=== PATIENT | female | born 1970 | race Caucasian/White ===

== ENCOUNTER 2018-03-25 20:27 | Inpatient (IN) | payer OTHER ==
[2018-03-25] MEDS ORDERED: Lactated Ringer's 500 ML in Lactated Ringer's 1,000 ML IV STA (21:52)
--- NOTE | 2018-03-25 22:24 | ED PDOC ---
"Arrival/HPI - General Chief Complaint: Abdominal Pain Time Seen by Provider: 03/25/18 21:49 Historian: Patient EM Caveat: Acuity of Condition - History of Present Illness Narrative History of Present Illness (Text): 03/25/18 22:14 Pt is a 47 yr old female with Left breast cancer and METS to the bone who presents to the Emergency department with right upper quadrant pain that radiates to the back and into the groin x 3 weeks. She is here today because the pain became very exquisite with nocturnal pain in the last 4 days. Pt reports that she is on oral chemotherapy since last March 2017 and receives hormone therapy injections. Reports that abdominal pain is worse while lying down; painful prior to defecating and becoming nauseated until she passes stool , then has relief of pain. Denies vomiting, diarrhea, change in urine, bowel, skin, no fever or chills, or any other complaints Time/Duration: > week Symptom Onset: Gradual Symptom Course: Worsening Quality: Pressure, Stabbing Severity Level: 6 Activities at Onset: Rest Context: Home Past Medical History - Provider Review Nursing Documentation Reviewed: Yes - Travel History Have you recently traveled outside [place] w/in the past 3 mons?: No - Infectious Disease Hx of Infectious Diseases: None - Cardiac Hx Cardiac Disorders: No - Pulmonary Hx Respiratory Disorders: No - Neurological Hx Neurological Disorder: No - HEENT Hx HEENT Disorder: No - Endocrine/Metabolic Hx Endocrine Disorders: No - Hematological/Oncological Hx Blood Disorders: Yes Hx Cancer: Yes (LEFT BREAST CANCER with mets) Other/Comment: Left breast CA stage 4 - Integumentary Hx Dermatological Disorder: Yes Other/Comment: RASH FROM BIOPSY ON LEFT BREAST - Musculoskeletal/Rheumatological Hx Falls: No - Gastrointestinal Hx Gastrointestinal Disorders: No - Genitourinary/Gynecological Hx Genitourinary Disorders: No - Psychiatric Hx Psychophysiologic Disorder: No Hx Substance Use: No - Surgical History Hx Breast Biopsy: Yes Other/Comment: SURGERY ON EAR. Port-a-Cath Placement right chest - Anesthesia Hx Anesthesia: Yes Hx Anesthesia Reactions: No Hx Malignant Hyperthermia: No Family/Social History - Physician Review Nursing Documentation Reviewed: Yes Family/Social History: Unknown Family HX Smoking Status: Never Smoked Hx Alcohol Use: No Hx Substance Use: No Allergies/Home Meds Allergies/Adverse Reactions: Allergies No Known Allergies Allergy (Verified 03/25/18 21:26) Home Medications: Home Meds Medication Instructions Recorded Confirmed Calcium Carbonate/Vitamin D3 1 each PO DAILY 09/10/16 12/22/17 [Calcium 500-Vit D3 400 Tablet] Anastrozole [Arimidex] 1 mg PO DAILY 07/31/17 12/22/17 Folic Acid/Mv,Iron,Min [One Daily 1 each PO DAILY 09/19/17 12/22/17 For Women Tablet] Ibuprofen [Motrin Tab] 250 mg PO Q3 PRN 10/14/17 12/22/17 Denosumab [Xgeva] 120 mg SC Q30D 12/22/17 12/22/17 Leuprolide [Lupron Depot] 7.5 mg IM Q30D 12/22/17 12/22/17 Turmeric/Herbal Complex No.278 150 mg PO QWK 12/22/17 12/22/17 [in-Fla-Mend Capsule] Gabapentin [Neurontin] 100 mg PO TID PRN 03/26/18 03/26/18 Review of Systems - Review of Systems Constitutional: Normal Eyes: Normal ENT: Normal Respiratory: Normal Cardiovascular: Normal Gastrointestinal: Abdominal Pain, Nausea, Appetite Changes. absent: Stool Changes, Constipation Genitourinary Female: Normal. absent: Dysuria, Frequency Musculoskeletal: Normal, Back Pain Skin: Normal Neurological: Normal Endocrine: Normal Hemo/Lymphatic: Normal Psychiatric: Normal Physical Exam Vital Signs Reviewed: Yes Vital Signs Temp Pulse Resp BP Pulse Ox 03/26/18 03:20 98.2 F 82 17 114/61 100 03/26/18 01:08 86 17 125/76 100 03/25/18 21:38 98.2 F 88 17 115/87 100 Temperature: Afebrile Blood Pressure: Normal Pulse: Regular Respiratory Rate: Normal Appearance: Positive for: Well-Appearing, Non-Toxic, Comfortable Pain Distress: None Mental Status: Positive for: Alert and Oriented X 3 - Systems Exam Head: Present: Atraumatic, Normocephalic Pupils: Present: PERRL Extroacular Muscles: Present: EOMI Conjunctiva: Present: Normal Mouth: Present: Moist Mucous Membranes Neck: Present: Normal Range of Motion Respiratory/Chest: Present: Clear to Auscultation, Good Air Exchange. No: Respiratory Distress, Accessory Muscle Use Cardiovascular: Present: Regular Rate and Rhythm, Normal S1, S2. No: Murmurs Abdomen: Present: Tenderness (RUQ), Normal Bowel Sounds, Mass/Organomegaly (RUQ) . No: Distention, Peritoneal Signs, Rebound, Guarding, McBurney's Point Tender , Rovsing's Sign Present, Hernias Back: Present: Normal Inspection. No: CVA Tenderness, Midline Tenderness, Paraspinal Tenderness Upper Extremity: Present: Normal Inspection, Normal ROM, NORMAL PULSES, Neurovascularly Intact. No: Cyanosis, Edema Lower Extremity: Present: Normal Inspection, NORMAL PULSES, Normal ROM, Neurovascularly Intact. No: Edema, CALF TENDERNESS Neurological: Present: GCS=15, CN II-XII Intact, Speech Normal Skin: Present: Warm, Dry, Normal Color. No: Rashes Psychiatric: Present: Alert, Oriented x 3, Normal Insight, Normal Concentration Medical Decision Making ED Course and Treatment: 03/25/18 22:35 Impression Pt is a 47 yr old female with a breast cancer and METS to the bone who presents to the Emergency department with right upper quadrant pain that starts in the front and radiates to the back and into the groin x 3 or more weeks. She is here today because the pain became very exquisite with stabbing pain for the past [address] abdominal and pelvis with IV contrast Labs Fluids--> LR Blood cultures and VBG Morphine Progress Note Pt declined morphine as she felt her pain was not significant enough; said she took 4 Tylenol 325mg x 4 prior to arriving Lactate 2.4 w/o fever Abnormal labs indicative of liver pathology Contacted by Radiologist, Dr. Chip Dueñas who indicated CT METS to liver with 5 cm mass Findings DW pt; will admit pt under Dr.Irfan Castano Resident called to evaluate pt CT Abdomen and Pelvis With Intravenous Contrast CLINICAL HISTORY: 47 years old, female; Pain; Abdominal pain; Localized; Right upper quadrant (ruq ); Additional info: Ruq pain TECHNIQUE: Axial computed tomography images of the abdomen and pelvis with intravenous contrast. All CT scans at this facility use one or more dose reduction techniques, viz.: automated exposure control; ma/kV adjustment per patient size (including targeted exams where dose is matched to indication; i.e. head); or iterative reconstruction technique. Coronal and sagittal reformatted images were created and reviewed. CONTRAST: 100 mL of OMNI 350 administered intravenously. COMPARISON: No relevant prior studies available. FINDINGS: Lung bases: Multiple bilateral lung nodules. ABDOMEN: Liver: Hepatomegaly. There are numerous mass is throughout the liver, consistent with metastases. Largest lesion is in the left hepatic lobe and measures 5.1 CM. Gallbladder and bile ducts: Unremarkable. No calcified stones. No ductal dilation. Pancreas: Unremarkable. No mass. No ductal dilation. Spleen: Hypodense lesion spleen measuring 1.5 a.m. Additional smaller hypodense lesions are noted. Adrenals: Unremarkable. No mass. Kidneys and ureters: Unremarkable. No solid mass. No hydronephrosis. Stomach and bowel: Unremarkable. No obstruction. PELVIS: GIULIANO ZAMBRANO | Final Radiology Report CONFIDENTIALITY STATEMENT This report is intended only for use by the referring physician, and only in accordance with law. If you received this in error, call [phone]. Page 2 of 2 Appendix: No findings to suggest acute appendicitis. Bladder: Distended urinary bladder. Reproductive: Unremarkable as visualized. ABDOMEN and PELVIS: Intraperitoneal space: Trace free fluid in pelvis. No free air. Bones/joints: Diffuse mottled appearance of bone marrow with multiple sclerotic foci consistent with diffuse osseous metastases. No acute fracture. No dislocation. Soft tissues: Unremarkable. Vasculature: Unremarkable. No abdominal aortic aneurysm. Lymph nodes: Multiple katey hepatis and perisplenic lymph nodes. Few enlarged retroperitoneal lymph nodes. IMPRESSION: 1. Numerous hepatic lesions, likely metastases. 2. Splenic lesions. 3. Diffuse mottled appearance of bone marrow with multiple sclerotic foci consistent with diffuse osseous metastases. 4. Multiple bilateral lung nodules. 03/26/18 02:[address] Ramez Castano to admit pt for METS to the liver s/p RUQ pain - Lab Interpretations Lab Results: 03/25/18 22:15 03/25/18 22:15 Lab Results 03/25/18 22:50: Lactate Dehydrogenase 4163 H, Total Creatine Kinase 40, Troponin I < 0.01 03/25/18 22:15: pO2 48, VBG pH 7.35, VBG pCO2 51.0, VBG HCO3 28.2 H, VBG Total CO2 29.8 H, VBG O2 Sat (Calc) 84.8 H, VBG Base Excess 1.7, VBG Potassium 4.8, Sodium 137.0, Chloride 104.0, Glucose 77, Lactate 2.4 H, FiO2 21.0, Venous Blood Potassium 4.8 03/25/18 22:15: Sodium 139, Chloride 100, Potassium 4.4, Carbon Dioxide 28, Anion Gap 15, BUN 16, Creatinine 0.7, Est GFR ( Amer) > 60, Est GFR (Non- Af Amer) > 60, Random Glucose 77, Calcium 9.4, Total Bilirubin 0.3, AST 129 H D , ALT 74 H, Alkaline Phosphatase 297 H D, Total Protein 7.4, Albumin 3.9, Globulin 3.6, Albumin/Globulin Ratio 1.1, Lipase 83 03/25/18 22:15: PT 12.7 H, INR 1.11 H, APTT 31.3 03/25/18 22:15: WBC 8.3, RBC 3.02 L, Hgb 8.3 L, Hct 26.3 L, MCV 87.1, MCH 27.5, MCHC 31.6, RDW 15.7 H, Plt Count 332, MPV 8.0, Gran % 58.1, Lymph % (Auto) 31.0 , Ballard % (Auto) 8.6 H, Eos % (Auto) 1.9, Baso % (Auto) 0.4, Gran # 4.81, Lymph # (Auto) 2.6, Ballard # (Auto) 0.7 H, Eos # (Auto) 0.2, Baso # (Auto) 0.03, Neutrophils % (Manual) 55, Band Neutrophils % 2, Lymphocytes % (Manual) 33, Monocytes % (Manual) 1, Eosinophils % (Manual) 2, Metamyelocytes % 3, Myelocytes % 4, Nucleated RBC % 1, Platelet Evaluation Normal I have reviewed the lab results: Yes ( ) Interpretation: Abnormal lab values - RAD Interpretation Narrative RAD Interpretations (Text): 03/26/18 02:15 EXAM: CT Abdomen and Pelvis With Intravenous Contrast CLINICAL HISTORY: 47 years old, female; Pain; Abdominal pain; Localized; Right upper quadrant (ruq ); Additional info: Ruq pain TECHNIQUE: Axial computed tomography images of the abdomen and pelvis with intravenous contrast. All CT scans at this facility use one or more dose reduction techniques, viz.: automated exposure control; ma/kV adjustment per patient size (including targeted exams where dose is matched to indication; i.e. head); or iterative reconstruction technique. Coronal and sagittal reformatted images were created and reviewed. CONTRAST: 100 mL of OMNI 350 administered intravenously. COMPARISON: No relevant prior studies available. FINDINGS: Lung bases: Multiple bilateral lung nodules. ABDOMEN: Liver: Hepatomegaly. There are numerous mass is throughout the liver, consistent with metastases. Largest lesion is in the left hepatic lobe and measures 5.1 CM. Gallbladder and bile ducts: Unremarkable. No calcified stones. No ductal dilation. Pancreas: Unremarkable. No mass. No ductal dilation. Spleen: Hypodense lesion spleen measuring 1.5 a.m. Additional smaller hypodense lesions are noted. Adrenals: Unremarkable. No mass. Kidneys and ureters: Unremarkable. No solid mass. No hydronephrosis. Stomach and bowel: Unremarkable. No obstruction. PELVIS Appendix: No findings to suggest acute appendicitis. Bladder: Distended urinary bladder. Reproductive: Unremarkable as visualized. ABDOMEN and PELVIS: Intraperitoneal space: Trace free fluid in pelvis. No free air. Bones/joints: Diffuse mottled appearance of bone marrow with multiple sclerotic foci consistent with diffuse osseous metastases. No acute fracture. No dislocation. Soft tissues: Unremarkable. Vasculature: Unremarkable. No abdominal aortic aneurysm. Lymph nodes: Multiple katey hepatis and perisplenic lymph nodes. Few enlarged retroperitoneal lymph nodes. IMPRESSION: 1. Numerous hepatic lesions, likely metastases. 2. Splenic lesions. 3. Diffuse mottled appearance of bone marrow with multiple sclerotic foci consistent with diffuse osseous metastases. 4. Multiple bilateral lung nodules. Thank you for allowing us to participate in the care of Radiology Orders: 03/25/18 22:29 CHEST TWO VIEWS (PA/LAT) [RAD] Stat 03/25/18 22:30 ABD & PELVIS IV CONTRAST ONLY [CT] Stat - EKG Interpretation Interpreted by ED Physician: Yes (NSR with a rate of 80) - Medication Orders Current Medication Orders: Anastrozole (Arimidex 1 Mg Tab) 1 mg PO DAILY [facility] Last Admin: 03/26/18 10:27 Dose: 1 mg Calcium/Vitamin D (Oscal-D 250 Mg-125 Units Tab) 2 tab PO DAILY URSZULA Last Admin: 03/26/18 10:15 Dose: 2 tab Enoxaparin Sodium (Lovenox) 40 mg SC DAILY URSZULA PRN Reason: Protocol Last Admin: 03/26/18 10:14 Dose: 40 mg Subcutaneous Administrations Document 03/26/18 10:14 ID (Rec: 03/26/18 10:14 ID [facility] [id number]) Charges for Administration # of Subcutaneous Administrations 1 Gabapentin (Neurontin) 100 mg PO TID PRN; Protocol PRN Reason: Pain, severe (8-10) Lactated Ringer's (Lactated Ringer's) 1,000 mls @ 100 mls/hr IV .Q10H URSZULA Last Admin: 03/26/18 04:07 Dose: 100 mls/hr eMAR Start Stop Document 03/26/18 04:07 MAD (Rec: 03/26/18 04:07 MAD [facility] [id number]) Intravenous Solution Start Date 03/26/18 Start Time 04:07 Ibuprofen (Motrin Tab) 600 mg PO Q6H PRN PRN Reason: Pain, moderate (4-7) Last Admin: 03/26/18 10:34 Dose: 600 mg MAR Pain/Vitals Document 03/26/18 10:34 ID (Rec: 03/26/18 10:34 ID [facility] [id number]) Pain Reassessment Is This A Pain ReAssessment? No Sleep Is patient sleeping during reassessment? No Presence of Pain Presence of Pain Yes Pain Scale Used Pain Scale Used Numeric Location Upper or Lower Lower Pain Location Body Site Back Description Intermittent Pain Behavior Moaning Grasping Site Facial Grimacing Aggravating Factors Changing Position Exercise/Activity Alleviating Factors Medication Morphine Sulfate (Morphine) 2 mg IVP Q4H PRN PRN Reason: Pain, severe (8-10) Non-Formulary Medication (Folic Acid/Mv,Iron,Min [One Daily For Women Tablet]) 1 each PO DAILY [facility] Oxycodone/Acetaminophen (Percocet 5/325 Mg Tab) 1 tab PO Q6 PRN PRN Reason: Pain, moderate (4-7) Stop: 03/29/18 02:24 Pantoprazole Sodium (Protonix Ec Tab) 40 mg PO 0600 URSZULA Discontinued Medications Lactated Ringer's 500 ml/ (Lactated Ringer's) 1,500 mls @ 1,000 mls/hr IV BOLUS STA Stop: 03/25/18 23:21 Last Admin: 03/25/18 22:33 Dose: 1,000 mls/hr eMAR Start Stop Document 03/25/18 22:33 RD (Rec: 03/25/18 22:33 RD [id number]) Intravenous Solution Start Date 03/25/18 Start Time 22:33 End Date 03/26/18 End time 00:03 Total Infusion Time 90 Morphine Sulfate (Morphine) 2 mg IVP STAT STA Stop: 03/25/18 21:53 Last Admin: 03/25/18 22:36 Dose: Not Given Non-Admin Reason: Patient Refused Disposition/Present on Arrival - Present on Arrival Any Indicators Present on Arrival: Yes History of DVT/PE: No History of Uncontrolled Diabetes: No Urinary Catheter: No History of Decub. Ulcer: No History Surgical Site Infection Following: None - Disposition Have Diagnosis and Disposition been Completed?: Yes Diagnosis: Breast cancer metastasized to bone, Secondary liver cancer Disposition: HOSPITALIZED Disposition Time: 01:50 Patient Plan: Admission Patient Problems: Current Active Problems Problem Status Onset Breast cancer metastasized to bone Acute Secondary liver cancer Acute Condition: STABLE"
[2018-03-25] MEDS: Morphine 2 mg/2 mL syringe IVP STA ×2 (22:32→22:36)
[2018-03-25 22:42] LABS: BASO # 0.03 K/mm3 (0.0-2.0); BASO % 0.4 % (0.0-3.0); EOS # 0.2 (0.0-0.7); EOS % 1.9 % (1.5-5.0); GRAN # 4.81 (1.4-6.5); GRAN % 58.1 % (50.0-68.0); HEMOGLOBIN 8.3 g/dL (12.0-16.0); LYMPH # 2.6 (1.2-3.4); MEAN CELL VOLUME 87.1 fl (80.0-105.0); MEAN CORPUSCULAR HEMOGLOBIN 27.5 pg (25.0-35.0); MEAN CORPUSCULAR HGB CONC 31.6 g/dl (31.0-37.0); MONO # 0.7 (0.1-0.6); MONO % 8.6 % (1.0-6.0); PLATELET COUNT 332 10^3/uL (120.0-450.0); RBC 3.02 10^6/uL (3.5-6.1); RED CELL DISTRIBUTION WIDTH 15.7 % (11.5-14.5); WHITE BLOOD COUNT 8.3 10^3/ul (4.5-11.0)
[2018-03-25 22:43] LABS: ALB/GLOB RATIO 1.1 (1.1-1.8); ALBUMIN 3.9 g/dL (3.0-4.8); ALT/SGPT 74 U/L (7-56); AST/SGOT 129 U/L (14-36); BLOOD UREA NITROGEN 16 mg/dL (7-21); CALCIUM 9.4 mg/dL (8.4-10.5); GFR AFRICAN-AMERICAN > 60; GFR NON-AFRICAN AMERICAN > 60; INR 1.11 (0.93-1.08); LIPASE 83 U/L (23-300); PARTIAL THROMBOPLASTIN TIME 31.3 Seconds (25.1-36.5); PROTHROMBIN TIME 12.7 SECONDS (9.4-12.5)
[2018-03-25] MEDS ORDERED: Iohexol 350 MG/100 ML VIAL ONE (22:48)
[2018-03-25 23:07] LABS: BAND 2 % (0-2); EOSINOPHIL 2 % (0.0-3.0); LYMPHOCYTE 33 % (22.0-35.0); METAMYELOCYTE 3 %; MONOCYTE 1 % (1.0-6.0); MYELOCYTE 4 %; NEUTROPHIL 55 % (50.0-70.0); NUCLEATED RED BLOOD CELL 1 %; PLATELET ESTIMATE NORMAL (NORMAL)
[2018-03-25 23:08] LABS: VENOUS BLOOD GAS BASE EXCESS 1.7 mmol/L (0.0-2.0); VENOUS BLOOD GAS PO2 48 mm/Hg (30-55); VENOUS BLOOD PH 7.35 (7.32-7.43)
[2018-03-25 23:24] LABS: TROPONIN I < 0.01 ng/mL
--- NOTE | 2018-03-26 00:55 | CT ---
EXAM: CT Abdomen and Pelvis With Intravenous Contrast CLINICAL HISTORY: 47 years old, female; Pain; Abdominal pain; Localized; Right upper quadrant (ruq); Additional info: Ruq pain TECHNIQUE: Axial computed tomography images of the abdomen and pelvis with intravenous contrast. All CT scans at this facility use one or more dose reduction techniques, viz.: automated exposure control; ma/kV adjustment per patient size (including targeted exams where dose is matched to indication; i.e. head); or iterative reconstruction technique. Coronal and sagittal reformatted images were created and reviewed. CONTRAST: 100 mL of OMNI 350 administered intravenously. COMPARISON: No relevant prior studies available. FINDINGS: Lung bases: Multiple bilateral lung nodules. ABDOMEN: Liver: Hepatomegaly. There are numerous mass is throughout the liver, consistent with metastases. Largest lesion is in the left hepatic lobe and measures 5.1 CM. Gallbladder and bile ducts: Unremarkable. No calcified stones. No ductal dilation. Pancreas: Unremarkable. No mass. No ductal dilation. Spleen: Hypodense lesion spleen measuring 1.5 a.m. Additional smaller hypodense lesions are noted. Adrenals: Unremarkable. No mass. Kidneys and ureters: Unremarkable. No solid mass. No hydronephrosis. Stomach and bowel: Unremarkable. No obstruction. PELVIS: Appendix: No findings to suggest acute appendicitis. Bladder: Distended urinary bladder. Reproductive: Unremarkable as visualized. ABDOMEN and PELVIS: Intraperitoneal space: Trace free fluid in pelvis. No free air. Bones/joints: Diffuse mottled appearance of bone marrow with multiple sclerotic foci consistent with diffuse osseous metastases. No acute fracture. No dislocation. Soft tissues: Unremarkable. Vasculature: Unremarkable. No abdominal aortic aneurysm. Lymph nodes: Multiple katey hepatis and perisplenic lymph nodes. Few enlarged retroperitoneal lymph nodes. IMPRESSION: 1. Numerous hepatic lesions, likely metastases. 2. Splenic lesions. 3. Diffuse mottled appearance of bone marrow with multiple sclerotic foci consistent with diffuse osseous metastases. 4. Multiple bilateral lung nodules.
--- NOTE | 2018-03-26 02:14 | CP.PCM.HP ---
<Saleem Mena - Last Filed: 03/26/18 03:07> History of Present Illness - History of Present Illness History of Present Illness: This patient is a 47 year old female with a PMHx of Breast CA w/ bone metastasis (on chemotherapy) who presented with sharp, 10/10, constant abdominal pain that woke her up out of her sleep. Patient has been experiencing this pain for about 2 weeks and states it has been worsening. Patient took lemon water and green tea to help treat the pain which has been mildly successful. ROS POSITIVES: Nausea, Poor Appetitie NEGATIVES: Fever, chills, chest pain, SOB, Vomiting, changes in bowel habit, blood in the stool, melena, urinary symptoms PMHx: Breast CA with bone METS PSHx: Right Chest Wall Portacath Allergies: Dust SocialHx: Denies tobacco alcohol or illicit drug use Hos: 11/2016 for Flu Meds: Reviewed PMD: [facility] (Dr. Bob/Dr. Rodriguez (PGY-3) Oncologist: Dr. Mak Present on Admission - Present on Admission Any Indicators Present on Admission: No Review of Systems - Review of Systems All systems: reviewed and no additional remarkable complaints except (As Per HPI ) Review of Systems: As per HPI Past Patient History - Infectious Disease Hx of Infectious Diseases: None - Past Medical History & Family History Past Medical History?: Yes - Past Social History Smoking Status: Never Smoked - CARDIAC Hx Cardiac Disorders: No - PULMONARY Hx Respiratory Disorders: No - NEUROLOGICAL Hx Neurological Disorder: No - HEENT Hx HEENT Problems: No - ENDOCRINE/METABOLIC Hx Endocrine Disorders: No - HEMATOLOGICAL/ONCOLOGICAL Hx Blood Disorders: Yes Hx Cancer: Yes (LEFT BREAST CANCER with mets) Other/Comment: Left breast CA stage 4 - INTEGUMENTARY Hx Dermatological Problems: Yes Other/Comment: RASH FROM BIOPSY ON LEFT BREAST - MUSCULOSKELETAL/RHEUMATOLOGICAL Hx Falls: No - GASTROINTESTINAL Hx Gastrointestinal Disorders: No - GENITOURINARY/GYNECOLOGICAL Hx Genitourinary Disorders: No - PSYCHIATRIC Hx Psychophysiologic Disorder: No Hx Substance Use: No - SURGICAL HISTORY Hx Breast Biopsy: Yes Other/Comment: SURGERY ON EAR. Port-a-Cath Placement right chest - ANESTHESIA Hx Anesthesia: Yes Hx Anesthesia Reactions: No Hx Malignant Hyperthermia: No Meds Allergies/Adverse Reactions: Allergies Allergy/AdvReac Type Severity Reaction Status Date / Time No Known Allergies Allergy Verified 03/25/18 21:26 Physical Exam - Constitutional Appears: No Acute Distress - Head Exam Head Exam: ATRAUMATIC, NORMAL INSPECTION, NORMOCEPHALIC - Eye Exam Eye Exam: EOMI, Normal appearance - ENT Exam ENT Exam: Mucous Membranes Moist - Neck Exam Neck exam: Positive for: Normal Inspection - Respiratory Exam Respiratory Exam: Clear to Auscultation Bilateral, NORMAL BREATHING PATTERN. absent: Rales, Rhonchi, Wheezes - Cardiovascular Exam Cardiovascular Exam: RRR, +S1, +S2 - GI/Abdominal Exam GI & Abdominal Exam: Normal Bowel Sounds, Soft, Tenderness (RUQ). absent: Distended, Guarding, Organomegaly, Rebound, Rigid - Extremities Exam Extremities exam: Positive for: normal capillary refill, normal inspection. Negative for: pedal edema - Neurological Exam Neurological exam: Alert, Oriented x3 - Psychiatric Exam Psychiatric exam: Normal Affect, Normal Mood - Skin Skin Exam: Dry, Intact, Normal Color, Warm Results - Vital Signs Recent Vital Signs: Last Vital Signs Temp 98.2 F 03/25/18 21:38 Pulse 86 03/26/18 01:08 Resp 17 03/26/18 01:08 BP 125/76 03/26/18 01:08 Pulse Ox 100 03/26/18 01:08 - Labs Result Diagrams: 03/25/18 22:15 03/25/18 22:15 Labs: Laboratory Results - last 24 hr 03/25/18 03/25/18 03/25/18 22:15 22:15 22:15 WBC 8.3 RBC 3.02 L Hgb 8.3 L Hct 26.3 L MCV 87.1 MCH 27.5 MCHC 31.6 RDW 15.7 H Plt Count 332 MPV 8.0 Gran % 58.1 Lymph % (Auto) 31.0 [place] % (Auto) 8.6 H Eos % (Auto) 1.9 Baso % (Auto) 0.4 Gran # 4.81 Lymph # (Auto) 2.6 [place] # (Auto) 0.7 H Eos # (Auto) 0.2 Baso # (Auto) 0.03 Neutrophils % (Manual) 55 Band Neutrophils % 2 Lymphocytes % (Manual) 33 Monocytes % (Manual) 1 Eosinophils % (Manual) 2 Metamyelocytes % 3 Myelocytes % 4 Nucleated RBC % 1 Platelet Evaluation Normal PT 12.7 H INR 1.11 H APTT 31.3 pO2 VBG pH VBG pCO2 VBG HCO3 VBG Total CO2 VBG O2 Sat (Calc) VBG Base Excess VBG Potassium Sodium 139 Chloride 100 Glucose Lactate FiO2 Potassium 4.4 Carbon Dioxide 28 Anion Gap 15 BUN 16 Creatinine 0.7 Est GFR ( Amer) > 60 Est GFR (Non-Af Amer) > 60 Random Glucose 77 Calcium 9.4 Total Bilirubin 0.3 AST 129 H D ALT 74 H Alkaline Phosphatase 297 H D Lactate Dehydrogenase Total Creatine Kinase Troponin I Total Protein 7.4 Albumin 3.9 Globulin 3.6 Albumin/Globulin Ratio 1.1 Lipase 83 Venous Blood Potassium 03/25/18 03/25/18 22:15 22:50 WBC RBC Hgb Hct MCV MCH MCHC RDW Plt Count MPV Gran % Lymph % (Auto) [place] % (Auto) Eos % (Auto) Baso % (Auto) Gran # Lymph # (Auto) [place] # (Auto) Eos # (Auto) Baso # (Auto) Neutrophils % (Manual) Band Neutrophils % Lymphocytes % (Manual) Monocytes % (Manual) Eosinophils % (Manual) Metamyelocytes % Myelocytes % Nucleated RBC % Platelet Evaluation PT INR APTT pO2 48 VBG pH 7.35 VBG pCO2 51.0 VBG HCO3 28.2 H VBG Total CO2 29.8 H VBG O2 Sat (Calc) 84.8 H VBG Base Excess 1.7 VBG Potassium 4.8 Sodium 137.0 Chloride 104.0 Glucose 77 Lactate 2.4 H FiO2 21.0 Potassium Carbon Dioxide Anion Gap BUN Creatinine Est GFR ( Amer) Est GFR (Non-Af Amer) Random Glucose Calcium Total Bilirubin AST ALT Alkaline Phosphatase Lactate Dehydrogenase 4163 H Total Creatine Kinase 40 Troponin I < 0.01 Total Protein Albumin Globulin Albumin/Globulin Ratio Lipase Venous Blood Potassium 4.8 Assessment & Plan - Assessment and Plan (Free Text) Assessment: 47 year old female with a PMHx of Breast CA w/ bone metastasis (on chemotherapy ) admitted for evaluation and treatment of intractable abdominal pain Plan: Abdominal Pain CT Abd/Pelvis (Adm): 1. Numerous hepatic lesions, likely metastases. 2. Splenic lesions. 3. Diffuse mottled appearance of bone marrow with multiple sclerotic foci consistent with diffuse osseous metastases. 4. Multiple bilateral lung nodules. Likely 2/2 to Liver metastasis. Pain Control: Morphine 2 Q4H PRN, Home Ibuprofen, Home Gabapentin, Home Percocet (Held) Consider Pain Mgmt Consult Oncology Consult (Dr. Mak) Fluids: LR @ 100mls/hr Elevated LFT's Likely 2/2 to Metastasis Monitor Normocytic Anemia Likely Anemia of Chronic Disease vs chemotherapy induced Anemia Workup Heme/Onc Consult Home Iron/Multivitamins/Folic Acid/Multiminerals Poor Appetite Patient was started on Appetite stimulant by primary but she does not remember the name and has not started taking it yet. Medication reconciliation in AM. Hx of Breast CA Home Arimidex Heme/Onc Consult (Dr. Mak) Patient discussed with Dr. Omaira Mena, PGY-1 <Scot Castano - Last Filed: 03/26/18 06:13> Results - Vital Signs Recent Vital Signs: Last Vital Signs Temp 97.8 F 03/26/18 05:11 Pulse 86 03/26/18 05:11 Resp 20 03/26/18 05:11 BP 129/78 03/26/18 05:11 Pulse Ox 100 03/26/18 03:20 - Labs Result Diagrams: 03/25/18 22:15 03/25/18 22:15 Labs: Laboratory Results - last 24 hr 03/26/18 03/26/18 02:02 03:00 pO2 69 H VBG pH 7.35 VBG pCO2 47.0 VBG HCO3 25.9 VBG Total CO2 27.3 VBG O2 Sat (Calc) 94.2 H VBG Base Excess -0.2 L VBG Potassium 4.1 Sodium 138.0 Chloride 105.0 Glucose 90 Lactate 2.4 H FiO2 21.0 Venous Blood Potassium 4.1 Urine Color yellow Urine Appearance Clear Urine pH 6.0 Ur Specific [place] 1.010 Urine Protein Negative Urine Glucose (UA) Negative Urine Ketones Negative Urine Blood Negative Urine Nitrate Negative Urine Bilirubin Negative Urine Urobilinogen 0.2 Ur Leukocyte Esterase Negative
[2018-03-26 02:19] LABS: URINE BILIRUBIN NEGATIVE (NEGATIVE); URINE BLOOD NEGATIVE (NEGATIVE); URINE GLUCOSE (UA) NEGATIVE (NEGATIVE); URINE LEUKOCYTE ESTERASE NEGATIVE Leu/uL (NEGATIVE); URINE PROTEIN NEGATIVE mg/dL (<30 mg/dL); URINE UROBILINOGEN 0.2 E.U./dL (<1 E.U./dL)
[2018-03-26] MEDS ORDERED: Oxycodone/Acetaminophen 5/325 mg Tab PO PRN (02:23)
[2018-03-26 02:57] LABS: URINE APPEARANCE CLEAR (CLEAR)
[2018-03-26 03:10] LABS: VENOUS BLOOD GAS BASE EXCESS -0.2 mmol/L (0.0-2.0); VENOUS BLOOD GAS PO2 69 mm/Hg (30-55); VENOUS BLOOD PH 7.35 (7.32-7.43)
[2018-03-26] MEDS ORDERED: Morphine 2 mg/2 mL syringe IVP PRN (03:18)
[2018-03-26] MEDS: Lactated Ringer's 1,000 ML IV SCH ×2 (04:07→14:49)
[2018-03-26 05:22] VITALS: BMI 26.4
[2018-03-26] MEDS ORDERED: Pantoprazole 40 mg EC Tab PO SCH (06:00)
[2018-03-26 07:44] LABS: BASO # 0.03 K/mm3 (0.0-2.0); BASO % 0.4 % (0.0-3.0); EOS # 0.2 (0.0-0.7); EOS % 2.5 % (1.5-5.0); GRAN # 4.21 (1.4-6.5); GRAN % 54.8 % (50.0-68.0); HEMOGLOBIN 7.8 g/dL (12.0-16.0); LYMPH # 2.6 (1.2-3.4); MEAN CELL VOLUME 86.7 fl (80.0-105.0); MEAN CORPUSCULAR HEMOGLOBIN 27.3 pg (25.0-35.0); MEAN CORPUSCULAR HGB CONC 31.5 g/dl (31.0-37.0); MEAN PLATELET VOLUME 8.1 fl (7.0-11.0); MONO # 0.6 (0.1-0.6); MONO % 8.3 % (1.0-6.0); PLATELET COUNT 288 10^3/uL (120.0-450.0); RBC 2.86 10^6/uL (3.5-6.1); RED CELL DISTRIBUTION WIDTH 15.6 % (11.5-14.5); WHITE BLOOD COUNT 7.7 10^3/ul (4.5-11.0)
[2018-03-26 07:57] LABS: ALB/GLOB RATIO 1.1 (1.1-1.8); ALBUMIN 3.4 g/dL (3.0-4.8); ALT/SGPT 65 U/L (7-56); AST/SGOT 109 U/L (14-36); BLOOD UREA NITROGEN 13 mg/dL (7-21); GFR AFRICAN-AMERICAN > 60; GFR NON-AFRICAN AMERICAN > 60
[2018-03-26 07:59] LABS: IRON 80 ug/dL (45-180)
[2018-03-26 08:09] LABS: % IRON SATURATION 31 % (20-55); TOTAL IRON BINDING CAPACITY 256 ug/dL (265-497)
[2018-03-26 08:23] LABS: VENOUS BLOOD GAS BASE EXCESS 2.2 mmol/L (0.0-2.0); VENOUS BLOOD GAS PO2 67 mm/Hg (30-55); VENOUS BLOOD PH 7.39 (7.32-7.43)
--- NOTE | 2018-03-26 09:12 | RAD ---
HISTORY: RUQ pain COMPARISON: CT scan 03/26/2018. PET-CT scan 03/18/2017, bone scan 01/12/2018 TECHNIQUE: Chest PA and lateral FINDINGS: LUNGS: No active pulmonary disease. PLEURA: No significant pleural effusion identified. No pneumothorax apparent. CARDIOVASCULAR: Heart is normal in size. Right Port-A-Cath is noted with its tip in the superior vena cava. OSSEOUS STRUCTURES: Bony metastasis is better seen on the CT scan. No fractures. VISUALIZED UPPER ABDOMEN: Normal. OTHER FINDINGS: None. IMPRESSION: No focal infiltrate or CHF.
[2018-03-26] MEDS: Enoxaparin 40 mg Syringe SC SCH (10:14)
[2018-03-26] MEDS: Calcium-Vit D 250 mg-125 Units Tab UD PO SCH (10:15)
--- NOTE | 2018-03-26 22:45 | CARD ---
APPROVED REPORT EKG Measurement Heart [id number] <Conclusion> Normal sinus rhythm Low voltage QRS Borderline ECG
[2018-03-27] MEDS: Lactated Ringer's 1,000 ML IV SCH (03:07)
[2018-03-27] MEDS ORDERED: Morphine 4 mg/ml ISec IVP PRN (06:35)
[2018-03-27 08:08] LABS: BASO # 0.04 K/mm3 (0.0-2.0); BASO % 0.5 % (0.0-3.0); EOS # 0.2 (0.0-0.7); EOS % 2.8 % (1.5-5.0); GRAN # 3.94 (1.4-6.5); HEMOGLOBIN 8.2 g/dL (12.0-16.0); LYMPH # 2.5 (1.2-3.4); LYMPH % 33.1 % (22.0-35.0); MEAN CELL VOLUME 87.2 fl (80.0-105.0); MEAN CORPUSCULAR HGB CONC 30.9 g/dl (31.0-37.0); MONO # 0.8 (0.1-0.6); MONO % 10.6 % (1.0-6.0); RBC 3.04 10^6/uL (3.5-6.1); WHITE BLOOD COUNT 7.4 10^3/ul (4.5-11.0)
[2018-03-27 08:16] LABS: ALB/GLOB RATIO 1.1 (1.1-1.8); ALBUMIN 3.6 g/dL (3.0-4.8); ALT/SGPT 70 U/L (7-56); AST/SGOT 103 U/L (14-36); BLOOD UREA NITROGEN 15 mg/dL (7-21); CALCIUM 9.1 mg/dL (8.4-10.5); GFR AFRICAN-AMERICAN > 60; GFR NON-AFRICAN AMERICAN > 60
[2018-03-27] MEDS ORDERED: oxyCODONE 5 mg Immediate Release Tab PO PRN (09:59)
[2018-03-27] MEDS ORDERED: Multivitamin With Minerals Tab PO SCH (10:00)
[2018-03-27] MEDS: Calcium-Vit D 250 mg-125 Units Tab UD PO SCH (10:20)
[2018-03-27] MEDS: Enoxaparin 40 mg Syringe SC SCH (10:20)
--- NOTE | 2018-03-27 13:35 | CP.PCM.PN ---
<Amara Lazo - Last Filed: 03/27/18 14:49> Subjective - Date & Time of Evaluation Date of Evaluation: 03/27/18 Time of Evaluation: 13:33 - Subjective Subjective: Internal Medicine Progress Note: Patient seen and examined at bedside. Per nursing no acute events overnight. Patient was complaining of back pain and abdominal pain, morphine given with relief in symptoms. She is tolerating diet. Patient to be seen by Dr Mak later today. She denies headaches, dizziness, cp, palpitations, sob, abdominal pain, urinary symptoms, numbness/tingling. Objective - Vital Signs/Intake and Output Vital Signs (last 24 hours): Temp Pulse Resp BP Pulse Ox 97.8 F 96 H 20 125/81 99 03/27/18 08:52 03/27/18 08:52 03/27/18 08:52 03/27/18 08:52 03/27/18 08:52 Intake and Output: 03/27/18 03/27/18 06:59 18:59 Intake Total 840 Balance 840 - Medications Medications: Current Medications Anastrozole (Arimidex 1 Mg Tab) 1 mg PO DAILY [facility] Last Admin: 03/27/18 11:13 Dose: 1 mg Calcium/Vitamin D (Oscal-D 250 Mg-125 Units Tab) 2 tab PO DAILY [facility] Last Admin: 03/27/18 10:20 Dose: 2 tab Enoxaparin Sodium (Lovenox) 40 mg SC DAILY [facility] PRN Reason: Protocol Last Admin: 03/27/18 10:20 Dose: 40 mg Gabapentin (Neurontin) 100 mg PO TID PRN; Protocol PRN Reason: Pain, severe (8-10) Multivitamins/Minerals (Therapeutic-M Tab) 1 tab PO DAILY [facility] Last Admin: 03/27/18 10:20 Dose: 1 tab Oxycodone HCl (Oxycodone Immediate Release Tab) 5 mg PO Q6H PRN PRN Reason: Pain, moderate (4-7) Pantoprazole Sodium (Protonix Ec Tab) 40 mg PO 0600 [facility] Last Admin: 03/27/18 05:27 Dose: 40 mg - Labs Labs: 03/27/18 07:30 03/27/18 07:30 PT 12.7 SECONDS (9.4-12.5) H 03/25/18 22:15 INR 1.11 (0.93-1.08) H 03/25/18 22:15 APTT 31.3 Seconds (25.1-36.5) 03/25/18 22:15 - Additional Findings Additional findings: - Constitutional Appears: No Acute Distress - Head Exam Head Exam: ATRAUMATIC, NORMAL INSPECTION, NORMOCEPHALIC - Eye Exam Eye Exam: EOMI, Normal appearance - ENT Exam ENT Exam: Mucous Membranes Moist - Neck Exam Neck exam: Positive for: Normal Inspection - Respiratory Exam Respiratory Exam: Clear to Auscultation Bilateral, NORMAL BREATHING PATTERN. absent: Rales, Rhonchi, Wheezes - Cardiovascular Exam Cardiovascular Exam: RRR, +S1, +S2 - GI/Abdominal Exam GI & Abdominal Exam: Normal Bowel Sounds, Soft, No Tenderness absent: Distended, Guarding, Organomegaly, Rebound, Rigid - Extremities Exam Extremities exam: Positive for: normal capillary refill, normal inspection. Negative for: pedal edema - Neurological Exam Neurological exam: Alert, Oriented x3 - Psychiatric Exam Psychiatric exam: Normal Affect, Normal Mood - Skin Skin Exam: Dry, Intact, Normal Color, Warm Assessment and Plan - Assessment and Plan (Free Text) Assessment: Patient is a 47 year old female with a PMHx of Breast CA w/ bone metastasis (on chemotherapy) admitted for evaluation and treatment of intractable abdominal pain Plan: 1. Abdominal Pain -Abdominal pain improving -CT Abd/Pelvis showed: Numerous hepatic lesions, likely metastases. Splenic lesions. Diffuse mottled appearance of bone marrow with multiple sclerotic foci consistent with diffuse osseous metastases. Multiple bilateral lung nodules. -Abdominal pain Likely 2/2 to Liver metastasis. -Pain Control: Oxycodone 5mg PO Q6H, Home Ibuprofen, Home Gabapentin, Home Percocet (Held) -Oncology Consult (Dr. Mak) -Fluids discontinued as she is tolerating diet 2. Elevated LFT's -Likely 2/2 to Metastasis -Trending diet -Avoid hepatotoxic agents 3. Normocytic Anemia -Likely Anemia of Chronic Disease vs chemotherapy induced -Hgb Stable -Heme/Onc Consult -Home Iron/Multivitamins/Folic Acid/Multiminerals 4. Poor Appetite -Patient was started on Appetite stimulant by primary but she does not remember the name and has not started taking it yet. -Patient ate all of her breakfast this morning -Will discontinue fluids at this time 5. Hx of Breast CA -Home Arimidex -Heme/Onc Consult (Dr. Mak) -Will likely D/C after Heme/Onc evaluation Plan discussed with Dr Santana <Earnest Santana - Last Filed: 03/28/18 13:22> Objective - Vital Signs/Intake and Output Vital Signs (last 24 hours): Temp Pulse Resp BP Pulse Ox 98.6 F 80 18 115/73 100 03/27/18 15:09 03/27/18 15:09 03/27/18 15:09 03/27/18 15:09 03/27/18 15:09 - Labs Labs: 03/27/18 07:30 03/27/18 07:30 PT 12.7 SECONDS (9.4-12.5) H 03/25/18 22:15 INR 1.11 (0.93-1.08) H 03/25/18 22:15 APTT 31.3 Seconds (25.1-36.5) 03/25/18 22:15 Attending/Attestation - Attestation I have personally seen and examined this patient.: Yes I have fully participated in the care of the patient.: Yes I have reviewed all pertinent clinical information, including history, physical exam and plan: Yes Notes (Text): 03/28/18 13:18 Medical record note made by the resident after discussion with my direction and input after the patient was personally seen and examined by me. I have reviewed the chart and agree that the record accurately reflects by personal performance of the history, physical exam, data review, and medical decision-making, in the course for the patient. I have also personally directed the plan of care. 47 year old female with a history of stage IV breast cancer (ER/MS positive, HER2 negative), with bone metastasis on hormonal therapy, admitted with abdominal pain, found to have progression of her cancer to her lungs, liver, and spleen. lesions, concerning for metastatic disease.Patient abdominal pain has improved.She is tolerating diet.Patient will be evaluated by Oncology prior to discharge. Management plan was discussed in detail with patient. Education was provided.
[2018-03-27 15:10] VITALS: BP 115/73; PULSE 80; RESP 18; TEMP 98.6; O2SAT 100
--- NOTE | 2018-03-27 20:26 | CP.PCM.CON ---
History of Present Illness - History of Present Illness History of Present Illness: 47 year old female with a history of stage IV breast cancer (ER/DC positive, HER2 negative), with bone metastasis on hormonal therapy, admitted with abdominal pain, found to have progression of her cancer to her lungs, liver, and spleen. The patient notes to worsening abdominal pain for the past 2-3 days which prompted her to come to the ER. A CT scan showed liver lesions, base of the lung lesions, and splenic lesions concerning for metastatic disease. Past medical history: stage IV breast cancer (ER/DC positive, HER2 negative), with bone metastasis on hormonal therapy Past surgical history: None Family history: Denies hematologic and oncologic problems Social history: Denies tobacco, alcohol, and illicit drug use. Allergies: NKA Review of systems: All remaining review of systems including HEENT, cardiovascular, respiratory, gastrointestinal, genitourinary, musculoskeletal, dermatologic, neurologic, and psychiatric are negative unless mentioned in the HPI. Past Patient History - Infectious Disease Hx of Infectious Diseases: None - Past Medical History & Family History Past Medical History?: Yes - Past Social History Smoking Status: Never Smoked - CARDIAC Hx Cardiac Disorders: No - PULMONARY Hx Respiratory Disorders: No - NEUROLOGICAL Hx Neurological Disorder: No - HEENT Hx HEENT Problems: No - ENDOCRINE/METABOLIC Hx Endocrine Disorders: No - HEMATOLOGICAL/ONCOLOGICAL Hx Blood Disorders: Yes Hx Cancer: Yes (LEFT BREAST CANCER with mets) Other/Comment: Left breast CA stage 4 - INTEGUMENTARY Hx Dermatological Problems: Yes Other/Comment: RASH FROM BIOPSY ON LEFT BREAST - MUSCULOSKELETAL/RHEUMATOLOGICAL Hx Falls: No - GASTROINTESTINAL Hx Gastrointestinal Disorders: No - GENITOURINARY/GYNECOLOGICAL Hx Genitourinary Disorders: No - PSYCHIATRIC Hx Psychophysiologic Disorder: No Hx Substance Use: No - SURGICAL HISTORY Hx Breast Biopsy: Yes Other/Comment: SURGERY ON EAR. Port-a-Cath Placement right chest - ANESTHESIA Hx Anesthesia: Yes Hx Anesthesia Reactions: No Hx Malignant Hyperthermia: No Meds Home Medications: Home Medication List Medication Instructions Recorded Confirmed Type Docusate Sodium [Colace] 100 mg PO BID #20 capsule 03/27/18 Rx oxyCODONE [oxyCODONE Immediate 5 mg PO Q6 PRN #20 tab 03/27/18 Rx Release Tab] Allergies/Adverse Reactions: Allergies Allergy/AdvReac Type Severity Reaction Status Date / Time No Known Allergies Allergy Verified 03/25/18 21:26 - Medications Medications: Current Medications Anastrozole (Arimidex 1 Mg Tab) 1 mg PO DAILY [facility] Last Admin: 03/27/18 11:13 Dose: 1 mg Calcium/Vitamin D (Oscal-D 250 Mg-125 Units Tab) 2 tab PO DAILY [facility] Last Admin: 03/27/18 10:20 Dose: 2 tab Enoxaparin Sodium (Lovenox) 40 mg SC DAILY [facility] PRN Reason: Protocol Last Admin: 03/27/18 10:20 Dose: 40 mg Gabapentin (Neurontin) 100 mg PO TID PRN; Protocol PRN Reason: Pain, severe (8-10) Multivitamins/Minerals (Therapeutic-M Tab) 1 tab PO DAILY [facility] Last Admin: 03/27/18 10:20 Dose: 1 tab Oxycodone HCl (Oxycodone Immediate Release Tab) 5 mg PO Q6H PRN PRN Reason: Pain, moderate (4-7) Last Admin: 03/27/18 18:29 Dose: 5 mg Pantoprazole Sodium (Protonix Ec Tab) 40 mg PO 0600 [facility] Last Admin: 03/27/18 05:27 Dose: 40 mg Physical Exam - Head Exam Head Exam: ATRAUMATIC - Eye Exam Eye Exam: Normal appearance - ENT Exam ENT Exam: Mucous Membranes Dry - Respiratory Exam Respiratory Exam: NORMAL BREATHING PATTERN - Cardiovascular Exam Cardiovascular Exam: +S1, +S2 - GI/Abdominal Exam GI & Abdominal Exam: Normal Bowel Sounds - Extremities Exam Extremities exam: Positive for: normal inspection - Neurological Exam Neurological exam: Oriented x3 - Psychiatric Exam Psychiatric exam: Normal Affect, Normal Mood - Skin Skin Exam: Warm Results - Vital Signs Recent Vital Signs: Last Vital Signs Temp 98.6 F 03/27/18 15:09 Pulse 80 03/27/18 15:09 Resp 18 03/27/18 15:09 BP 115/73 03/27/18 15:09 Pulse Ox 100 03/27/18 15:09 - Labs Result Diagrams: 03/27/18 07:30 03/27/18 07:30 Labs: Laboratory Results - last 24 hr 03/27/18 03/27/18 03/27/18 07:30 07:30 07:30 WBC 7.4 RBC 3.04 L Hgb 8.2 L Hct 26.5 L MCV 87.2 MCH 27.0 MCHC 30.9 L RDW 16.0 H Plt Count 295 MPV 8.0 Gran % 53.0 Lymph % (Auto) 33.1 [place] % (Auto) 10.6 H Eos % (Auto) 2.8 Baso % (Auto) 0.5 Gran # 3.94 Lymph # (Auto) 2.5 [place] # (Auto) 0.8 H Eos # (Auto) 0.2 Baso # (Auto) 0.04 Sodium 140 Potassium 4.2 Chloride 102 Carbon Dioxide 29 Anion Gap 14 BUN 15 Creatinine 0.7 Est GFR ( Amer) > 60 Est GFR (Non-Af Amer) > 60 Random Glucose 76 Calcium 9.1 Phosphorus 4.7 H Magnesium 2.3 H Total Bilirubin 0.5 AST 103 H ALT 70 H Alkaline Phosphatase 257 H Total Protein 6.7 Albumin 3.6 Globulin 3.1 Albumin/Globulin Ratio 1.1 Assessment & Plan (1) Breast cancer Assessment and Plan: ER/DC positive, HER 2 negative imaging suggestive of lung, liver, splenic metastasis outpatient treatment Status: Acute (2) Anemia Assessment and Plan: anemia of chronic disease, bone metastasis Thank you for this interesting consult. Status: Acute
--- NOTE | 2018-03-28 07:01 | CP.PCM.DIS ---
Provider - Provider Date of Admission: 03/26/18 01:51 Attending physician: Jay Wooten MD Primary care physician: Meaghan Bob MD Consults: Heme/Onc: [place] Time Spent in preparation of Discharge (in minutes): 32 Hospital Course - Lab Results Lab Results: Most Recent Lab Values WBC 7.4 10^3/ul (4.5-11.0) 03/27/18 07:30 RBC 3.04 10^6/uL (3.5-6.1) L 03/27/18 07:30 Hgb 8.2 g/dL (12.0-16.0) L 03/27/18 07:30 Hct 26.5 % (36.0-48.0) L 03/27/18 07:30 MCV 87.2 fl (80.0-105.0) 03/27/18 07:30 MCH 27.0 pg (25.0-35.0) 03/27/18 07:30 MCHC 30.9 g/dl (31.0-37.0) L 03/27/18 07:30 RDW 16.0 % (11.5-14.5) H 03/27/18 07:30 Plt Count 295 10^3/uL (120.0-450.0) 03/27/18 07:30 MPV 8.0 fl (7.0-11.0) 03/27/18 07:30 Gran % 53.0 % (50.0-68.0) 03/27/18 07:30 Lymph % (Auto) 33.1 % (22.0-35.0) 03/27/18 07:30 [place] % (Auto) 10.6 % (1.0-6.0) H 03/27/18 07:30 Eos % (Auto) 2.8 % (1.5-5.0) 03/27/18 07:30 Baso % (Auto) 0.5 % (0.0-3.0) 03/27/18 07:30 Gran # 3.94 (1.4-6.5) 03/27/18 07:30 Lymph # (Auto) 2.5 (1.2-3.4) 03/27/18 07:30 [place] # (Auto) 0.8 (0.1-0.6) H 03/27/18 07:30 Eos # (Auto) 0.2 (0.0-0.7) 03/27/18 07:30 Baso # (Auto) 0.04 K/mm3 (0.0-2.0) 03/27/18 07:30 Neutrophils % (Manual) 55 % (50.0-70.0) 03/25/18 22:15 Band Neutrophils % 2 % (0-2) 03/25/18 22:15 Lymphocytes % (Manual) 33 % (22.0-35.0) 03/25/18 22:15 Monocytes % (Manual) 1 % (1.0-6.0) 03/25/18 22:15 Eosinophils % (Manual) 2 % (0.0-3.0) 03/25/18 22:15 Metamyelocytes % 3 % 03/25/18 22:15 Myelocytes % 4 % 03/25/18 22:15 Nucleated RBC % 1 % 03/25/18 22:15 Platelet Evaluation Normal (NORMAL) 03/25/18 22:15 Retic Count 2.01 % (0.5-1.5) H 03/26/18 07:00 Haptoglobin 340.2 mg/dL (30.0-200.0) H 03/26/18 07:00 PT 12.7 SECONDS (9.4-12.5) H 03/25/18 22:15 INR 1.11 (0.93-1.08) H 03/25/18 22:15 APTT 31.3 Seconds (25.1-36.5) 03/25/18 22:15 pO2 67 mm/Hg (30-55) H 03/26/18 08:00 VBG pH 7.39 (7.32-7.43) 03/26/18 08:00 VBG pCO2 46.0 (40-60) 03/26/18 08:00 VBG HCO3 27.8 mmol/l (21-28) 03/26/18 08:00 VBG Total CO2 29.2 mmol.L (22-28) H 03/26/18 08:00 VBG O2 Sat (Calc) 95.1 % (40-65) H 03/26/18 08:00 VBG Base Excess 2.2 mmol/L (0.0-2.0) H 03/26/18 08:00 VBG Potassium 4.2 mmol/L (3.6-5.2) 03/26/18 08:00 Sodium 138.0 mmol/L (132-148) 03/26/18 08:00 Chloride 105.0 mmol/L (98-107) 03/26/18 08:00 Glucose 94 mg/dl (65-105) 03/26/18 08:00 Lactate 2.0 mmol/L (0.7-2.1) 03/26/18 08:00 FiO2 21.0 % 03/26/18 08:00 Sodium 140 mmol/L (132-148) 03/27/18 07:30 Potassium 4.2 mmol/L (3.6-5.0) 03/27/18 07:30 Chloride 102 mmol/L (98-107) 03/27/18 07:30 Carbon Dioxide 29 mmol/L (21-33) 03/27/18 07:30 Anion Gap 14 (10-20) 03/27/18 07:30 BUN 15 mg/dL (7-21) 03/27/18 07:30 Creatinine 0.7 mg/dl (0.7-1.2) 03/27/18 07:30 Est GFR ( Amer) > 60 03/27/18 07:30 Est GFR (Non-Af Amer) > 60 03/27/18 07:30 Random Glucose 76 mg/dL (70-110) 03/27/18 07:30 Calcium 9.1 mg/dL (8.4-10.5) 03/27/18 07:30 Phosphorus 4.7 mg/dL (2.5-4.5) H 03/27/18 07:30 Magnesium 2.3 mg/dL (1.7-2.2) H 03/27/18 07:30 Iron 80 ug/dL (45-180) 03/26/18 07:00 TIBC 256 ug/dL (265-497) L 03/26/18 07:00 % Saturation 31 % (20-55) 03/26/18 07:00 Ferritin 1630.0 ng/mL 03/26/18 08:00 Total Bilirubin 0.5 mg/dL (0.2-1.3) 03/27/18 07:30 AST 103 U/L (14-36) H 03/27/18 07:30 ALT 70 U/L (7-56) H 03/27/18 07:30 Alkaline Phosphatase 257 U/L (38-126) H 03/27/18 07:30 Lactate Dehydrogenase 4163 U/L (333-699) H 03/25/18 22:50 Total Creatine Kinase 40 U/L (35-230) 03/25/18 22:50 Troponin I < 0.01 ng/mL 03/25/18 22:50 Total Protein 6.7 g/dL (5.8-8.3) 03/27/18 07:30 Albumin 3.6 g/dL (3.0-4.8) 03/27/18 07:30 Globulin 3.1 gm/dL 03/27/18 07:30 Albumin/Globulin Ratio 1.1 (1.1-1.8) 03/27/18 07:30 Lipase 83 U/L (23-300) 03/25/18 22:15 Vitamin B12 > 1000 pg/mL (239-931) H 03/26/18 08:00 Folate 15.0 ng/mL 03/26/18 08:00 Venous Blood Potassium 4.2 mmol/L (3.6-5.2) 03/26/18 08:00 Urine Color yellow (YELLOW) 03/26/18 02:02 Urine Appearance Clear (CLEAR) 03/26/18 02:02 Urine pH 6.0 (4.7-8.0) 03/26/18 02:02 Ur Specific [place] 1.010 (1.005-1.035) 03/26/18 02:02 Urine Protein Negative mg/dL (<30 mg/dL) 03/26/18 02:02 Urine Glucose (UA) Negative mg/dL (NEGATIVE) 03/26/18 02:02 Urine Ketones Negative mg/dL (NEGATIVE) 03/26/18 02:02 Urine Blood Negative (NEGATIVE) 03/26/18 02:02 Urine Nitrate Negative (NEGATIVE) 03/26/18 02:02 Urine Bilirubin Negative (NEGATIVE) 03/26/18 02:02 Urine Urobilinogen 0.2 E.U./dL (<1 E.U./dL) 03/26/18 02:02 Ur Leukocyte Esterase Negative [place]/uL (NEGATIVE) 03/26/18 02:02 Blood Type O NEGATIVE 03/26/18 08:00 Blood Type Confirm O NEGATIVE 03/26/18 09:15 Antibody Screen Negative 03/26/18 08:00 BBK History Checked No verified bt 03/26/18 08:00 - Hospital Course Hospital Course: History of Present Illness: Patient is a 47 year old female with a PMHx of Left Breast CA w/ bone metastasis (on hormone therapy) who presented with sharp, 10/10, constant abdominal pain that woke her up out of her sleep. Patient has been experiencing this pain for about 2 weeks and states it has been worsening. Patient took lemon water and green tea to help treat the pain which has been mildly successful. Hospital Course: Patient was admitted to Med/Surg. CT abd/pelvis showed numerous hepatic lesions , likely metastases. Splenic lesions, Diffuse mottled appearance of bone marrow with multiple sclerotic foci consistent with diffuse osseous metastases, multiple bilateral lung nodules. Dr Mak was consulted and following. While in the hospital abdominal pain/back pain improved. Elevated LFTs remained stable. On day of discharge, patient was doing well. Patient was tolerating diet and ambulating. Patient advised will need to follow up with Dr Mak outpatient for further management. Patient also to follow up with PMD. Discharge Medications : Oxycodone 5mg PO Q6H Colace 100mg PO BID Discharge Diagnosis: Abdominal pain 2/2 progression of breast cancer metastasis Discharge Exam - Additional Findings Additional findings: - Constitutional Appears: No Acute Distress - Head Exam Head Exam: ATRAUMATIC, NORMAL INSPECTION, NORMOCEPHALIC - Eye Exam Eye Exam: EOMI, Normal appearance - ENT Exam ENT Exam: Mucous Membranes Moist - Neck Exam Neck exam: Positive for: Normal Inspection - Respiratory Exam Respiratory Exam: Clear to Auscultation Bilateral, NORMAL BREATHING PATTERN. absent: Rales, Rhonchi, Wheezes - Cardiovascular Exam Cardiovascular Exam: RRR, +S1, +S2 - GI/Abdominal Exam GI & Abdominal Exam: Normal Bowel Sounds, Soft, No Tenderness absent: Distended, Guarding, Organomegaly, Rebound, Rigid - Extremities Exam Extremities exam: Positive for: normal capillary refill, normal inspection. Negative for: pedal edema - Neurological Exam Neurological exam: Alert, Oriented x3 - Psychiatric Exam Psychiatric exam: Normal Affect, Normal Mood - Skin Skin Exam: Dry, Intact, Normal Color, Warm Discharge Plan - Discharge Medications Prescriptions: Docusate Sodium [Colace] 100 mg PO BID #20 capsule oxyCODONE [oxyCODONE Immediate Release Tab] 5 mg PO Q6 PRN #20 tab PRN Reason: Pain, Severe (8-10) - Follow Up Plan Condition: STABLE Disposition: HOME/ ROUTINE Instructions: Anemia of Chronic Disease, Managing Loss of Appetite and Weight Loss With Cancer, Alkaline Phosphatase Test, Breast Cancer in Women (DC) Additional Instructions: 1. Patient is clear for discharge home 2. She had been prescribed oxycodone for pain as needed, please take with stool softener 3. Please follow up with Heme/Onc as scheduled 4. Please follow up with PMD within 1 week 5. If having worsening symptoms, please return to nearest ER Referrals: Meaghan Bob MD [Primary Care Provider] -
== END 2018-03-27 22:14 | disposition home or self-care (01) | DRG 203 ==
LOC: ED 20:27 → ERH 03-26 01:51 → 5RSO 03-26 03:43
PROVIDERS: ADMIT Hospitalist; ATTEND Internal Medicine
DX: C78.7 Secondary malignant neoplasm of liver and intrahepatic bile duct (principal); C79.51 Secondary malignant neoplasm of bone; C50.912 Malignant neoplasm of unspecified site of left female breast; D63.8 Anemia in other chronic diseases classified elsewhere; D64.81 Anemia due to antineoplastic chemotherapy; R91.8 Other nonspecific abnormal finding of lung field; Z79.811 Long term (current) use of aromatase inhibitors; Z17.0 Estrogen receptor positive status [ER+]

== ENCOUNTER 2018-04-17 15:27 | Inpatient (IN) | payer OTHER ==
[2018-04-17 15:28] VITALS: BMI 26.2
[2018-04-17] MEDS ORDERED: Sodium Chloride 0.9% 1,000 ML IV STA (15:55)
--- NOTE | 2018-04-17 15:59 | ED PDOC ---
Arrival/HPI - General Chief Complaint: Fever Time Seen by Provider: 04/17/18 15:28 Historian: Patient - History of Present Illness Narrative History of Present Illness (Text): 04/17/18 15:56 This is a 47 year old female with Left breast cancer and METS to the bone who presents to the Emergency department complaining of "blood infection". Patient stated she was reviewing blood test with her PMD this morning. She stated PMD told her to go to Emergency department due to Neutropenia, and bandemia. Patient admits feeling low grade fever, chill, fatigue x 5 days. Patient noted occasional cough, and shortness of breath. Patient came to [place] [facility] since it is close to home. Patient denies other somatic complains. Heme/onc: Dr. Mak Time/Duration: Other (see hpi) Symptom Onset: Gradual, Other (denies Pain) Past Medical History - Provider Review Nursing Documentation Reviewed: Yes - Infectious Disease Hx of Infectious Diseases: None - Cardiac Hx Cardiac Disorders: No - Pulmonary Hx Respiratory Disorders: No - Neurological Hx Neurological Disorder: No - HEENT Hx HEENT Disorder: No - Endocrine/Metabolic Hx Endocrine Disorders: No - Hematological/Oncological Hx Blood Disorders: Yes Hx Cancer: Yes (LEFT BREAST CANCER with mets) Other/Comment: Left breast CA stage 4 - Integumentary Hx Dermatological Disorder: Yes Other/Comment: RASH FROM BIOPSY ON LEFT BREAST - Musculoskeletal/Rheumatological Hx Falls: No - Gastrointestinal Hx Gastrointestinal Disorders: No - Genitourinary/Gynecological Hx Genitourinary Disorders: No - Psychiatric Hx Psychophysiologic Disorder: No Hx Substance Use: No - Surgical History Hx Breast Biopsy: Yes Other/Comment: SURGERY ON EAR. Port-a-Cath Placement right chest - Anesthesia Hx Anesthesia: Yes Hx Anesthesia Reactions: No Hx Malignant Hyperthermia: No Family/Social History - Physician Review Nursing Documentation Reviewed: Yes Family/Social History: Other (noncontributory) Smoking Status: Never Smoked Hx Alcohol Use: No Hx Substance Use: No Allergies/Home Meds Allergies/Adverse Reactions: Allergies No Known Allergies Allergy (Verified 04/17/18 15:50) Home Medications: Home Meds Medication Instructions Recorded Confirmed Calcium Carbonate/Vitamin D3 1 each PO DAILY 09/10/16 04/18/18 [Calcium 500-Vit D3 400 Tablet] Folic Acid/Mv,Iron,Min [One Daily 1 each PO DAILY 09/19/17 04/18/18 For Women Tablet] Ibuprofen [Motrin Tab] 250 mg PO Q3 PRN 10/14/17 04/18/18 Letrozole [Femara] 2.5 mg PO DAILY 04/18/18 04/18/18 Palbociclib [Ibrance] 125 mg PO DAILY 04/18/18 04/18/18 Review of Systems - Review of Systems Constitutional: Fatigue, Fevers. absent: Weight Change, Night Sweats Eyes: Normal. absent: Photophobia ENT: Normal. absent: Sore Throat Respiratory: SOB, Cough. absent: Sputum, Wheezing Cardiovascular: Normal. absent: Chest Pain, Palpitations Gastrointestinal: Normal. absent: Abdominal Pain, Nausea, Vomiting Genitourinary Female: Normal. absent: Dysuria, Frequency, Hematuria, Vaginal Bleeding, Vaginal Discharge Musculoskeletal: Myalgias. absent: Back Pain, Neck Pain Skin: Normal. absent: Rash Neurological: Normal. absent: Headache, Focal Weakness, Gait Changes, Speech Changes, Facial Droop, Disequilibrium, Seizure Endocrine: Normal Hemo/Lymphatic: Normal Psychiatric: Normal. absent: Depression, Suicidal Ideation Physical Exam Vital Signs Temp Pulse Resp BP Pulse Ox 04/17/18 18:42 99 H 16 121/79 100 04/17/18 17:21 103 H 18 95/52 L 100 04/17/18 16:26 99.3 F 04/17/18 15:55 99.6 F 101 H 18 80/45 L 100 Temperature: Afebrile Blood Pressure: Normal Pulse: Regular Respiratory Rate: Normal Appearance: Positive for: Well-Appearing, Non-Toxic, Comfortable Pain Distress: None Mental Status: Positive for: Alert and Oriented X 3 - Systems Exam Head: Present: Atraumatic, Normocephalic Pupils: Present: PERRL Extroacular Muscles: Present: EOMI Conjunctiva: Present: Normal Mouth: Present: Moist Mucous Membranes, Normal Lips, Normal Tounge. No: Drooling Pharnyx: Present: Normal. No: ERYTHEMA, EXUDATE, TONSILS ENLARGED Nose (External): Present: Atraumatic Nose (Internal): Present: Normal Inspection Neck: Present: Normal Range of Motion, Trachea Midline. No: Meningeal Signs, MIDLINE TENDERNESS, Paraspinal Tenderness Respiratory/Chest: Present: Clear to Auscultation, Good Air Exchange. No: Respiratory Distress, Accessory Muscle Use, Wheezes, Retracting, Rhonchi, Tachypneic Cardiovascular: Present: Regular Rate and Rhythm, Normal S1, S2. No: Murmurs Abdomen: No: Tenderness, Distention, Peritoneal Signs Back: Present: Normal Inspection. No: CVA Tenderness Upper Extremity: Present: Normal Inspection, Normal ROM, NORMAL PULSES, Neurovascularly Intact, Capillary Refill < 2s. No: Cyanosis, Edema Lower Extremity: Present: Normal Inspection, Normal ROM, Neurovascularly Intact , Capillary Refill < 2 s. No: Edema, CALF TENDERNESS Neurological: Present: GCS=15, CN II-XII Intact, Speech Normal, Motor Func Grossly Intact, Normal Sensory Function, Normal Cerebellar Funct, Gait Normal, Memory Normal Skin: Present: Warm, Dry, Normal Color. No: Rashes Psychiatric: Present: Alert, Oriented x 3, Normal Insight, Normal Concentration Medical Decision Making ED Course and Treatment: 04/17/18 18:[address] Wootne regarding patient history, symptoms, and Physical exam. I reviewed labs, CXR. He agreed with plan for admission. 04/17/18 18:01 Patient agreed to be admitted in the hospital. Reassessment Condition: Re-examined - Lab Interpretations Microbiology Results: Microbiology Results 04/17/18 17:40 Blood Blood Culture - Preliminary NO GROWTH AFTER 48 HOURS 04/17/18 17:04 Blood Blood Culture - Preliminary NO GROWTH AFTER 48 HOURS 04/17/18 16:35 Urine Urine Culture - Final No Growth (<1,000 CFU/ML) Lab Results: 04/17/18 17:04 04/17/18 17:04 Lab Results 04/17/18 17:36: Influenza Typ A,B (EIA) Negative for flu a/b 04/17/18 17:04: Sodium 139, Chloride 102, Potassium 4.4, Carbon Dioxide 24, Anion Gap 18, BUN 8, Creatinine 0.7, Est GFR ( Amer) > 60, Est GFR (Non- Af Amer) > 60, Random Glucose 88, Calcium 8.7, Phosphorus 3.4, Magnesium 2.2, Total Bilirubin 1.5 H, AST 136 H, ALT 86 H, Alkaline Phosphatase 297 H, Total Protein 6.7, Albumin 3.7, Globulin 3.0, Albumin/Globulin Ratio 1.2 04/17/18 17:04: pO2 48, VBG pH 7.38, VBG pCO2 42.0, VBG HCO3 24.8, VBG Total CO2 26.1, VBG O2 Sat (Calc) 85.0 H, VBG Base Excess -0.4 L, VBG Potassium 5.5 H , Sodium 134.0, Chloride 104.0, Glucose 91, Lactate 1.7, FiO2 21.0, Venous Blood Potassium 5.5 H 04/17/18 17:04: PT 14.2 H, INR 1.24 H, APTT 32.3 04/17/18 17:04: WBC 10.0 D, RBC 3.04 L, Hgb 8.5 L, Hct 27.2 L, MCV 89.5, MCH 28.0, MCHC 31.3, RDW 19.5 H, Plt Count 309, MPV 8.6, Gran % 65.6, Lymph % (Auto ) 23.4, [place] % (Auto) 9.2 H, Eos % (Auto) 1.2 L, Baso % (Auto) 0.6, Gran # 6.59 H, Lymph # (Auto) 2.4, [place] # (Auto) 0.9 H, Eos # (Auto) 0.1, Baso # (Auto) 0.06 , Neutrophils % (Manual) 65, Band Neutrophils % 2, Lymphocytes % (Manual) 24, Monocytes % (Manual) 5, Basophils % (Manual) 1, Metamyelocytes % 2, Myelocytes % 1, Nucleated RBC % 1, Polychromasia Slight, Anisocytosis (manual) Slight 04/17/18 16:35: Urine Color Colorless, Urine Appearance Clear, Urine pH 6.0, Ur Specific [place] 1.010, Urine Protein Negative, Urine Glucose (UA) Negative, Urine Ketones Negative, Urine Blood Negative, Urine Nitrate Negative, Urine Bilirubin Negative, Urine Urobilinogen 0.2, Ur Leukocyte Esterase Negative I have reviewed the lab results: Yes Interpretation: Abnormal lab values (mild anemia) - RAD Interpretation Narrative RAD Interpretations (Text): 04/17/18 18:03 Chest X-ray: nad Radiology Orders: 04/17/18 15:53 CHEST PORTABLE [RAD] Stat - EKG Interpretation Interpreted by ED Physician: Yes (NSR @ [address] changes) Type: 12 lead EKG Comparison: No previous EKG avail. - Medication Orders Current Medication Orders: Discontinued Medications Acetaminophen (Tylenol 325mg Tab) 650 mg PO Q6H PRN PRN Reason: Fever >100.4 F Acetaminophen (Tylenol 325mg Tab) 650 mg PO STAT STA Stop: 04/19/18 15:07 Last Admin: 04/19/18 17:54 Dose: Not Given Non-Admin Reason: Patient Refused Docusate Sodium (Colace) 100 mg PO TID [facility] Last Admin: 04/19/18 13:19 Dose: Not Given Non-Admin Reason: Patient Refused Ferrous Sulfate (Feosol) 324 mg PO TID [facility] Last Admin: 04/19/18 13:17 Dose: 324 mg Folic Acid (Folic Acid) 1 mg PO DAILY [facility] Last Admin: 04/19/18 09:23 Dose: 1 mg Heparin Sodium (Porcine) (Heparin) 5,000 units SC Q8 URSZULA PRN Reason: Protocol Last Admin: 04/19/18 13:17 Dose: 5,000 units Subcutaneous Administrations Document 04/19/18 13:17 EP (Rec: 04/19/18 13:18 EP [id number]) Charges for Administration # of Subcutaneous Administrations 1 Home Med (Home Med) 1 unit PO ONCE ONE Stop: 04/18/18 22:28 Last Admin: 04/18/18 22:48 Dose: 1 unit Sodium Chloride (Sodium Chloride 0.9%) 1,000 mls @ 999 mls/hr IV .Q1H1M STA Stop: 04/17/18 16:55 Last Admin: 04/17/18 16:45 Dose: 999 mls/hr eMAR Start Stop Document 04/17/18 16:45 ARIAN (Rec: 04/17/18 16:45 ARIAN [id number]) Intravenous Solution Start Date 04/17/18 Start Time 16:45 End Date 04/17/18 End time 17:45 Total Infusion Time 60 Sodium Chloride (Sodium Chloride 0.9%) 1,000 mls @ 100 mls/hr IV .Q10H URSZULA Sodium Chloride (Sodium Chloride 0.9%) 1,000 mls @ 125 mls/hr IV .Q8H [facility] Last Admin: 04/18/18 16:55 Dose: 125 mls/hr eMAR Start Stop Document 04/18/18 16:55 MJO (Rec: 04/18/18 16:55 MJO [id number]) Intravenous Solution Start Date 04/18/18 Start Time 16:55 Ceftriaxone Sodium (Rocephin 1 Gram Ivpb) 1 gm in 100 mls @ 100 mls/hr IVPB ONCE ONE PRN Reason: Protocol Stop: 04/17/18 21:42 Last Admin: 04/17/18 20:53 Dose: 100 mls/hr eMAR Start Stop Document 04/17/18 20:53 [employer]PLANT SURGEON (Rec: 04/17/18 20:53 TRANSPLANT SURGEON [id number]) Intravenous Solution Start Date 04/17/18 Start Time 20:53 Vancomycin HCl (Vancomycin 1gm) 1 gm in 250 mls @ 167 mls/hr IVPB DAILY URSZULA PRN Reason: Protocol Last Admin: 04/18/18 10:27 Dose: 167 mls/hr eMAR Start Stop Document 04/18/18 10:27 MJO (Rec: 04/18/18 10:28 [facility] [id number]) Intravenous Solution Start Date 04/18/18 Start Time 10:27 End Date 04/18/18 End time 12:07 Total Infusion Time 100 Piperacillin Sod/Tazobactam Sod (Zosyn 3.375 In Ns 100ml) 100 mls @ 200 mls/hr IVPB Q6 URSZULA PRN Reason: Protocol Stop: 04/18/18 18:29 Last Admin: 04/18/18 17:00 Dose: 200 mls/hr eMAR Start Stop Document 04/18/18 17:00 MJO (Rec: 04/18/18 17:00 [facility] [id number]) Intravenous Solution Start Date 04/18/18 Start Time 17:00 End Date 04/18/18 End time 18:00 Total Infusion Time 60 Piperacillin Sod/Tazobactam Sod (Zosyn 3.375 In Ns 100ml) 100 mls @ 200 mls/hr IVPB Q6 URSZULA PRN Reason: Protocol Stop: 04/28/18 00:01 Last Admin: 04/19/18 12:17 Dose: 200 mls/hr eMAR Start Stop Document 04/19/18 12:17 EP (Rec: 04/19/18 12:17 EP [id number]) Intravenous Solution Start Date 04/19/18 Start Time 12:17 End Date 04/19/18 End time 12:47 Total Infusion Time 30 Ibuprofen (Motrin Tab) 400 mg PO Q8H PRN PRN Reason: Temperature Last Admin: 04/18/18 21:38 Dose: 400 mg MAR Pain/Vitals Document 04/18/18 21:38 [facility] (Rec: 04/18/18 21:38 [id number]) Pain Reassessment Is This A Pain ReAssessment? No Sleep Is patient sleeping during reassessment? No Location Pain Location Body Site headache Multivitamins/Minerals (Therapeutic-M Tab) 1 tab PO 0800 URSZULA Last Admin: 04/19/18 09:22 Dose: 1 tab Oxycodone HCl (Oxycodone Immediate Release Tab) 5 mg PO STAT STA Stop: 04/17/18 19:01 Oxycodone HCl (Oxycodone Immediate Release Tab) 5 mg PO Q6H PRN PRN Reason: Pain, moderate (4-7) Disposition/Present on Arrival - Present on Arrival Any Indicators Present on Arrival: No History of DVT/PE: No History of Uncontrolled Diabetes: No Urinary Catheter: No History of Decub. Ulcer: No History Surgical Site Infection Following: None - Disposition Have Diagnosis and Disposition been Completed?: Yes Diagnosis: Immunosuppressive-induced fever, SIRS (systemic inflammatory response syndrome) Disposition: HOSPITALIZED Disposition Time: 18:05 Patient Plan: Admission Condition: STABLE
[2018-04-17 16:45] LABS: URINE BILIRUBIN NEGATIVE (NEGATIVE); URINE BLOOD NEGATIVE (NEGATIVE); URINE GLUCOSE (UA) NEGATIVE (NEGATIVE); URINE LEUKOCYTE ESTERASE NEGATIVE Leu/uL (NEGATIVE); URINE PROTEIN NEGATIVE mg/dL (<30 mg/dL); URINE UROBILINOGEN 0.2 E.U./dL (<1 E.U./dL)
[2018-04-17 16:46] LABS: URINE APPEARANCE CLEAR (CLEAR); URINE COLOR COLORLESS (YELLOW)
[2018-04-17 17:08] LABS: VENOUS BLOOD GAS BASE EXCESS -0.4 mmol/L (0.0-2.0); VENOUS BLOOD GAS PO2 48 mm/Hg (30-55); VENOUS BLOOD PH 7.38 (7.32-7.43)
[2018-04-17 17:10] LABS: BASO # 0.06 K/mm3 (0.0-2.0); BASO % 0.6 % (0.0-3.0); EOS # 0.1 (0.0-0.7); EOS % 1.2 % (1.5-5.0); GRAN # 6.59 (1.4-6.5); GRAN % 65.6 % (50.0-68.0); HEMOGLOBIN 8.5 g/dL (12.0-16.0); LYMPH # 2.4 (1.2-3.4); LYMPH % 23.4 % (22.0-35.0); MEAN CELL VOLUME 89.5 fl (80.0-105.0); MEAN CORPUSCULAR HGB CONC 31.3 g/dl (31.0-37.0); MEAN PLATELET VOLUME 8.6 fl (7.0-11.0); MONO # 0.9 (0.1-0.6); MONO % 9.2 % (1.0-6.0); PLATELET COUNT 309 10^3/uL (120.0-450.0); RBC 3.04 10^6/uL (3.5-6.1); RED CELL DISTRIBUTION WIDTH 19.5 % (11.5-14.5)
[2018-04-17 17:19] LABS: INR 1.24 (0.93-1.08); PROTHROMBIN TIME 14.2 SECONDS (9.4-12.5)
[2018-04-17 17:20] LABS: PARTIAL THROMBOPLASTIN TIME 32.3 Seconds (25.1-36.5)
--- NOTE | 2018-04-17 17:21 | RAD ---
HISTORY: Admission COMPARISON: 03/25/2018 FINDINGS: LUNGS: No active pulmonary disease. PLEURA: No significant pleural effusion identified, no pneumothorax apparent. CARDIOVASCULAR: No radiographic findings to suggest acute or significant cardiovascular disease. Venous access catheter in stable, satisfactory position. OSSEOUS STRUCTURES: No significant abnormalities. VISUALIZED UPPER ABDOMEN: Normal. OTHER FINDINGS: None. IMPRESSION: No active disease. No significant interval change compared to the prior examination(s).
[2018-04-17 17:34] LABS: BAND 2 % (0-2); BASOPHIL 1 % (0.0-1.0); LYMPHOCYTE 24 % (22.0-35.0); METAMYELOCYTE 2 %; MONOCYTE 5 % (1.0-6.0); MYELOCYTE 1 %; NEUTROPHIL 65 % (50.0-70.0); NUCLEATED RED BLOOD CELL 1 %
[2018-04-17 17:35] LABS: ANISOCYTOSIS SLIGHT; POLYCHROMASIA SLIGHT
[2018-04-17 17:38] LABS: ALB/GLOB RATIO 1.2 (1.1-1.8); ALBUMIN 3.7 g/dL (3.0-4.8); ALT/SGPT 86 U/L (7-56); AST/SGOT 136 U/L (14-36); BLOOD UREA NITROGEN 8 mg/dL (7-21); CALCIUM 8.7 mg/dL (8.4-10.5); GFR AFRICAN-AMERICAN > 60; GFR NON-AFRICAN AMERICAN > 60
--- NOTE | 2018-04-17 18:58 | CP.PCM.HP ---
<Romario Lyon - Last Filed: 04/17/18 19:30> History of Present Illness - History of Present Illness History of Present Illness: HPI: Patient is a 47F with a PMH of metastatic breast cancer with mets to the bone, liver and lung who comes to the ED after being sent from [facility]. Patient had been complaining of fevers, chills headache and generalized malaise so she had blood done work at [facility] on the 03 of april. At that time the patient had a Bandemia of 13. She has since continued to feel feverish and have shaking chills as well as shoulder pain and neck pain but does not show any meningeal signs. She denies any other symptoms such as chest pain, SOB, nausea, vomiting, diarrhea. No cough. I spoke with Dr. Mak. He says that they are getting ready to try new Rx for the cancer when this week. He is ok with the plan to draw cultures with no further inpatient management from him at this time. PMH: metastatic breast CA PSH: port FH: two paternal relatives with breast ca SH: Denies smoking, drinking, drug use All: None Present on Admission - Present on Admission Any Indicators Present on Admission: No Review of Systems - Review of Systems Review of Systems: per HPI Past Patient History - Infectious Disease Hx of Infectious Diseases: None - Past Medical History & Family History Past Medical History?: Yes - Past Social History Smoking Status: Never Smoked - CARDIAC Hx Cardiac Disorders: No - PULMONARY Hx Respiratory Disorders: No - NEUROLOGICAL Hx Neurological Disorder: No - HEENT Hx HEENT Problems: No - ENDOCRINE/METABOLIC Hx Endocrine Disorders: No - HEMATOLOGICAL/ONCOLOGICAL Hx Blood Disorders: Yes Hx Cancer: Yes (LEFT BREAST CANCER with mets) Other/Comment: Left breast CA stage 4 - INTEGUMENTARY Hx Dermatological Problems: Yes Other/Comment: RASH FROM BIOPSY ON LEFT BREAST - MUSCULOSKELETAL/RHEUMATOLOGICAL Hx Falls: No - GASTROINTESTINAL Hx Gastrointestinal Disorders: No - GENITOURINARY/GYNECOLOGICAL Hx Genitourinary Disorders: No - PSYCHIATRIC Hx Psychophysiologic Disorder: No Hx Substance Use: No - SURGICAL HISTORY Hx Breast Biopsy: Yes Other/Comment: SURGERY ON EAR. Port-a-Cath Placement right chest - ANESTHESIA Hx Anesthesia: Yes Hx Anesthesia Reactions: No Hx Malignant Hyperthermia: No Meds Home Medications: Home Medication List Medication Instructions Recorded Confirmed Type Amoxicillin/Clavulanate [Augmentin 1 tab PO BID 7 Days tab 05/23/18 Rx 875 MG-125 MG] Saccharomyces Boulardi [Florastor] 250 mg PO BID 37 Days cap 04/19/18 Rx Allergies/Adverse Reactions: Allergies Allergy/AdvReac Type Severity Reaction Status Date / Time No Known Allergies Allergy Verified 04/17/18 15:50 Physical Exam - Constitutional Appears: Well - Head Exam Head Exam: ATRAUMATIC, NORMAL INSPECTION, NORMOCEPHALIC - Eye Exam Eye Exam: EOMI, Normal appearance, PERRL Pupil Exam: NORMAL ACCOMODATION, PERRL - ENT Exam ENT Exam: Mucous Membranes Moist, Normal Exam - Neck Exam Neck exam: Positive for: Normal Inspection - Respiratory Exam Respiratory Exam: Clear to Auscultation Bilateral, NORMAL BREATHING PATTERN - Cardiovascular Exam Cardiovascular Exam: REGULAR RHYTHM - GI/Abdominal Exam GI & Abdominal Exam: Normal Bowel Sounds, Soft. absent: Distended, Tenderness - Extremities Exam Extremities exam: Positive for: normal inspection - Back Exam Back exam: NORMAL INSPECTION - Neurological Exam Neurological exam: Alert, CN II-XII Intact, Normal Gait, Oriented x3, Reflexes Normal - Psychiatric Exam Psychiatric exam: Normal Affect, Normal Mood - Skin Skin Exam: Dry, Intact, Normal Color, Warm Results - Vital Signs Recent Vital Signs: Last Vital Signs Temp 99.3 F 04/17/18 16:26 Pulse 99 H 04/17/18 18:42 Resp 16 04/17/18 18:42 BP 121/79 04/17/18 18:42 Pulse Ox 100 04/17/18 18:42 - Labs Result Diagrams: 04/17/18 17:04 04/17/18 17:04 Assessment & Plan (1) Malaise and fatigue Assessment and Plan: Most likely viral but given that she is immunocompromised and tachy will start abx while waiting for cultures Rocephin 1g daily f/u blood and urine cultures NS @ 125 tylenol PRN for the fever Status: Acute Priority: High (2) Breast cancer metastasized to bone Assessment and Plan: Onc is Dr. Mak. I spoke with Dr. Mak. He says that they are getting ready to try new Rx for the cancer when this week. He is ok with the plan to draw cultures with no further inpatient management from him at this time. Oxy 5 Q6 PRN for pain Status: Chronic Priority: High (3) Prophylactic measure Assessment and Plan: Heparin SC Q8H SCD No GI PPX indicated at this time Status: Acute <Scot Castano N - Last Filed: 04/18/18 04:44> Results - Vital Signs Recent Vital Signs: Last Vital Signs Temp 97.9 F 04/18/18 00:00 Pulse 100 H 04/17/18 22:30 Resp 18 04/17/18 22:30 BP 120/78 04/17/18 22:30 Pulse Ox 100 04/17/18 22:30 - Labs Result Diagrams: 04/17/18 17:04 04/17/18 17:04 <Luis Castano B - Last Filed: 04/20/18 13:01> Results - Vital Signs Recent Vital Signs: Last Vital Signs Temp 98.1 F 04/18/18 14:00 Pulse 105 H 04/18/18 14:00 Resp 20 04/18/18 14:00 BP 127/77 04/18/18 14:00 Pulse Ox 98 04/18/18 14:00 - Labs Result Diagrams: 04/19/18 10:25 04/19/18 10:25 Labs: Laboratory Results - last 24 hr 04/18/18 04/18/18 06:15 06:15 WBC 8.4 RBC 2.85 L Hgb 7.8 L Hct 25.7 L MCV 90.2 MCH 27.4 MCHC 30.4 L RDW 19.4 H Plt Count 248 MPV 8.1 Gran % 60.7 Lymph % (Auto) 28.4 [place] % (Auto) 9.3 H Eos % (Auto) 1.1 L Baso % (Auto) 0.5 Gran # 5.08 Lymph # (Auto) 2.4 [place] # (Auto) 0.8 H Eos # (Auto) 0.1 Baso # (Auto) 0.04 Sodium 142 Potassium 4.1 Chloride 107 Carbon Dioxide 25 Anion Gap 15 BUN 6 L Creatinine 0.7 Est GFR ( Amer) > 60 Est GFR (Non-Af Amer) > 60 Random Glucose 100 Calcium 8.3 L Phosphorus 3.8 Magnesium 2.2 Total Bilirubin 0.6 AST 116 H ALT 64 H Alkaline Phosphatase 248 H Total Protein 6.5 Albumin 3.3 Globulin 3.2 Albumin/Globulin Ratio 1.0 L Attending/Attestation - Attestation I have personally seen and examined this patient.: Yes I have fully participated in the care of the patient.: Yes I have reviewed all pertinent clinical information: Yes Notes (Text): I have seen and examined the patient at bedside. Agree with the above note with the following additions/ exceptions: Briefly this is 47 F h/o stage 4 breast cancer (ER/MS positive, HER2 negative), with metastasis to bone, liver, lung and spleen on hormonal therapy, admitted last night with malaise, fatigue, chills and fever. Tmax was 100.5. Blood, urine culture pending. Procal pending. Will continue broad spectrum IV antibiotics for now. ID consult pending. Upon discharge patient will follow up with Dr Mak.
[2018-04-17] MEDS ORDERED: oxyCODONE 5 mg Immediate Release Tab PO PRN (19:00)
[2018-04-17] MEDS ORDERED: oxyCODONE 5 mg Immediate Release Tab PO STA (19:00)
[2018-04-17] MEDS ORDERED: Sodium Chloride 0.9% 1,000 ML IV SCH (19:30)
[2018-04-17] MEDS: Sodium Chloride 0.9% 1,000 ML IV SCH (20:07)
[2018-04-17] MEDS ORDERED: cefTRIAXone 1 gm 1 GM/100 ML BAG IVPB ONE (20:43)
[2018-04-18 06:55] LABS: BASO # 0.04 K/mm3 (0.0-2.0); BASO % 0.5 % (0.0-3.0); EOS # 0.1 (0.0-0.7); EOS % 1.1 % (1.5-5.0); GRAN # 5.08 (1.4-6.5); GRAN % 60.7 % (50.0-68.0); HEMOGLOBIN 7.8 g/dL (12.0-16.0); LYMPH # 2.4 (1.2-3.4); LYMPH % 28.4 % (22.0-35.0); MEAN CELL VOLUME 90.2 fl (80.0-105.0); MEAN CORPUSCULAR HEMOGLOBIN 27.4 pg (25.0-35.0); MEAN CORPUSCULAR HGB CONC 30.4 g/dl (31.0-37.0); MEAN PLATELET VOLUME 8.1 fl (7.0-11.0); MONO # 0.8 (0.1-0.6); MONO % 9.3 % (1.0-6.0); RBC 2.85 10^6/uL (3.5-6.1); RED CELL DISTRIBUTION WIDTH 19.4 % (11.5-14.5); WHITE BLOOD COUNT 8.4 10^3/ul (4.5-11.0)
[2018-04-18 07:35] LABS: ALBUMIN 3.3 g/dL (3.0-4.8); ALT/SGPT 64 U/L (7-56); AST/SGOT 116 U/L (14-36); BLOOD UREA NITROGEN 6 mg/dL (7-21); CALCIUM 8.3 mg/dL (8.4-10.5); GFR AFRICAN-AMERICAN > 60; GFR NON-AFRICAN AMERICAN > 60
--- NOTE | 2018-04-18 08:07 | CARD ---
APPROVED REPORT EKG Measurement Heart [id number] CT [id number] <Conclusion> Normal sinus rhythm Low voltage QRS Borderline ECG
[2018-04-18] MEDS ORDERED: Vancomycin 1gm in NS 250ml 1 GM/250 ML BAG IVPB SCH (10:00)
[2018-04-18] MEDS ORDERED: cefTRIAXone 1 gm 1 GM/100 ML BAG IVPB SCH (10:00)
[2018-04-18] MEDS: Multivitamin With Minerals Tab PO SCH (10:29)
--- NOTE | 2018-04-18 10:40 | CP.PCM.PN ---
<Romario Lyon - Last Filed: 04/18/18 10:37> Subjective - Date & Time of Evaluation Date of Evaluation: 04/18/18 Time of Evaluation: 10:37 - Subjective Subjective: Patient seen and examined at bedside. Complaining of fever and some chills but states overall she feels better than yesterday. Denies any cough, abdominal pain , diarrhea, vomiting or urinary symptoms. States last time they used the port was at [facility] and it gets flushed every 4 months. It is not painful and does not have any evidence of infection overlying. Will draw blood cultures from it to make sure. Did have a fever overnight so chose broader spectrum antibiotics, ordered procal and will have ID see the patient. Objective - Vital Signs/Intake and Output Vital Signs (last 24 hours): Temp Pulse Resp BP Pulse Ox 98.4 F 84 18 105/71 100 04/18/18 06:00 04/18/18 06:00 04/18/18 06:00 04/18/18 06:00 04/18/18 06:00 Intake and Output: 04/18/18 04/18/18 06:59 18:59 Intake Total 180 Balance 180 - Medications Medications: Current Medications Acetaminophen (Tylenol 325mg Tab) 650 mg PO Q6H PRN PRN Reason: Fever >100.4 F Docusate Sodium (Colace) 100 mg PO TID [facility] Last Admin: 04/18/18 10:29 Dose: 100 mg Ferrous Sulfate (Feosol) 324 mg PO TID [facility] Last Admin: 04/18/18 10:29 Dose: 324 mg Folic Acid (Folic Acid) 1 mg PO DAILY [facility] Last Admin: 04/18/18 10:29 Dose: 1 mg Heparin Sodium (Porcine) (Heparin) 5,000 units SC Q8 [facility] PRN Reason: Protocol Last Admin: 04/18/18 05:57 Dose: 5,000 units Sodium Chloride (Sodium Chloride 0.9%) 1,000 mls @ 125 mls/hr IV .Q8H [facility] Last Admin: 04/17/18 20:07 Dose: 125 mls/hr Vancomycin HCl (Vancomycin 1gm) 1 gm in 250 mls @ 167 mls/hr IVPB DAILY [facility] PRN Reason: Protocol Last Admin: 04/18/18 10:27 Dose: 167 mls/hr Piperacillin Sod/Tazobactam Sod (Zosyn 3.375 In Ns 100ml) 100 mls @ 200 mls/hr IVPB Q6 [facility] PRN Reason: Protocol Stop: 04/18/18 18:29 Ibuprofen (Motrin Tab) 400 mg PO Q8H PRN PRN Reason: Temperature Last Admin: 04/18/18 10:28 Dose: 400 mg Multivitamins/Minerals (Therapeutic-M Tab) 1 tab PO 0800 [facility] Last Admin: 04/18/18 10:29 Dose: 1 tab Oxycodone HCl (Oxycodone Immediate Release Tab) 5 mg PO Q6H PRN PRN Reason: Pain, moderate (4-7) - Labs Labs: 04/18/18 06:15 04/18/18 06:15 PT 14.2 SECONDS (9.4-12.5) H 04/17/18 17:04 INR 1.24 (0.93-1.08) H 04/17/18 17:04 APTT 32.3 Seconds (25.1-36.5) 04/17/18 17:04 - Constitutional Appears: Well - Head Exam Head Exam: ATRAUMATIC, NORMAL INSPECTION, NORMOCEPHALIC - Eye Exam Eye Exam: EOMI, Normal appearance, PERRL Pupil Exam: NORMAL ACCOMODATION, PERRL - ENT Exam ENT Exam: Mucous Membranes Moist, Normal Exam - Neck Exam Neck Exam: Full ROM, Normal Inspection. absent: Lymphadenopathy - Respiratory Exam Respiratory Exam: Clear to Ausculation Bilateral, NORMAL BREATHING PATTERN - Cardiovascular Exam Cardiovascular Exam: REGULAR RHYTHM, +S1, +S2. absent: Murmur - GI/Abdominal Exam GI & Abdominal Exam: Soft, Normal Bowel Sounds. absent: Tenderness - Extremities Exam Extremities Exam: Full ROM, Normal Capillary Refill, Normal Inspection. absent : Joint Swelling, Pedal Edema - Back Exam Back Exam: NORMAL INSPECTION - Neurological Exam Neurological Exam: Alert, Awake, CN II-XII Intact, Normal Gait, Oriented x3 - Psychiatric Exam Psychiatric exam: Normal Affect, Normal Mood - Skin Skin Exam: Dry, Intact, Normal Color, Warm Assessment and Plan - Assessment and Plan (Free Text) Assessment: (1) Malaise and fatigue Assessment and Plan: spiked another fever overnight will start vanco and zosyn ID consult F/U procal F/U blood cultures from port f/u blood and urine cultures NS @ 125 tylenol PRN for the fever Status: Acute Priority: High (2) Breast cancer metastasized to bone Assessment and Plan: Onc is Dr. Mak. I spoke with Dr. Mak. He says that they are getting ready to try new Rx for the cancer when this week. He is ok with the plan to draw cultures with no further inpatient management from him at this time. Oxy 5 Q6 PRN for pain Status: Chronic Priority: High (3) Prophylactic measure Assessment and Plan: Heparin SC Q8H SCD No GI PPX indicated at this time Status: Acute <Luis Castano B - Last Filed: 04/18/18 17:20> Objective - Vital Signs/Intake and Output Vital Signs (last 24 hours): Temp Pulse Resp BP Pulse Ox 98.1 F 105 H 20 127/77 98 04/18/18 14:00 04/18/18 14:00 04/18/18 14:00 04/18/18 14:00 04/18/18 14:00 Intake and Output: 04/18/18 04/18/18 06:59 18:59 Intake Total 180 360 Output Total 2 Balance 180 358 - Medications Medications: Current Medications Acetaminophen (Tylenol 325mg Tab) 650 mg PO Q6H PRN PRN Reason: Fever >100.4 F Docusate Sodium (Colace) 100 mg PO TID [facility] Last Admin: 04/18/18 13:09 Dose: 100 mg Ferrous Sulfate (Feosol) 324 mg PO TID [facility] Last Admin: 04/18/18 13:09 Dose: 324 mg Folic Acid (Folic Acid) 1 mg PO DAILY [facility] Last Admin: 04/18/18 10:29 Dose: 1 mg Heparin Sodium (Porcine) (Heparin) 5,000 units SC Q8 [facility] PRN Reason: Protocol Last Admin: 04/18/18 13:09 Dose: 5,000 units Sodium Chloride (Sodium Chloride 0.9%) 1,000 mls @ 125 mls/hr IV .Q8H [facility] Last Admin: 04/17/18 20:07 Dose: 125 mls/hr Vancomycin HCl (Vancomycin 1gm) 1 gm in 250 mls @ 167 mls/hr IVPB DAILY [facility] PRN Reason: Protocol Last Admin: 04/18/18 10:27 Dose: 167 mls/hr Piperacillin Sod/Tazobactam Sod (Zosyn 3.375 In Ns 100ml) 100 mls @ 200 mls/hr IVPB Q6 [facility] PRN Reason: Protocol Stop: 04/18/18 18:29 Last Admin: 04/18/18 13:06 Dose: 200 mls/hr Ibuprofen (Motrin Tab) 400 mg PO Q8H PRN PRN Reason: Temperature Last Admin: 04/18/18 10:28 Dose: 400 mg Multivitamins/Minerals (Therapeutic-M Tab) 1 tab PO 0800 [facility] Last Admin: 04/18/18 10:29 Dose: 1 tab Oxycodone HCl (Oxycodone Immediate Release Tab) 5 mg PO Q6H PRN PRN Reason: Pain, moderate (4-7) - Labs Labs: 04/18/18 06:15 04/18/18 06:15 PT 14.2 SECONDS (9.4-12.5) H 04/17/18 17:04 INR 1.24 (0.93-1.08) H 04/17/18 17:04 APTT 32.3 Seconds (25.1-36.5) 04/17/18 17:04 Attending/Attestation - Attestation I have personally seen and examined this patient.: Yes I have fully participated in the care of the patient.: Yes I have reviewed all pertinent clinical information, including history, physical exam and plan: Yes Notes (Text): I have seen and examined the patient at bedside. Agree with the above note with the following additions/ exceptions: Briefly this is 47 year old female with history of stage 4 breast cancer (ER/MA positive, HER2 negative), with metastasis to bone, liver, lung and spleen on hormonal therapy, admitted with malaise, fatigue, chills and fever. Tmax was 100.5. Blood, urine culture pending. Procal pending. Will continue broad spectrum IV antibiotics for now. ID consult pending. Upon discharge patient will follow up with Dr Mak.
[2018-04-18] MEDS: Piperacillin/Tazobact 3.375 gm 100 ML IVPB SCH ×3 (13:06→23:44)
[2018-04-18] MEDS: Sodium Chloride 0.9% 1,000 ML IV SCH (16:55)
[2018-04-18] MEDS ORDERED: IBRANCE 125 MG PO ONE (22:27)
--- NOTE | 2018-04-19 05:35 | CON ---
DATE: 04/18/2018 LOCATION: The patient is in room 564, bed 2. CHIEF COMPLAINT: Fever times several days. HISTORY OF PRESENT ILLNESS: This is a 47-year-old female originally from [place] who has a breast cancer with metastases to bone, liver and lung, who was admitted with a fever. She states the fever has been going on and off for sometime and she has mild shortness of breath and cough. No abdominal pain. No diarrhea or constipation. PAST MEDICAL HISTORY: Significant for breast cancer with metastases to the lung, liver and bone. PAST SURGICAL HISTORY: Significant for Port-A-Cath. Patient has a Port-A-Cath which was placed approximately a year ago. ALLERGIES: PATIENT HAS NO KNOWN ALLERGIES. MEDICATIONS: Are noted. PHYSICAL EXAMINATION: GENERAL: Patient is in bed. VITAL SIGNS: Temperature of 98, T-max is 100.5, respiratory rate of 18, heart rate of 100, blood pressure is 120/70. HEENT: Unremarkable. NECK: Supple. LUNGS: Have decreased breath sounds. HEART: Normal S1, S2. ABDOMEN: Soft, nontender. LABORATORY EXAMINATION: Reveals a white count of 10,000 and a hemoglobin of 8, platelets of 309. Coagulation is noted. Chemistries are reviewed with LFT elevations and procalcitonin is 0.39. Urinalysis is unremarkable. Influenza is negative. Blood cultures, no growth. Urine cultures are no growth. Chest x-ray is reported to be negative. QTc is 415. ASSESSMENT AND PLAN: This is a 47-year-old female from [place] with breast cancer with metastases to the bone, liver and lung on a Port-A-Cath, who now has fevers and tachycardia. Systemic inflammatory response syndrome. We must rule out further gastrointestinal pathology. We will order a CAT scan of the abdomen and pelvis. I doubt Port-A-Cath infection since the blood cultures are negative. We will continue the Zosyn and check on the CT of the abdomen and pelvis, check on the final culture results. Overall prognosis is quite poor for this unfortunate woman. Luis E Mock MD
[2018-04-19] MEDS: Piperacillin/Tazobact 3.375 gm 100 ML IVPB SCH ×2 (06:31→12:17)
[2018-04-19] MEDS ORDERED: Barium Sulfate Susp 2.1% w/v, 2.0% w/w 450 mL Bottle PO ONE (06:35)
[2018-04-19] MEDS: Multivitamin With Minerals Tab PO SCH (09:22)
[2018-04-19 10:32] LABS: BASO # 0.05 K/mm3 (0.0-2.0); BASO % 0.6 % (0.0-3.0); EOS # 0.2 (0.0-0.7); EOS % 1.8 % (1.5-5.0); GRAN # 5.71 (1.4-6.5); GRAN % 63.5 % (50.0-68.0); HEMOGLOBIN 7.6 g/dL (12.0-16.0); LYMPH # 2.3 (1.2-3.4); MEAN CELL VOLUME 89.3 fl (80.0-105.0); MEAN CORPUSCULAR HEMOGLOBIN 27.9 pg (25.0-35.0); MEAN CORPUSCULAR HGB CONC 31.3 g/dl (31.0-37.0); MONO # 0.7 (0.1-0.6); MONO % 8.1 % (1.0-6.0); PLATELET COUNT 243 10^3/uL (120.0-450.0); RBC 2.72 10^6/uL (3.5-6.1); RED CELL DISTRIBUTION WIDTH 19.2 % (11.5-14.5)
[2018-04-19 10:46] LABS: ALB/GLOB RATIO 1.1 (1.1-1.8); ALBUMIN 3.4 g/dL (3.0-4.8); ALT/SGPT 58 U/L (7-56); AST/SGOT 84 U/L (14-36); BLOOD UREA NITROGEN 7 mg/dL (7-21); CALCIUM 7.7 mg/dL (8.4-10.5); GFR AFRICAN-AMERICAN > 60; GFR NON-AFRICAN AMERICAN > 60
--- NOTE | 2018-04-19 11:32 | CT ---
PROCEDURE: CT Abdomen and Pelvis without intravenous contrast HISTORY: inc wbc Fever COMPARISON: 03/26/2018 CT TECHNIQUE: Without contrast.. Contrast dose: Radiation dose: Total exam DLP = 509 mGy-cm. This CT exam was performed using one or more of the following dose reduction techniques: Automated exposure control, adjustment of the mA and/or kV according to patient size, and/or use of iterative reconstruction technique. FINDINGS: LOWER THORAX: Small bilateral pulmonary nodules are again seen. These are unchanged LIVER: Multiple large hepatic metastases are demonstrated. These were better seen on the previous contrast-enhanced study. These are roughly similar in size. There is hepatomegaly GALLBLADDER AND BILE DUCTS: Unremarkable. PANCREAS: Unremarkable. No gross lesion or ductal dilatation. SPLEEN: Unremarkable. ADRENALS: Unremarkable. No mass. KIDNEYS AND URETERS: Unremarkable. No hydronephrosis. No solid mass. VASCULATURE: Unremarkable. No aortic aneurysm. BOWEL: Unremarkable. No obstruction. No gross mural thickening. APPENDIX: Unremarkable. Normal appendix. PERITONEUM: There is a small amount of free fluid in the cul-de-sac LYMPH NODES: Unremarkable. No enlarged lymph nodes. BLADDER: Unremarkable. REPRODUCTIVE: Unremarkable. BONES: Sclerotic bony metastases are seen throughout the lumbar spine and sacrum OTHER FINDINGS: None. IMPRESSION: Extensive metastatic disease to the liver, unchanged. Small amount of fluid in the cul-de-sac. No evidence of abscess
[2018-04-19 11:44] LABS: BAND 5 % (0-2); EOSINOPHIL 3 % (0.0-3.0); LARGE PLATELETS PRESENT; LYMPHOCYTE 17 % (22.0-35.0); METAMYELOCYTE 1 %; MONOCYTE 6 % (1.0-6.0); MYELOCYTE 2 %; NEUTROPHIL 66 % (50.0-70.0); NUCLEATED RED BLOOD CELL 1 %; POLYCHROMASIA SLIGHT
--- NOTE | 2018-04-19 15:06 | CP.PCM.DIS ---
Provider - Provider Date of Admission: 04/17/18 18:05 Attending physician: Luis Castano MD Hospital Course - Lab Results Lab Results: Micro Results 04/18/18 12:00 Blood-Thru Central Line Blood Culture - Preliminary NO GROWTH AFTER 24 HOURS Most Recent Lab Values WBC 9.0 10^3/ul (4.5-11.0) 04/19/18 10:25 RBC 2.72 10^6/uL (3.5-6.1) L 04/19/18 10:25 Hgb 7.6 g/dL (12.0-16.0) L 04/19/18 10:25 Hct 24.3 % (36.0-48.0) L 04/19/18 10:25 MCV 89.3 fl (80.0-105.0) 04/19/18 10:25 MCH 27.9 pg (25.0-35.0) 04/19/18 10:25 MCHC 31.3 g/dl (31.0-37.0) 04/19/18 10:25 RDW 19.2 % (11.5-14.5) H 04/19/18 10:25 Plt Count 243 10^3/uL (120.0-450.0) 04/19/18 10:25 MPV 8.0 fl (7.0-11.0) 04/19/18 10:25 Gran % 63.5 % (50.0-68.0) 04/19/18 10:25 Lymph % (Auto) 26.0 % (22.0-35.0) 04/19/18 10:25 [place] % (Auto) 8.1 % (1.0-6.0) H 04/19/18 10:25 Eos % (Auto) 1.8 % (1.5-5.0) 04/19/18 10:25 Baso % (Auto) 0.6 % (0.0-3.0) 04/19/18 10:25 Gran # 5.71 (1.4-6.5) 04/19/18 10:25 Lymph # (Auto) 2.3 (1.2-3.4) 04/19/18 10:25 [place] # (Auto) 0.7 (0.1-0.6) H 04/19/18 10:25 Eos # (Auto) 0.2 (0.0-0.7) 04/19/18 10:25 Baso # (Auto) 0.05 K/mm3 (0.0-2.0) 04/19/18 10:25 Neutrophils % (Manual) 66 % (50.0-70.0) 04/19/18 10:25 Band Neutrophils % 5 % (0-2) H 04/19/18 10:25 Lymphocytes % (Manual) 17 % (22.0-35.0) L 04/19/18 10:25 Monocytes % (Manual) 6 % (1.0-6.0) 04/19/18 10:25 Eosinophils % (Manual) 3 % (0.0-3.0) 04/19/18 10:25 Basophils % (Manual) 1 % (0.0-1.0) 04/17/18 17:04 Metamyelocytes % 1 % 04/19/18 10:25 Myelocytes % 2 % 04/19/18 10:25 Nucleated RBC % 1 % 04/19/18 10:25 Large Platelets Present 04/19/18 10:25 Polychromasia Slight 04/19/18 10:25 Anisocytosis (manual) Slight 04/17/18 17:04 PT 14.2 SECONDS (9.4-12.5) H 04/17/18 17:04 INR 1.24 (0.93-1.08) H 04/17/18 17:04 APTT 32.3 Seconds (25.1-36.5) 04/17/18 17:04 pO2 48 mm/Hg (30-55) 04/17/18 17:04 VBG pH 7.38 (7.32-7.43) 04/17/18 17:04 VBG pCO2 42.0 (40-60) 04/17/18 17:04 VBG HCO3 24.8 mmol/l (21-28) 04/17/18 17:04 VBG Total CO2 26.1 mmol.L (22-28) 04/17/18 17:04 VBG O2 Sat (Calc) 85.0 % (40-65) H 04/17/18 17:04 VBG Base Excess -0.4 mmol/L (0.0-2.0) L 04/17/18 17:04 VBG Potassium 5.5 mmol/L (3.6-5.2) H 04/17/18 17:04 Sodium 134.0 mmol/L (132-148) 04/17/18 17:04 Chloride 104.0 mmol/L (98-107) 04/17/18 17:04 Glucose 91 mg/dl (65-105) 04/17/18 17:04 Lactate 1.7 mmol/L (0.7-2.1) 04/17/18 17:04 FiO2 21.0 % 04/17/18 17:04 Sodium 143 mmol/L (132-148) 04/19/18 10:25 Potassium 4.0 mmol/L (3.6-5.0) 04/19/18 10:25 Chloride 107 mmol/L (98-107) 04/19/18 10:25 Carbon Dioxide 23 mmol/L (21-33) 04/19/18 10:25 Anion Gap 17 (10-20) 04/19/18 10:25 BUN 7 mg/dL (7-21) 04/19/18 10:25 Creatinine 0.7 mg/dl (0.7-1.2) 04/19/18 10:25 Est GFR ( Amer) > 60 04/19/18 10:25 Est GFR (Non-Af Amer) > 60 04/19/18 10:25 Random Glucose 101 mg/dL (70-110) 04/19/18 10:25 Calcium 7.7 mg/dL (8.4-10.5) L 04/19/18 10:25 Phosphorus 3.8 mg/dL (2.5-4.5) 04/18/18 06:15 Magnesium 2.4 mg/dL (1.7-2.2) H 04/19/18 10:25 Total Bilirubin 0.7 mg/dL (0.2-1.3) 04/19/18 10:25 AST 84 U/L (14-36) H D 04/19/18 10:25 ALT 58 U/L (7-56) H 04/19/18 10:25 Alkaline Phosphatase 212 U/L (38-126) H 04/19/18 10:25 Total Protein 6.5 g/dL (5.8-8.3) 04/19/18 10:25 Albumin 3.4 g/dL (3.0-4.8) 04/19/18 10:25 Globulin 3.1 gm/dL 04/19/18 10:25 Albumin/Globulin Ratio 1.1 (1.1-1.8) 04/19/18 10:25 Procalcitonin 0.39 NG/ML (0.19-0.49) 04/18/18 10:50 Venous Blood Potassium 5.5 mmol/L (3.6-5.2) H 04/17/18 17:04 Urine Color Colorless (YELLOW) 04/17/18 16:35 Urine Appearance Clear (CLEAR) 04/17/18 16:35 Urine pH 6.0 (4.7-8.0) 04/17/18 16:35 Ur Specific [place] 1.010 (1.005-1.035) 04/17/18 16:35 Urine Protein Negative mg/dL (<30 mg/dL) 04/17/18 16:35 Urine Glucose (UA) Negative mg/dL (NEGATIVE) 04/17/18 16:35 Urine Ketones Negative mg/dL (NEGATIVE) 04/17/18 16:35 Urine Blood Negative (NEGATIVE) 04/17/18 16:35 Urine Nitrate Negative (NEGATIVE) 04/17/18 16:35 Urine Bilirubin Negative (NEGATIVE) 04/17/18 16:35 Urine Urobilinogen 0.2 E.U./dL (<1 E.U./dL) 04/17/18 16:35 Ur Leukocyte Esterase Negative [place]/uL (NEGATIVE) 04/17/18 16:35 Influenza Typ A,B (EIA) Negative for flu a/b (NEGATIVE) 04/17/18 17:36 Discharge Exam - Head Exam Head Exam: ATRAUMATIC, NORMAL INSPECTION, NORMOCEPHALIC Discharge Plan - Discharge Medications Prescriptions: Amoxicillin/Clavulanate [Augmentin 875 MG-125 MG] 1 tab PO BID 7 Days tab Saccharomyces Boulardi [Florastor] 250 mg PO BID 37 Days cap - Follow Up Plan Condition: STABLE Disposition: HOME/ ROUTINE Additional Instructions: Please follow up with your regular doctor in 7-10 days Please follow up with Dr. Mak when you leave the hospital Please take augmentin twice a day for 7 days Please take floraster for 37 days. Take 2 hours after breakfast and 2 hours before dinner. Please come back to the ED if symptoms return
[2018-04-19 15:10] VITALS: BP 138/91; TEMP 98.4
[2018-04-19 15:15] VITALS: PULSE 78; RESP 18; O2SAT 98
--- NOTE | 2018-04-19 16:01 | PN ---
DATE: 04/19/2018 SUBJECTIVE: Patient was seen earlier this morning. Patient is doing better, slightly improved. PHYSICAL EXAMINATION: VITAL SIGNS: Temperature is 97, blood pressure is , respiratory rate of 18. HEENT: Examination is unremarkable. NECK: Supple. LUNGS: Have decreased breath sounds. HEART: Normal S1 and S2. ABDOMEN: Soft. LABORATORY DATA: Reveals a white count of , platelets of 248. Chemistries reveal BUN of 7, creatinine of 0.7. Urinalysis is noted. Serology is negative. Microbiology: Blood cultures are negative. cultures are negative. The patient is scheduled for CAT scan of the abdomen and pelvis. ASSESSMENT AND PLAN: This is a 47-year-old female who is originally from [place] with breast cancer with metastases to the bone, liver, lung with a Port-A-Cath; fever and tachycardia with SIRS, systemic inflammatory response syndrome, currently on Zosyn and waiting for final culture results and CAT scan results. We will make further recommendations. Patient seems to have responded to the antibiotic as far as the fever is concerned. Luis E Mock MD
== END 2018-04-19 18:13 | disposition home or self-care (01) | DRG 580 ==
LOC: ED 15:27 → ERH 18:05 → 5RNO 19:00
PROVIDERS: ADMIT Internal Medicine; ATTEND Hospitalist
DX: R50.9 Fever, unspecified (principal); R65.10 Systemic inflammatory response syndrome (SIRS) of non-infectious origin without acute organ dysfunction; D89.9 Disorder involving the immune mechanism, unspecified; C78.00 Secondary malignant neoplasm of unspecified lung; C79.51 Secondary malignant neoplasm of bone; C78.7 Secondary malignant neoplasm of liver and intrahepatic bile duct; C50.912 Malignant neoplasm of unspecified site of left female breast; Z80.3 Family history of malignant neoplasm of breast; Z17.0 Estrogen receptor positive status [ER+]; R21 Rash and other nonspecific skin eruption

== ENCOUNTER 2018-06-22 13:23 | Emergency (ER) | payer OTHER ==
[2018-06-22 13:23] VITALS: BMI 25.4
--- NOTE | 2018-06-22 14:17 | ED PDOC ---
Arrival/HPI - General Time Seen by Provider: 06/22/18 14:12 Historian: Patient - History of Present Illness Narrative History of Present Illness (Text): 06/22/18 14:14 48 year old female, whose past medical history includes breast cancer with mets to the bone and lungs, who presents to the ED complaining of hematuria x 1 day and left flank pain x 3 days.Patient notes associated nausea. Patient notes she took oxycodone for the pain which provided relief. Patient denies any fever, chills, vomiting, diarrhea, back pain, neck pain, or any other complaints. Time/Duration: < week (3 days) Symptom Onset: Gradual Symptom Course: Unchanged Activities at Onset: Light Context: Home Past Medical History - Provider Review Nursing Documentation Reviewed: Yes - Infectious Disease Hx of Infectious Diseases: None - Cardiac Hx Cardiac Disorders: No - Pulmonary Hx Respiratory Disorders: No - Neurological Hx Neurological Disorder: No - HEENT Hx HEENT Disorder: No - Endocrine/Metabolic Hx Endocrine Disorders: No - Hematological/Oncological Hx Blood Disorders: Yes Hx Cancer: Yes (LEFT BREAST CANCER with mets) Other/Comment: Left breast CA stage 4 - Integumentary Hx Dermatological Disorder: Yes Other/Comment: RASH FROM BIOPSY ON LEFT BREAST - Musculoskeletal/Rheumatological Hx Falls: No - Gastrointestinal Hx Gastrointestinal Disorders: No - Genitourinary/Gynecological Other/Comment: induced menopause 2016 r/t chemo therapy - Psychiatric Hx Psychophysiologic Disorder: No Hx Substance Use: No - Surgical History Hx Breast Biopsy: Yes Other/Comment: SURGERY ON EAR. Port-a-Cath Placement right chest - Anesthesia Hx Anesthesia: Yes Hx Anesthesia Reactions: No Hx Malignant Hyperthermia: No Family/Social History - Physician Review Nursing Documentation Reviewed: Yes Family/Social History: Unknown Family HX Smoking Status: Never Smoked Hx Alcohol Use: No Hx Substance Use: No Allergies/Home Meds Allergies/Adverse Reactions: Allergies No Known Allergies Allergy (Verified 06/22/18 14:20) Home Medications: Home Meds Medication Instructions Recorded Confirmed Calcium Carbonate/Vitamin D3 1 each PO DAILY 09/10/16 06/22/18 [Calcium 500-Vit D3 400 Tablet] Folic Acid/Mv,Iron,Min [One Daily 1 each PO DAILY 09/19/17 06/22/18 For Women Tablet] Letrozole [Femara] 2.5 mg PO DAILY 04/18/18 06/22/18 Palbociclib [Ibrance] 125 mg PO DAILY 04/18/18 06/22/18 Review of Systems - Physician Review All systems were reviewed & negative as marked: Yes - Review of Systems Constitutional: Normal Eyes: Normal ENT: Normal Respiratory: Normal. absent: SOB, Cough Cardiovascular: Normal. absent: Chest Pain Gastrointestinal: Abdominal Pain (left flank pain), Nausea. absent: Diarrhea, Vomiting Genitourinary Female: Hematuria Musculoskeletal: Normal. absent: Back Pain, Neck Pain Skin: Normal. absent: Rash Neurological: Normal. absent: Headache, Dizziness Endocrine: Normal Hemo/Lymphatic: Normal Psychiatric: Normal Physical Exam Vital Signs Reviewed: Yes Vital Signs Temp Pulse Resp BP Pulse Ox 06/22/18 14:21 97.8 F 78 17 104/66 99 - Systems Exam Head: Present: Atraumatic, Normocephalic Pupils: Present: PERRL Extroacular Muscles: Present: EOMI Conjunctiva: Present: Normal Mouth: Present: Moist Mucous Membranes Neck: Present: Normal Range of Motion Respiratory/Chest: Present: Clear to Auscultation, Good Air Exchange. No: Respiratory Distress, Accessory Muscle Use Cardiovascular: Present: Regular Rate and Rhythm, Normal S1, S2. No: Murmurs Abdomen: No: Tenderness, Distention, Peritoneal Signs Back: Present: Normal Inspection Upper Extremity: Present: Normal Inspection. No: Cyanosis, Edema Lower Extremity: Present: Normal Inspection. No: Edema Neurological: Present: GCS=15, CN II-XII Intact, Speech Normal Skin: Present: Warm, Dry, Normal Color. No: Rashes Psychiatric: Present: Alert, Oriented x 3, Normal Insight, Normal Concentration Medical Decision Making ED Course and Treatment: 06/22/18 14:19 Impression: 48 year old female presents to the ED complaining of hematuria x 1 days and lft flank pain x 3 days. Plan: -- Zofran -- Labs -- IV Fluid -- CT Abdomen Progress Notes: PROCEDURE: CT Abdomen and Pelvis without intravenous contrast Dictator : Yuri Joel MD Report Date : 06/22/2018 15:45:51 IMPRESSION: Diffuse metastatic disease to the liver unchanged. No evidence of renal or ureteral stones 06/22/18 17:26 On reevaluation the patient feels better and is in no acute distress. I have discussed the results and plan with the patient, who expresses understanding. Patient given the opportunity to ask question, all questions were answered and there is agreement with the plan to discharge the patient home. Patient is stable for discharge. Patient was instructed to follow up with physician/clinic in 1-2 days or return if symptoms persist/worsen or new concerning symptoms arise. - Lab Interpretations Lab Results: 06/22/18 15:04 06/22/18 15:04 Lab Results 06/22/18 15:49: Urine Color Light yellow, Urine Appearance Clear, Urine pH 7.5, Ur Specific [place] 1.010, Urine Protein Negative, Urine Glucose (UA) Negative, Urine Ketones Negative, Urine Blood Negative, Urine Nitrate Negative, Urine Bilirubin Negative, Urine Urobilinogen 0.2, Ur Leukocyte Esterase Negative 06/22/18 15:04: Sodium 141, Potassium 4.6, Chloride 104, Carbon Dioxide 28, Anion Gap 14, BUN 16, Creatinine 0.8, Est GFR ( Amer) > 60, Est GFR (Non- Af Amer) > 60, Random Glucose 92, Calcium 9.0, Total Bilirubin 0.6, AST 74 H D, ALT 66 H, Alkaline Phosphatase 163 H D, Total Protein 7.2, Albumin 4.2, Globulin 2.9, Albumin/Globulin Ratio 1.4 06/22/18 15:04: WBC 3.0 L D, RBC 3.08 L, Hgb 9.3 L, Hct 28.5 L, MCV 92.5 D, MCH 30.2, MCHC 32.6, RDW 18.0 H, Plt Count 247, MPV 8.4, Gran % 49.8 L, Lymph % (Auto) 39.9 H, [place] % (Auto) 4.0, Eos % (Auto) 4.0, Baso % (Auto) 2.3, Gran # 1.50, Lymph # (Auto) 1.2, [place] # (Auto) 0.1, Eos # (Auto) 0.1, Baso # (Auto) 0.07 - RAD Interpretation Radiology Orders: 06/22/18 14:29 ABD & PELVIS W/O PO OR IV CONT [CT] Stat - Medication Orders Current Medication Orders: Discontinued Medications Sodium Chloride (Sodium Chloride 0.9%) 1,000 mls @ 999 mls/hr IV .Q1H1M STA Stop: 07/26/18 15:30 Last Admin: 06/22/18 15:41 Dose: 999 mls/hr eMAR Start Stop Document 06/22/18 15:41 LA (Rec: 06/22/18 15:41 LA [id number]) Intravenous Solution Start Date 06/22/18 Start Time 15:41 End Date 06/22/18 End time 16:42 Total Infusion Time 61 Ondansetron HCl (Zofran Inj) 4 mg IVP STAT STA Stop: 06/22/18 14:32 Last Admin: 06/22/18 15:45 Dose: 4 mg IVP Administration Document 06/22/18 15:45 LA (Rec: 06/22/18 15:45 LA [id number]) Charges for Administration # of IVP Administrations 1 - Scribe Statement The provider has reviewed the documentation as recorded by the Scribe Malini Arizmendi All medical record entries made by the Scribe were at my direction and personally dictated by me. I have reviewed the chart and agree that the record accurately reflects my personal performance of the history, physical exam, medical decision making, and the department course for this patient. I have also personally directed, reviewed, and agree with the discharge instructions and disposition. Disposition/Present on Arrival - Present on Arrival Any Indicators Present on Arrival: No History of DVT/PE: No History of Uncontrolled Diabetes: No Urinary Catheter: No History Surgical Site Infection Following: None - Disposition Have Diagnosis and Disposition been Completed?: Yes Diagnosis: Flank pain Disposition: HOME/ ROUTINE Disposition Time: 17:26 Patient Plan: Discharge Patient Problems: Current Active Problems Problem Status Onset Flank pain Acute Condition: GOOD Discharge Instructions (ExitCare): Flank Pain [place] [facility] [place] [facility] [place] [place] - Follow up with primary [facility] at [facility] [Outside] - Follow up with primary [facility] at [place] [Outside] - Follow up with primary Forms: [employer] ([place])
[2018-06-22 14:25] VITALS: TEMP 97.8; O2SAT 99
[2018-06-22] MEDS ORDERED: Sodium Chloride 0.9% 1,000 ML IV STA (14:30)
[2018-06-22 15:28] LABS: ALB/GLOB RATIO 1.4 (1.1-1.8); ALBUMIN 4.2 g/dL (3.0-4.8); ALT/SGPT 66 U/L (7-56); AST/SGOT 74 U/L (14-36); BLOOD UREA NITROGEN 16 mg/dL (7-21); GFR AFRICAN-AMERICAN > 60; GFR NON-AFRICAN AMERICAN > 60
[2018-06-22 15:31] LABS: BASO # 0.07 K/mm3 (0.0-2.0); BASO % 2.3 % (0.0-3.0); EOS # 0.1 (0.0-0.7); GRAN # 1.5 (1.4-6.5); GRAN % 49.8 % (50.0-68.0); HEMOGLOBIN 9.3 g/dL (12.0-16.0); LYMPH # 1.2 (1.2-3.4); LYMPH % 39.9 % (22.0-35.0); MEAN CELL VOLUME 92.5 fl (80.0-105.0); MEAN CORPUSCULAR HEMOGLOBIN 30.2 pg (25.0-35.0); MEAN CORPUSCULAR HGB CONC 32.6 g/dl (31.0-37.0); MEAN PLATELET VOLUME 8.4 fl (7.0-11.0); MONO # 0.1 (0.1-0.6); RBC 3.08 10^6/uL (3.5-6.1)
--- NOTE | 2018-06-22 15:47 | CT ---
Date of service: 06/22/2018 PROCEDURE: CT Abdomen and Pelvis without intravenous contrast HISTORY: renal stone COMPARISON: 04/19/2018 TECHNIQUE: Without contrast. Contrast dose: Radiation dose: Total exam DLP = 395 mGy-cm. This CT exam was performed using one or more of the following dose reduction techniques: Automated exposure control, adjustment of the mA and/or kV according to patient size, and/or use of iterative reconstruction technique. FINDINGS: LOWER THORAX: Unremarkable. LIVER: There is diffuse metastatic disease throughout the liver. This is unchanged. GALLBLADDER AND BILE DUCTS: Unremarkable. PANCREAS: Unremarkable. No gross lesion or ductal dilatation. SPLEEN: Unremarkable. ADRENALS: Unremarkable. No mass. KIDNEYS AND URETERS: Unremarkable. No hydronephrosis. No solid mass. VASCULATURE: Unremarkable. No aortic aneurysm. BOWEL: Unremarkable. No obstruction. No gross mural thickening. APPENDIX: Unremarkable. Normal appendix. PERITONEUM: Minimal free fluid LYMPH NODES: Unremarkable. No enlarged lymph nodes. BLADDER: Unremarkable. REPRODUCTIVE: Unremarkable. BONES: Sclerotic changes are seen throughout the spine suspicious for metastatic disease OTHER FINDINGS: None. IMPRESSION: Diffuse metastatic disease to the liver unchanged. No evidence of renal or ureteral stones
[2018-06-22 16:18] LABS: PH,URINE 7.5 (4.7-8.0); URINE BILIRUBIN NEGATIVE (NEGATIVE); URINE BLOOD NEGATIVE (NEGATIVE); URINE GLUCOSE (UA) NEGATIVE (NEGATIVE); URINE LEUKOCYTE ESTERASE NEGATIVE Leu/uL (NEGATIVE); URINE PROTEIN NEGATIVE mg/dL (<30 mg/dL); URINE UROBILINOGEN 0.2 E.U./dL (<1 E.U./dL)
[2018-06-22 16:20] LABS: URINE APPEARANCE CLEAR (CLEAR); URINE COLOR LIGHT YELLOW (YELLOW)
[2018-06-22 17:29] VITALS: RESP 20
[2018-06-22 17:37] VITALS: BP 110/66; PULSE 70
== END 2018-06-22 17:29 | disposition home or self-care (01) ==
LOC: ED 13:23
DX: R10.9 Unspecified abdominal pain (principal)
CPT/HCPCS: 74176; 80053; 81003; 85025; 87086; 96361; 96374; 99284; J2405; J7030

== ENCOUNTER 2018-08-09 21:48 | Inpatient (IN) | payer OTHER ==
[2018-08-09] MEDS ORDERED: Sodium Chloride 0.9% 1,000 ML IV STA (22:19)
--- NOTE | 2018-08-09 22:53 | ED PDOC ---
Arrival/HPI - General Chief Complaint: Abdominal Pain Time Seen by Provider: 08/09/18 21:53 Historian: Patient - History of Present Illness Narrative History of Present Illness (Text): 08/09/18 22:51 48-year-old female with a history of metastatic breast cancer presents today with right upper quadrant abdominal pain that is been worsening for the past week. Patient states she's noticed a tightness across the upper abdomen. Patient states she feels like her abdomen has become distended/bloated. Patient states over the past 3 days she's noticed bilateral lower leg swelling. She is complaining of difficulty with deep inspiration which she relates to the tightness/swelling/bloating wrapping around the abdomen. Patient denies fevers. She denies cough. Patient states she is also noticed her skin has turned more yellow. Patient states she was visiting [facility] and just returned today. Patient states symptoms started while she was in [place] and waited until today to be evaluated. Past Medical History - Provider Review Nursing Documentation Reviewed: Yes - Travel History Have you recently traveled outside [place] w/in the past 3 mons?: No - Infectious Disease Hx of Infectious Diseases: None - Cardiac Hx Cardiac Disorders: No - Pulmonary Hx Respiratory Disorders: No - Neurological Hx Neurological Disorder: No - HEENT Hx HEENT Disorder: No - Endocrine/Metabolic Hx Endocrine Disorders: No - Hematological/Oncological Hx Blood Disorders: Yes Hx Cancer: Yes (LEFT BREAST CANCER with mets) Other/Comment: Left breast CA stage 4. Metastatic CA to Bone, Lung and Liver. - Integumentary Hx Dermatological Disorder: Yes Other/Comment: RASH FROM BIOPSY ON LEFT BREAST - Musculoskeletal/Rheumatological Hx Falls: No - Gastrointestinal Hx Gastrointestinal Disorders: No - Genitourinary/Gynecological Other/Comment: induced menopause 2016 r/t chemo therapy - Psychiatric Hx Psychophysiologic Disorder: No Hx Substance Use: No - Surgical History Hx Breast Biopsy: Yes Other/Comment: SURGERY ON EAR. Port-a-Cath Placement right chest - Anesthesia Hx Anesthesia: Yes Hx Anesthesia Reactions: No Hx Malignant Hyperthermia: No Family/Social History - Physician Review Nursing Documentation Reviewed: Yes Family/Social History: Unknown Family HX Smoking Status: Never Smoked Hx Alcohol Use: No Hx Substance Use: No Allergies/Home Meds Allergies/Adverse Reactions: Allergies No Known Allergies Allergy (Verified 06/22/18 14:20) Home Medications: Home Meds Medication Instructions Recorded Confirmed Calcium Carbonate/Vitamin D3 1 each PO DAILY 09/10/16 08/10/18 [Calcium 500-Vit D3 400 Tablet] Folic Acid/Mv,Iron,Min [One Daily 1 each PO DAILY 09/19/17 08/10/18 For Women Tablet] Letrozole [Femara] 2.5 mg PO DAILY 04/18/18 08/10/18 Palbociclib [Ibrance] 125 mg PO DAILY 04/18/18 08/10/18 Review of Systems - Review of Systems Constitutional: absent: Fatigue, Fevers Respiratory: SOB. absent: Cough Cardiovascular: absent: Chest Pain, Palpitations Gastrointestinal: Abdominal Pain, Nausea, Appetite Changes. absent: Constipation, Diarrhea, Vomiting Genitourinary Female: absent: Dysuria, Frequency, Hematuria Musculoskeletal: Other (b/l lower leg swelling). absent: Arthralgias, Back Pain , Neck Pain Psychiatric: absent: Anxiety, Depression Physical Exam Vital Signs Reviewed: Yes Vital Signs Temp Pulse Resp BP Pulse Ox 08/10/18 02:11 88 18 100 08/10/18 01:12 98 F 87 16 110/64 99 08/10/18 00:59 89 16 108/55 L 100 08/09/18 22:06 99 F 108 H 18 101/66 100 Temperature: Afebrile Blood Pressure: Normal Pulse: Tachycardic Respiratory Rate: Normal Appearance: Positive for: Well-Appearing, Non-Toxic, Comfortable Pain Distress: None Mental Status: Positive for: Alert and Oriented X 3 - Systems Exam Head: Present: Atraumatic Conjunctiva: Present: Normal Mouth: Present: Moist Mucous Membranes Respiratory/Chest: Present: Clear to Auscultation, Good Air Exchange. No: Respiratory Distress, Accessory Muscle Use, Decreased Breath Sounds, Retracting , Tachypneic Cardiovascular: Present: Regular Rate and Rhythm Abdomen: Present: Tenderness (+ RUQ tenderness), Distention, Guarding. No: Rebound Back: Present: Normal Inspection. No: Midline Tenderness, Paraspinal Tenderness Upper Extremity: Present: Normal ROM Lower Extremity: Present: Edema (b/l lower leg edema), Normal ROM. No: CALF TENDERNESS Neurological: Present: GCS=15, Speech Normal Skin: Present: Warm, Dry, Pale Psychiatric: Present: Alert, Oriented x 3 Medical Decision Making ED Course and Treatment: 08/09/18 23:00 48yr old female with hx of metastatic breast CA now with abdominal pain, lower leg swelling, sob. ekg; normal sinus rhythm at 98 bpm normal axis no ST elevations normal intervals cbc; hgb; 7.8 cmp; elevated lfts cxr; no infiltrate, no effusion duplex lower legs bilaterally: no dvt abdominal US; FINDINGS: Liver: Liver is enlarged and heterogeneous a 24 cm. Multiple liver lesions are present. No intrahepatic bile duct dilation. Gallbladder: Gallbladder wall edema is present with thickness of 6 mm. Sonographic Shelby's sign is negative. No gallstones. Common bile duct: Common bile duct 2 mm. No stones. No dilation. Pancreas: Unremarkable as visualized. Kidneys: Right kidney 10.4, left kidney 11.4 cm. No stones. No hydronephrosis. Spleen: Spleen is 10.1 cm. Aorta: Unremarkable. No aneurysm. Inferior vena cava: Unremarkable. IMPRESSION: There is enlarged liver with diffuse hepatic lesions consistent with metastasis. Nonspecific gallbladder wall edema and thickening without stones or biliary obstruction. The gallbladder is contracted. CT abd/pelvis: 08/09/18 23:57 Consent for blood transfusion obtained Patient given 2 units PRBCs. 08/10/18 01:[address] Monzon; accepts admission to med/surg 08/10/18 02:20 CT Abdomen and PelvisL Lower thorax: No acute findings. ABDOMEN: Liver: Enlarged liver with multiple hypodense lesions. Gallbladder and bile ducts: Gallbladder appears contracted, limits evaluation. Pancreas: Normal. No ductal dilation. Spleen: Subtle hypodense areas within the spleen. Adrenals: Normal. No mass. Kidneys and ureters: Normal. No hydronephrosis. Stomach and bowel: Normal. No obstruction. No mucosal thickening. Appendix: No evidence of appendicitis. PELVIS: Bladder: Unremarkable as visualized. Reproductive: Uterus appears within normal limits. ABDOMEN and PELVIS: Intraperitoneal space: Mild-moderate abdominal and pelvic free fluid, increased since prior study. Bones/joints: Extensive heterogeneity of the osseous structures-axial skeleton. Soft tissues: Unremarkable. Vasculature: Effacement of the IVC. Mild narrowing of the main portal vein which is patent. Multiple upper abdominal and left retroperitoneal collateral vessels. Lymph nodes: Normal. No enlarged lymph nodes. IMPRESSION: 1. Enlarged liver with extensive metastatic disease. 2. Mild narrowing of the main portal vein which is patent. Multiple upper abdominal and left retroperitoneal collateral vessels. --Findings suggest underlying portal hypertension. 3. Mild-moderate abdominal and pelvic free fluid, increased since prior study. 4. Diffuse osseous metastatic disease. 5. Subtle hypodense areas within the spleen. Possible metastasis cannot be excluded. impression; anemia, abdominal pain, acites, elevated LFTS admit to med/surg - Lab Interpretations Lab Results: 08/09/18 22:30 08/09/18 22:30 Lab Results 08/10/18 00:04: Urine Color Yellow, Urine Appearance Clear, Urine pH 6.5, Ur Specific [place] <= 1.005, Urine Protein Negative, Urine Glucose (UA) Negative, Urine Ketones Negative, Urine Blood Negative, Urine Nitrate Negative, Urine Bilirubin Negative, Urine Urobilinogen 0.2, Ur Leukocyte Esterase Trace H, Urine RBC 0 - 2, Urine WBC 1 - 3, Ur Epithelial Cells 0 - 2, Urine Bacteria Rare 08/09/18 23:43: Blood Type O NEGATIVE, Antibody Screen Negative, Crossmatch See Detail, BBK History Checked Patient has bt 08/09/18 23:18: Ammonia 17 08/09/18 22:30: PT 17.3 H, INR 1.50, APTT 29.5 08/09/18 22:30: WBC 3.9 L D, RBC 2.29 L, Hgb 7.8 L, Hct 23.1 L, MCV 100.9 D, MCH 34.1, MCHC 33.8, RDW 19.9 H, Plt Count 205, MPV 8.8, Gran % 55.4, Lymph % ( Auto) 29.8, [place] % (Auto) 14.0 H, Eos % (Auto) 0.3 L, Baso % (Auto) 0.5, Gran # 2.14, Lymph # (Auto) 1.2, [place] # (Auto) 0.5, Eos # (Auto) 0.0, Baso # (Auto) 0.02 08/09/18 22:30: Sodium 134, Potassium 4.0, Chloride 99, Carbon Dioxide 23, Anion Gap 16, BUN 9, Creatinine 0.6 L, Est GFR ( Amer) > 60, Est GFR (Non -Af Amer) > 60, Random Glucose 120 H, Calcium 8.4, Total Bilirubin 2.1 H, AST 365 H D, ALT 118 H, Alkaline Phosphatase 466 H D, Total Protein 6.4, Albumin 3.3 , Globulin 3.1, Albumin/Globulin Ratio 1.1, Lipase 75 I have reviewed the lab results: Yes - RAD Interpretation Radiology Orders: 08/09/18 22:19 CHEST PORTABLE [RAD] Stat 08/09/18 22:39 DUPLEX LOWER EXTRM VEIN BILAT [US] Stat 08/09/18 22:50 ABDOMEN COMPLETE [US] Stat 08/10/18 00:38 ABD & PELVIS IV CONTRAST ONLY [CT] Stat Assistant Director Of Nursing: Radiologist - Medication Orders Current Medication Orders: Discontinued Medications Sodium Chloride (Sodium Chloride 0.9%) 1,000 mls @ 999 mls/hr IV .Q1H1M STA Stop: 08/09/18 23:19 Last Admin: 08/09/18 22:44 Dose: 999 mls/hr eMAR Start Stop Document 08/09/18 22:44 (Rec: 08/09/18 22:46 [id number] Intravenous Solution Start Date 08/09/18 Start Time 22:44 Morphine Sulfate (Morphine) 4 mg IVP STAT STA Stop: 08/10/18 00:46 Last Admin: 08/10/18 01:04 Dose: 4 mg MAR Pain Assessment Document 08/10/18 01:04 (Rec: 08/10/18 01:04 [id number] Pain Reassessment Is this a pain reassessment? Yes Sleep Is patient sleeping during reassessment? No Presence of Pain Presence of Pain Yes Location Left, Right or Bilateral Right Upper or Lower Upper Pain Location Body Site Abdomen Description Description Constant Intensity of Pain at present 8 Pain Behavior Withdrawal from Touch Facial Grimacing IVP Administration Document 08/10/18 01:04 (Rec: 08/10/18 01:04 [id number]) Charges for Administration # of IVP Administrations 1 Ondansetron HCl (Zofran Inj) 4 mg IVP STAT STA Stop: 08/09/18 22:20 Last Admin: 08/09/18 22:47 Dose: 4 mg IVP Administration Document 08/09/18 22:47 RG (Rec: 08/09/18 22:47 [id number]) Charges for Administration # of IVP Administrations 1 Pantoprazole Sodium (Protonix Inj) 40 mg IVP STAT STA Stop: 08/09/18 22:20 Last Admin: 08/09/18 22:47 Dose: 40 mg IVP Administration Document 08/09/18 22:47 MADIE (Rec: 08/09/18 22:47 MADIE [id number]) Charges for Administration # of IVP Administrations 1 Disposition/Present on Arrival - Present on Arrival Any Indicators Present on Arrival: No History of DVT/PE: No History of Uncontrolled Diabetes: No Urinary Catheter: No History of Decub. Ulcer: No History Surgical Site Infection Following: None - Disposition Have Diagnosis and Disposition been Completed?: Yes Diagnosis: Anemia, Abdominal pain, Elevated LFTs, Ascites Disposition Time: :08 Patient Plan: Admission Patient Problems: Current Active Problems Problem Status Onset Abdominal pain Acute Anemia Acute Ascites Acute Elevated LFTs Acute Condition: FAIR
[2018-08-09 23:13] LABS: BASO # 0.02 K/mm3 (0.0-2.0); BASO % 0.5 % (0.0-3.0); EOS % 0.3 % (1.5-5.0); GRAN # 2.14 (1.4-6.5); GRAN % 55.4 % (50.0-68.0); HEMOGLOBIN 7.8 g/dL (12.0-16.0); LYMPH # 1.2 (1.2-3.4); LYMPH % 29.8 % (22.0-35.0); MEAN CORPUSCULAR HEMOGLOBIN 34.1 pg (25.0-35.0); MEAN CORPUSCULAR HGB CONC 33.8 g/dl (31.0-37.0); MEAN PLATELET VOLUME 8.8 fl (7.0-11.0); MONO # 0.5 (0.1-0.6); RBC 2.29 10^6/uL (3.5-6.1); RED CELL DISTRIBUTION WIDTH 19.9 % (11.5-14.5); WHITE BLOOD COUNT 3.9 10^3/ul (4.5-11.0)
[2018-08-09 23:22] LABS: ALB/GLOB RATIO 1.1 (1.1-1.8); ALBUMIN 3.3 g/dL (3.0-4.8); ALT/SGPT 118 U/L (7-56); AST/SGOT 365 U/L (14-36); BLOOD UREA NITROGEN 9 mg/dL (7-21); CALCIUM 8.4 mg/dL (8.4-10.5); GFR NON-AFRICAN AMERICAN > 60; LIPASE 75 U/L (23-300)
[2018-08-09 23:36] LABS: MEAN CELL VOLUME 100.9 fl (80.0-105.0)
[2018-08-09 23:56] LABS: INR 1.5; PARTIAL THROMBOPLASTIN TIME 29.5 Seconds (25.1-36.5); PROTHROMBIN TIME 17.3 SECONDS (9.4-12.5)
[2018-08-10 00:21] LABS: PH,URINE 6.5 (4.7-8.0); URINE BILIRUBIN NEGATIVE (NEGATIVE); URINE BLOOD NEGATIVE (NEGATIVE); URINE GLUCOSE (UA) NEGATIVE (NEGATIVE); URINE LEUKOCYTE ESTERASE TRACE Leu/uL (NEGATIVE); URINE PROTEIN NEGATIVE mg/dL (<30 mg/dL); URINE UROBILINOGEN 0.2 E.U./dL (<1 E.U./dL)
[2018-08-10 00:22] LABS: URINE APPEARANCE CLEAR (CLEAR); URINE COLOR YELLOW (YELLOW)
[2018-08-10 00:26] LABS: URINE BACTERIA RARE (NEG); URINE EPITHELIAL CELLS 0 - 2 /hpf (0-5); URINE RBC 0 - 2 /hpf (0-2)
[2018-08-10] MEDS ORDERED: Morphine 4 mg/ml ISec IVP STA (00:45)
[2018-08-10] MEDS ORDERED: Iohexol 350 MG/100 ML VIAL ONE (00:48)
--- NOTE | 2018-08-10 03:02 | CP.PCM.HP ---
<Dennis Santos - Last Filed: 08/10/18 06:15> History of Present Illness - History of Present Illness History of Present Illness: Dennis Santos DO PGY-1, H&P for hospitalist CC: abdominal distension, leg swelling This is a 48 year old female with PMH of stage 4 breast cancer with mets to the bone, liver who presented to the ED with complaints of worsening RUQ abdominal pain with distension for the past week, and leg swelling over the past 3 days. Pt describes the abdominal pain as a tightness, and feeling of "full stomach" which started around the RUQ and is now along the right flank. Pt states that the pain is worse when she stands, sits, or lays on her sides, and is better when she lays on her back. Pt endorses one episode of nonbloody nonbilious vomiting after eating a "bad omelette," earlier today and has been tolerating food since then. She also reports shortness of breath for the past week, which only comes on when she walks up the stairs and is relieved by rest. She denies fever, blurry vision, photophobia, chest pain, cough, diarrhea, hematochezia, hematemesis, paresthesias, leg pain, bleeding or bruising, sick contacts. She denies any change in the color of her skin. Pt endorses chronic lethargy which has been worsening over the past week. Pt reports that she returned from a month long trip in [place] today. She states that nobody was ill there, and that she only drank boiled water and consumed home meals. In the ED, pt received zofran 4 mg IVP, and Morphine 4 mg IVP. Pt was seen and examined in the ED. Pt is resting comfortably, and is has no complaints except for abdominal distension at this time. PMD: [facility] (Dr. Bob/Dr. Luke) Oncologist: Dr. Mak PMH: stage 4 breast cancer (records show ER/MS positive, Her2 negative), diagnosed in 2016, with progression to mets to bone and liver. Pt has not had chemotherapy infusion therapy or radiation therapy in the past. No treatment with mastectomy. No genetic testing. Pt was taking Tamoxifen for 6 months after diagnosis in 2016, which was then changed to arimedex (anastrozole) (which she continued for 1 year). Her oncologist then changed the medication to Ibrance ( palbociclib) with Letrozole (anastrozole) which she is currently on. PSH: right chest portacath placement in 2016, breast biopsy 2016, sacral biopsy 2016. Meds: Ibrance cap 125 mg for 21 days followed by 7 days off, Letrozole 2.5 mg QD , Calcium TID, Xgeva, vitamin B complex, Vitamin c FHx: Pt reports that her parents are first cousins. (+) history of breast cancer on maternal side, who at age 32. Pt states that her father's sister had breast cancer diagnosed at age 17, and is currently alive at age 80. Social Hx: Denies history of smoking or etoh use. Pt lives in [place] with her . Has a 24 year old son and 21 year old female, neither of whom have had any genetic testing. Present on Admission - Present on Admission Any Indicators Present on Admission: No Review of Systems - Review of Systems All systems: reviewed and no additional remarkable complaints except (as per HPI ) Past Patient History - Infectious Disease Hx of Infectious Diseases: None - Past Medical History & Family History Past Medical History?: Yes - Past Social History Smoking Status: Never Smoked - CARDIAC Hx Cardiac Disorders: No - PULMONARY Hx Respiratory Disorders: No - NEUROLOGICAL Hx Neurological Disorder: No - HEENT Hx HEENT Problems: No - ENDOCRINE/METABOLIC Hx Endocrine Disorders: No - HEMATOLOGICAL/ONCOLOGICAL Hx Blood Disorders: Yes Hx Cancer: Yes (LEFT BREAST CANCER with mets) Other/Comment: Left breast CA stage 4. Metastatic CA to Bone, Lung and Liver. - INTEGUMENTARY Hx Dermatological Problems: Yes Other/Comment: RASH FROM BIOPSY ON LEFT BREAST - MUSCULOSKELETAL/RHEUMATOLOGICAL Hx Falls: No - GASTROINTESTINAL Hx Gastrointestinal Disorders: No - GENITOURINARY/GYNECOLOGICAL Other/Comment: induced menopause 2016 r/t chemo therapy - PSYCHIATRIC Hx Psychophysiologic Disorder: No Hx Substance Use: No - SURGICAL HISTORY Hx Breast Biopsy: Yes Other/Comment: SURGERY ON EAR. Port-a-Cath Placement right chest - ANESTHESIA Hx Anesthesia: Yes Hx Anesthesia Reactions: No Hx Malignant Hyperthermia: No Meds Allergies/Adverse Reactions: Allergies Allergy/AdvReac Type Severity Reaction Status Date / Time No Known Allergies Allergy Verified 06/22/18 14:20 Physical Exam - Constitutional Appears: Non-toxic, No Acute Distress - Head Exam Head Exam: ATRAUMATIC, NORMAL INSPECTION, NORMOCEPHALIC - Eye Exam Eye Exam: EOMI, PERRL, Scleral icterus Additional comments: (+) conjunctival pallor - ENT Exam ENT Exam: Mucous Membranes Moist, Normal Oropharynx - Neck Exam Neck exam: Positive for: Lymphadenopathy ((+) 1 palpable anterior cervical lymph node, nontender, approximately 1 by 1 cm in size), Normal Inspection. Negative for: Tenderness Additional comments: trachea is midline - Respiratory Exam Respiratory Exam: Clear to Auscultation Bilateral, NORMAL BREATHING PATTERN. absent: Rales, Rhonchi, Wheezes, Respiratory Distress - Cardiovascular Exam Cardiovascular Exam: REGULAR RHYTHM, +S1, +S2. absent: Diastolic murmur, Systolic Murmur Additional comments: (+) 3+ dorsal pedal and radial pulses bilateral extremities - GI/Abdominal Exam GI & Abdominal Exam: Distended, Normal Bowel Sounds, Organomegaly (liver edge is palpable at approximately 10 cm under the right costophrenic angle, splenic edge is palpable at approximately 6 cm under the left costophrenic angle), Soft , Tenderness ((+) RUQ tenderness). absent: Guarding, Pulsatile Mass, Rebound - Extremities Exam Extremities exam: Positive for: pedal pulses present. Negative for: calf tenderness, tenderness Additional comments: (+) nonpitting edema in bilateral lower extremities; no erythema, or signs of infection - Back Exam Back exam: NORMAL INSPECTION. absent: CVA tenderness (L), CVA tenderness (R), vertebral tenderness - Neurological Exam Neurological exam: Alert, Oriented x3 - Psychiatric Exam Psychiatric exam: Normal Affect, Normal Mood - Skin Skin Exam: Dry, Warm Additional comments: (+) jaundice Results - Vital Signs Recent Vital Signs: Last Vital Signs Temp 98 F 08/10/18 01:12 Pulse 88 08/10/18 02:11 Resp 18 08/10/18 02:11 BP 110/64 08/10/18 01:12 Pulse Ox 100 08/10/18 02:11 - Labs Result Diagrams: 08/09/18 22:30 08/09/18 22:30 Assessment & Plan - Assessment and Plan (Free Text) Assessment: This is a 48 year old female with PMH of stage 4 breast cancer with mets to the bone, liver who presented to the ED with complaints of worsening RUQ abdominal pain with distension and SOB for the past week, with leg swelling over the past 3 days. In the ED, abdominal CT and abdominal US were ordered. She received morphine 4 mg IVP, zofran 4 mg IVP and IVF. Bilateral lower extremity doppler studies were prelim negative at that time. Pt is admitted to inpatient med/ surg. Plan: Intractable abdominal pain secondary to stage 4 breast ca with known mets to the liver, and bone. - Abdominal US shows enlarged liver with diffuse hepatic lesions consistent with metastasis. Nonspecific gallbladder wall edema and thickening without stones or biliary obstruction. (see full report) - Abdominal CT with IV contrast shows: 1.Enlarged liver with extensive metastatic disease. 2. Mild narrowing of the main portal vein which is patent. Multiple upper abdominal and left retroperitoneal collateral vessels. --Findings suggest underlying portal hypertension. 3. Mild-moderate abdominal and pelvic free fluid, increased since prior study. 4. Diffuse osseous metastatic disease. 5. Subtle hypodense areas within the spleen. Possible metastasis cannot be excluded. - f/u echocardiogram - zofran 4 mg IVP Q4H PRN nausea - Morphine 2 mg IVP Q4H prn abdominal pain - Total bilirubin is 2.1, f/u direct bilirubin - GI consulted, recs appreciated Transaminitis; likely due to liver metastasis - pt is hemodynamically stable - AST/ALT/ALP of 365/118/466 - avoid hepatotaxic medications - f/u hepatitis panel Anemia; likely due to chronic disease, medication side effect - Hgb is 7.8 - f/u ferritin, tibc, iron, vitamin b 12, folate - f/u peripheral blood smear evaluation by pathology Stage 4 breast ca with known mets to the liver, and bone - continue home Ibrance and Letrozole - Dr. Mak, oncology consulted, recs appreciated - Palliative care consulted, recs appreciated Case was reviewed and discussed with attending physician, Dr. Monzon <Julian Monzon - Last Filed: 08/10/18 06:51> Results - Vital Signs Recent Vital Signs: Last Vital Signs Temp 98.5 F 08/10/18 03:42 Pulse 81 08/10/18 03:42 Resp 18 08/10/18 03:42 BP 96/52 L 08/10/18 03:42 Pulse Ox 100 08/10/18 02:45 - Labs Result Diagrams: 08/09/18 22:30 08/09/18 22:30 Attending/Attestation - Attestation I have personally seen and examined this patient.: Yes I have fully participated in the care of the patient.: Yes I have reviewed all pertinent clinical information: Yes
[2018-08-10 04:14] VITALS: BMI 27.1
[2018-08-10] MEDS: Morphine 2 mg/ml ISec IVP PRN (04:19)
[2018-08-10] MEDS: Sodium Chloride 0.9% 1,000 ML IV SCH (06:14)
[2018-08-10 06:46] LABS: BASO # 0.02 K/mm3 (0.0-2.0); BASO % 0.6 % (0.0-3.0); EOS % 0.6 % (1.5-5.0); GRAN # 1.67 (1.4-6.5); GRAN % 50.2 % (50.0-68.0); LYMPH # 1.2 (1.2-3.4); LYMPH % 34.8 % (22.0-35.0); MEAN CELL VOLUME 100.5 fl (80.0-105.0); MEAN CORPUSCULAR HEMOGLOBIN 33.7 pg (25.0-35.0); MEAN CORPUSCULAR HGB CONC 33.5 g/dl (31.0-37.0); MEAN PLATELET VOLUME 8.7 fl (7.0-11.0); MONO # 0.5 (0.1-0.6); MONO % 13.8 % (1.0-6.0); RBC 1.96 10^6/uL (3.5-6.1); RED CELL DISTRIBUTION WIDTH 20.1 % (11.5-14.5); WHITE BLOOD COUNT 3.3 10^3/ul (4.5-11.0)
[2018-08-10 07:02] LABS: HEMOGLOBIN 6.6 g/dL (12.0-16.0)
[2018-08-10 07:10] LABS: IRON 118 ug/dL (45-180)
[2018-08-10 07:16] LABS: ALBUMIN 2.8 g/dL (3.0-4.8); ALT/SGPT 102 U/L (7-56); AST/SGOT 297 U/L (14-36); BLOOD UREA NITROGEN 7 mg/dL (7-21); CALCIUM 7.8 mg/dL (8.4-10.5); GFR NON-AFRICAN AMERICAN > 60
[2018-08-10 07:19] LABS: % IRON SATURATION 56 % (20-55); TOTAL IRON BINDING CAPACITY 209 ug/dL (265-497)
--- NOTE | 2018-08-10 09:21 | RAD ---
Date of service: 08/09/2018 HISTORY: abd pain COMPARISON: Portable chest 04/25/2018. FINDINGS: LUNGS: No active pulmonary disease. Right MediPort unchanged in position. PLEURA: No significant pleural effusion identified, no pneumothorax apparent. CARDIOVASCULAR: Normal. OSSEOUS STRUCTURES: No significant abnormalities. VISUALIZED UPPER ABDOMEN: Right hemidiaphragm elevation unchanged. OTHER FINDINGS: None. IMPRESSION: No interval acute cardiopulmonary disease appreciated. Right hemidiaphragm elevation unchanged.
--- NOTE | 2018-08-10 09:29 | US ---
HISTORY: Leg pain and swelling. Evaluate for DVT PHYSICIAN(S): Drake Marte MD. TECHNIQUE: Duplex sonography and color-flow Doppler with graded compression were used to evaluate the deep venous systems of both lower extremities. FINDINGS: The visualized deep venous systems of both lower extremities are sonographically normal and compressible. Normal wave forms and augmentation are seen. There is no sonographic evidence for deep venous thrombosis in the visualized segments of both lower extremities. IMPRESSION: No sonographic evidence for deep venous thrombosis in the visualized segments of both lower extremities.
--- NOTE | 2018-08-10 09:46 | CARD ---
APPROVED REPORT Date of service: 08/09/2018 EKG Measurement Heart [id number] ID [id number] <Conclusion> Normal sinus rhythm Low voltage QRS Borderline ECG
--- NOTE | 2018-08-10 09:52 | CT ---
Date of service: 08/10/2018 PROCEDURE: CT Abdomen and Pelvis with contrast HISTORY: abd pain COMPARISON: 06/22/2018 TECHNIQUE: Contrast dose: 100 cc of Omni 350 Radiation dose: Total exam DLP = 433 mGy-cm. This CT exam was performed using one or more of the following dose reduction techniques: Automated exposure control, adjustment of the mA and/or kV according to patient size, and/or use of iterative reconstruction technique. FINDINGS: LOWER THORAX: Unremarkable. LIVER: There is diffuse metastatic disease and hepatomegaly. The liver measures 28 cm in height and 24 cm wide. The portal vein is patent. The hepatic veins and IVC are compressed by adjacent metastases. GALLBLADDER AND BILE DUCTS: Unremarkable. PANCREAS: Unremarkable. No gross lesion or ductal dilatation. SPLEEN: Unremarkable. ADRENALS: Unremarkable. No mass. KIDNEYS AND URETERS: Unremarkable. No hydronephrosis. No solid mass. VASCULATURE: Unremarkable. No aortic aneurysm. BOWEL: Unremarkable. No obstruction. No gross mural thickening. APPENDIX: Normal appendix. PERITONEUM: There is a moderate volume of ascites in the pelvis LYMPH NODES: Unremarkable. No enlarged lymph nodes. BLADDER: Unremarkable. REPRODUCTIVE: Unremarkable. BONES: Diffuse bony metastatic disease OTHER FINDINGS: The report concurs with the preliminary [facility] report IMPRESSION: There is diffuse metastatic disease and hepatomegaly. The liver measures 28 cm in height and 24 cm wide. The portal vein is patent. The hepatic veins and IVC are compressed by adjacent metastases. Diffuse bony metastatic disease. Moderate ascites in the pelvis
[2018-08-10] MEDS ORDERED: [UNRECOGNIZED DRUG - OTHER] PO SCH (10:00)
[2018-08-10] MEDS ORDERED: CALCIUM CARBONATE PO SCH (10:00)
[2018-08-10] MEDS ORDERED: VITAMIN D3 E PO SCH (10:00)
[2018-08-10] MEDS ORDERED: PALBOCICLIB 125 MG PO SCH (10:00)
[2018-08-10] MEDS: Cholecalciferol 400 Intl Units Tab PO SCH (10:15)
[2018-08-10] MEDS: Multivitamin Therapeutic Tab PO SCH ×2 (10:15→10:22)
--- NOTE | 2018-08-10 11:19 | US ---
Date of service: 08/10/2018 HISTORY: abdominal pain COMPARISON: Abdomen pelvis CT 06/22/2018. TECHNIQUE: Sonographic evaluation of the abdomen. FINDINGS: LIVER: Measures 23.8 cm. Normal echogenicity of the liver parenchyma. Hepatomegaly is reiterated. Heterogeneous echotexture is appreciated with nodular lucencies scattered throughout the liver compatible with the patient's prior CT presentation of innumerable hepatic masses. Trace perihepatic ascites noted. GALLBLADDER: The gallbladder is completely contracted limiting its evaluation. No definite cholelith appreciated. No pericolic fluid collection identified. COMMON BILE DUCT: Measures 2.0 mm. No stones. No dilatation. PANCREAS: The tail of the pancreas is obscured by overlying bowel gas with remainder unremarkable. RIGHT KIDNEY: Measures 10.4cm. Normal echogenicity. No calculus, mass, or hydronephrosis. LEFT KIDNEY: Measures 11.4cm. Normal echogenicity. No calculus, mass, or hydronephrosis. SPLEEN: Normal in size and contour. No mass. AORTA: No aneurysmal dilatation. IVC: Unremarkable. OTHER FINDINGS: None. IMPRESSION: 1. Metastasis again suggested throughout the liver without gross intrahepatic biliary dilatation evident. Hepatomegaly reiterated. 2. Completely contracted gallbladder limits interpretation as well. No cholelithiasis or pericholecystic fluid collection evident. CBD caliber normal. 3. Partial imaging of the pancreas as per above. 4. Trace perihepatic ascites. Concordant preliminary report from [facility], 08/10/2018.
[2018-08-10 12:41] LABS: HEPATITIS B SURFACE AG Negative (NEGATIVE)
[2018-08-10 12:46] LABS: HEPATITIS A IGM NEGATIVE (NEGATIVE); HEPATITIS B CORE AB NEGATIVE (NEGATIVE)
--- NOTE | 2018-08-10 12:54 | CP.PCM.CON ---
<Edenilson Fuentes - Last Filed: 08/10/18 16:57> History of Present Illness - History of Present Illness History of Present Illness: GI Consult Note for Dr. Cooley's Service - Earl PGY2 Reason for Consult: Hepatic Metastatic Disease/Elevated Total Bilirubin Mrs. Woods is a 48 year old female with a past medical history significant for Stage IV Invasive Ductal Carcinoma (HER2 negative) with hepatic and osseous metastasis who presents with epigastric abdominal pain that began one week ago while patient was visiting [facility]. Patient reports that last week after eating a large meal, she began to immediately experience a sharp, constant, 7/10 , non-radiating epigastric/RUQ abdominal pain. With this, she became nauseous and reports one episode of NBNB vomiting. Because she was in [facility], she decided to wait until her return to [place] before being evaluated. She endorses that the pain subsided for several days after presentation but reemerged on her flight home after eating an omelette. She denies ever having this in the past. Currently, she denies any recent illness, sick contacts, changes in diet, fevers, chills, headache, chest pain, SOB, cough, constipation , diarrhea, hematemesis, melena, hematochezia, changes in urine output, or skin changes. Of note, in the ED patient was found to be anemic on CBC and is currently being transfused two units of pRBC's. PMH: As stated above PSH: right chest portacath placement in 2016, breast biopsy 2016, sacral biopsy 2016 Family History: Maternal Grandmother and Maternal Great Grandmother-Breast Cancer Social History: Denies any tobacco, alcohol or illicit drug use; Lives at home in [place] Allergies: NKDA Home Medications: As per JAN PMD: [facility] Oncologist: Dr. Franklyn Mak Review of Systems - Review of Systems Review of Systems: As stated in HPI, otherwise negative Past Patient History - Infectious Disease Hx of Infectious Diseases: None - Past Medical History & Family History Past Medical History?: Yes - Past Social History Smoking Status: Never Smoked - CARDIAC Hx Cardiac Disorders: No - PULMONARY Hx Respiratory Disorders: No - NEUROLOGICAL Hx Neurological Disorder: No - HEENT Hx HEENT Problems: No - ENDOCRINE/METABOLIC Hx Endocrine Disorders: No - HEMATOLOGICAL/ONCOLOGICAL Hx Blood Disorders: Yes Hx Cancer: Yes (LEFT BREAST CANCER with mets) Other/Comment: Left breast CA stage 4. Metastatic CA to Bone, Lung and Liver. - INTEGUMENTARY Hx Dermatological Problems: Yes Other/Comment: RASH FROM BIOPSY ON LEFT BREAST - MUSCULOSKELETAL/RHEUMATOLOGICAL Hx Falls: No - GASTROINTESTINAL Hx Gastrointestinal Disorders: No - GENITOURINARY/GYNECOLOGICAL Other/Comment: induced menopause 2016 r/t chemo therapy - PSYCHIATRIC Hx Psychophysiologic Disorder: No Hx Substance Use: No - SURGICAL HISTORY Hx Breast Biopsy: Yes Other/Comment: SURGERY ON EAR. Port-a-Cath Placement right chest - ANESTHESIA Hx Anesthesia: Yes Hx Anesthesia Reactions: No Hx Malignant Hyperthermia: No Meds Allergies/Adverse Reactions: Allergies Allergy/AdvReac Type Severity Reaction Status Date / Time No Known Allergies Allergy Verified 06/22/18 14:20 - Medications Medications: Current Medications Calcium Carbonate (Oscal) 500 mg PO DAILY [facility] Last Admin: 08/10/18 10:15 Dose: 500 mg Heparin Sodium (Porcine) (Heparin) 5,000 units SC Q8 [facility] PRN Reason: Protocol Last Admin: 08/10/18 06:13 Dose: 5,000 units Sodium Chloride (Sodium Chloride 0.9%) 1,000 mls @ 100 mls/hr IV .Q10H [facility] Last Admin: 08/10/18 06:14 Dose: 100 mls/hr Letrozole (Femara) 2.5 mg PO DAILY [facility] Last Admin: 08/10/18 10:16 Dose: 2.5 mg Morphine Sulfate (Morphine) 2 mg IVP Q4H PRN PRN Reason: Pain, moderate (4-7) Last Admin: 08/10/18 04:19 Dose: 2 mg Multivitamins (Thera Tab) 1 tab PO DAILY [facility] Last Admin: 08/10/18 10:22 Dose: Not Given Non-Formulary Medication (Palbociclib [Ibrance]) 125 mg PO DAILY [facility] Ondansetron HCl (Zofran Inj) 4 mg IVP Q4H PRN PRN Reason: Nausea/Vomiting Pantoprazole Sodium (Protonix Ec Tab) 40 mg PO ACB [facility] Vitamin D (Vitamin D 400 Intl Units Tab) 400 intlu PO DAILY [facility] Last Admin: 08/10/18 10:15 Dose: 400 intlu Physical Exam - Constitutional Appears: Non-toxic, No Acute Distress - Head Exam Head Exam: ATRAUMATIC, NORMOCEPHALIC - Eye Exam Eye Exam: EOMI - ENT Exam ENT Exam: Mucous Membranes Moist - Neck Exam Neck exam: Positive for: Full Rom - Respiratory Exam Respiratory Exam: NORMAL BREATHING PATTERN. absent: Accessory Muscle Use, Respiratory Distress - Cardiovascular Exam Cardiovascular Exam: RRR, +S1, +S2 - GI/Abdominal Exam GI & Abdominal Exam: Distended, Normal Bowel Sounds, Organomegaly (Moderate Hepatosplenomegaly), Soft. absent: Diminished Bowel Sounds, Firm, Guarding, Hernia, Hyperactive Bowel Sounds, Hypoactive Bowel Sounds, Mass, Pulsatile Mass , Rebound, Rigid, Tenderness - Rectal Exam Rectal Exam: NORMAL INSPECTION. absent: Deferred, Black Stool, Bloody Stool, Hemorrhoids, Fecal Impaction Additional comments: FOBT negative at bedside; No gross blood or maroon/melanotic stools in rectal vault - Extremities Exam Extremities exam: Negative for: calf tenderness - Neurological Exam Neurological exam: Alert, Oriented x3 - Psychiatric Exam Psychiatric exam: Normal Affect, Normal Mood - Skin Skin Exam: Dry, Intact, Normal Color, Warm Results - Vital Signs Recent Vital Signs: Last Vital Signs Temp 98.4 F 08/10/18 11:55 Pulse 92 H 08/10/18 11:55 Resp 18 08/10/18 11:55 BP 107/63 08/10/18 11:55 Pulse Ox 100 08/10/18 06:00 - Labs Result Diagrams: 08/10/18 06:15 08/10/18 06:15 Labs: Laboratory Results - last 24 hr 08/10/18 08/10/18 08/10/18 06:15 06:15 06:15 WBC 3.3 L RBC 1.96 L Hgb 6.6 L* Hct 19.7 L* MCV 100.5 MCH 33.7 MCHC 33.5 RDW 20.1 H Plt Count 164 MPV 8.7 Gran % 50.2 Lymph % (Auto) 34.8 Howell % (Auto) 13.8 H Eos % (Auto) 0.6 L Baso % (Auto) 0.6 Gran # 1.67 Lymph # (Auto) 1.2 Howell # (Auto) 0.5 Eos # (Auto) 0.0 Baso # (Auto) 0.02 Differential Comment Cancelled Sodium 136 Potassium 4.0 Chloride 104 Carbon Dioxide 25 Anion Gap 11 BUN 7 Creatinine 0.5 L Est GFR ( Amer) > 60 Est GFR (Non-Af Amer) > 60 Random Glucose 79 Calcium 7.8 L Phosphorus 2.2 L Magnesium 2.3 H Iron 118 TIBC 209 L % Saturation 56 H Total Bilirubin 1.7 H Direct Bilirubin 1.0 H AST 297 H ALT 102 H Alkaline Phosphatase 388 H Total Protein 5.5 L Albumin 2.8 L Globulin 2.8 Albumin/Globulin Ratio 1.0 L Hepatitis A IgM Ab Hep Bs Antigen Hep B Core IgM Ab 08/10/18 06:15 WBC RBC Hgb Hct MCV MCH MCHC RDW Plt Count MPV Gran % Lymph % (Auto) Howell % (Auto) Eos % (Auto) Baso % (Auto) Gran # Lymph # (Auto) Howell # (Auto) Eos # (Auto) Baso # (Auto) Differential Comment Sodium Potassium Chloride Carbon Dioxide Anion Gap BUN Creatinine Est GFR ( Amer) Est GFR (Non-Af Amer) Random Glucose Calcium Phosphorus Magnesium Iron TIBC % Saturation Total Bilirubin Direct Bilirubin AST ALT Alkaline Phosphatase Total Protein Albumin Globulin Albumin/Globulin Ratio Hepatitis A IgM Ab Negative Hep Bs Antigen Negative Hep B Core IgM Ab Negative Assessment & Plan - Assessment and Plan (Free Text) Assessment: 48 year old female with a past medical history significant for Stage IV Invasive Ductal Carcinoma (HER2 negative) with hepatic and osseous metastasis who presents with epigastric abdominal pain that began one week ago while patient was visiting [facility]. Plan: -Abdominal US showed hepatic metastatic disease, completely contracted GB ( limits evaluation) without any cholelithiasis or cholecystitis evident, unremarkable CBD at 2mm, and trace ascites -CT Abdomen/Pelvis showed diffuse metastatic disease and hepatomegaly, portal vein patency, hepatic veins and IVC compression by adjacent metastases, diffuse bony metastatic disease and moderate ascites in the pelvis -Continue pain control and IVF -Continue Zofran PRN for N/V -Regular Diet -Continue PPI daily -Currently receiving transfusion of two units of pRBC's GI Disposition: Several etiologies being considered for acute anemia, including GI hemorrhage. Will need EGD to rule out upper GI bleed. Will discuss with patients primary, her oncologist Dr. Mak, prior to taking for endoscopy. Patient seen and case discussed with attending, Dr. Cooley. - Date & Time Date: 08/10/18 Time: 12:54 <Bay Cooley V - Last Filed: 09/13/18 23:59> Meds - Medications Medications: Current Medications Calcium Carbonate (Oscal) 500 mg PO DAILY [facility] Last Admin: 08/10/18 10:15 Dose: 500 mg Heparin Sodium (Porcine) (Heparin) 5,000 units SC Q8 [facility] PRN Reason: Protocol Last Admin: 08/10/18 21:03 Dose: 5,000 units Sodium Chloride (Sodium Chloride 0.9%) 1,000 mls @ 100 mls/hr IV .Q10H [facility] Last Admin: 08/10/18 06:14 Dose: 100 mls/hr Letrozole (Femara) 2.5 mg PO DAILY [facility] Last Admin: 08/10/18 10:16 Dose: 2.5 mg Morphine Sulfate (Morphine) 2 mg IVP Q4H PRN PRN Reason: Pain, moderate (4-7) Last Admin: 08/10/18 04:19 Dose: 2 mg Non-Formulary Medication (Palbociclib [Ibrance]) 125 mg PO DAILY [facility] Ondansetron HCl (Zofran Inj) 4 mg IVP Q4H PRN PRN Reason: Nausea/Vomiting Pantoprazole Sodium (Protonix Ec Tab) 40 mg PO ACB [facility] Vitamin D (Vitamin D 400 Intl Units Tab) 400 intlu PO DAILY [facility] Last Admin: 08/10/18 10:15 Dose: 400 intlu Results - Vital Signs Recent Vital Signs: Last Vital Signs Temp 98.1 F 08/10/18 22:06 Pulse 90 08/10/18 22:06 Resp 18 08/10/18 22:06 BP 106/58 L 08/10/18 22:06 Pulse Ox 97 08/10/18 22:06 - Labs Result Diagrams: 08/10/18 22:15 08/10/18 06:15 Labs: Laboratory Results - last 24 hr 08/10/18 08/10/18 08/10/18 06:15 06:15 06:15 WBC 3.3 L RBC 1.96 L Hgb 6.6 L* Hct 19.7 L* MCV 100.5 MCH 33.7 MCHC 33.5 RDW 20.1 H Plt Count 164 MPV 8.7 Gran % 50.2 Lymph % (Auto) 34.8 Howell % (Auto) 13.8 H Eos % (Auto) 0.6 L Baso % (Auto) 0.6 Gran # 1.67 Lymph # (Auto) 1.2 Howell # (Auto) 0.5 Eos # (Auto) 0.0 Baso # (Auto) 0.02 Differential Comment Cancelled Sodium 136 Potassium 4.0 Chloride 104 Carbon Dioxide 25 Anion Gap 11 BUN 7 Creatinine 0.5 L Est GFR ( Amer) > 60 Est GFR (Non-Af Amer) > 60 Random Glucose 79 Calcium 7.8 L Phosphorus 2.2 L Magnesium 2.3 H Iron 118 TIBC 209 L % Saturation 56 H Ferritin 4360.0 Total Bilirubin 1.7 H Direct Bilirubin 1.0 H AST 297 H ALT 102 H Alkaline Phosphatase 388 H Total Protein 5.5 L Albumin 2.8 L Globulin 2.8 Albumin/Globulin Ratio 1.0 L Hepatitis A IgM Ab Hep Bs Antigen Hep B Core IgM Ab Hepatitis C Antibody 08/10/18 08/10/18 06:15 22:15 WBC 3.7 L RBC 2.74 L Hgb 8.8 L D Hct 26.1 L MCV 95.3 D MCH 32.1 MCHC 33.7 RDW 20.2 H Plt Count 158 MPV 8.4 Gran % 52.3 Lymph % (Auto) 29.8 Howell % (Auto) 16.9 H Eos % (Auto) 0.5 L Baso % (Auto) 0.5 Gran # 1.94 Lymph # (Auto) 1.1 L Howell # (Auto) 0.6 Eos # (Auto) 0.0 Baso # (Auto) 0.02 Differential Comment Sodium Potassium Chloride Carbon Dioxide Anion Gap BUN Creatinine Est GFR ( Amer) Est GFR (Non-Af Amer) Random Glucose Calcium Phosphorus Magnesium Iron TIBC % Saturation Ferritin Total Bilirubin Direct Bilirubin AST ALT Alkaline Phosphatase Total Protein Albumin Globulin Albumin/Globulin Ratio Hepatitis A IgM Ab Negative Hep Bs Antigen Negative Hep B Core IgM Ab Negative Hepatitis C Antibody Negative Attending/Attestation - Attestation I have personally seen and examined this patient.: Yes I have fully participated in the care of the patient.: Yes I have reviewed all pertinent clinical information: Yes Notes (Text): This is an addendum to GI consult report dictated by the Executive Housekeeper.The patient was seen and evaluated earlier. Medical records, lab studies, imagings were reviewed. Last 24 hours events reviewed. Agreed with the above treatment plan as outlined in Executive Housekeeper 's notes with the addition of the following This patient with metastatic breast cancer was admitted epigastric pain and severe anemia patient has large nodular liver mildly tender on deep palpitation status post transfusion on PPI hematological followup for EGD AM discussed with dr gonzales 08/10/18 23:57
[2018-08-10 12:58] LABS: HEPATITIS C ANTIBODY NEGATIVE (NEGATIVE)
--- NOTE | 2018-08-10 14:46 | CARD ---
APPROVED REPORT Date of service: 08/10/2018 EXAM: Two-dimensional and M-mode echocardiogram with Doppler and color Doppler. INDICATION Pulmonary Hypertention 2D DIMENSIONS Left Atrium (2D)3.1 (1.6-4.0cm)IVSd0.9 (0.7-1.1cm) LVDd3.8 (3.9-5.9cm)PWd0.9 (0.7-1.1cm) LVDs2.5 (2.5-4.0cm)FS (%) 34.0 % LVEF (%)63.7 (>50%) M-Mode DIMENSIONS Aortic Root2.50 (2.2-3.7cm)Aortic Cusp Exc.1.60 (1.5-2.0cm) Aortic Valve AoV Peak Aenfpvow186.0cm/Chelo Peak GR.12mmHg Mitral Valve MV E Lhstigey01.7cm/sMV A Nykchkht48.6cm/sE/A ratio1.0 TDI E/Lateral E'0.0E/Medial E'0.0 Tricuspid Valve TR Peak Hedxeraw111pe/sRAP [id number] Peak Gr.20mmHg [id number] LEFT VENTRICLE The left ventricle is normal size. There is normal left ventricular wall thickness. The left ventricular function is normal.EF-65% There is normal LV segmental wall motion. The left ventricular diastolic function is normal. No left ventricle thrombus noted on this study. There is no ventricular septal defect visualized. There is no left ventricular aneurysm. There is no mass noted in the left ventricle. RIGHT VENTRICLE The right ventricle is normal size. There is normal right ventricular wall thickness. The right ventricular systolic function is normal. ATRIA The left atrium size is normal. The right atrium size is normal. The interatrial septum is intact with no evidence for an atrial septal defect. AORTIC VALVE The aortic valve is not well visualized. The aortic valve is thickened but opens well. No aortic regurgitation is present. There is no aortic valvular stenosis. There is no aortic valvular vegetation. MITRAL VALVE The mitral valve is thickened but opens well. Mitral regurgitation is trace. There is no mitral valve stenosis. There is no evidence of mitral valve prolapse. TRICUSPID VALVE The tricuspid valve leaflets are thickened , but open well. There is mild tricuspid regurgitation.RVSP_30 mmof hg. There is no tricuspid valve stenosis. There is no tricuspid valve prolapse or vegetation. PULMONIC VALVE The pulmonic valve is not well visualized. GREAT VESSELS The aortic root is normal in size. The ascending aorta is normal in size. The pulmonary artery is normal. The IVC is normal in size and collapses >50% with inspiration. PERICARDIAL EFFUSION There is no pleural effusion. There is no pericardial effusion. <Conclusion> Normal chamber Size, EF-65% Trace MR/ Mild TR RVSP-30 mmof Hg ( upper limit Normal) No evidence of pulmonary HTN.
[2018-08-10 22:24] LABS: BASO # 0.02 K/mm3 (0.0-2.0); BASO % 0.5 % (0.0-3.0); EOS % 0.5 % (1.5-5.0); GRAN # 1.94 (1.4-6.5); GRAN % 52.3 % (50.0-68.0); HEMOGLOBIN 8.8 g/dL (12.0-16.0); LYMPH # 1.1 (1.2-3.4); LYMPH % 29.8 % (22.0-35.0); MEAN CELL VOLUME 95.3 fl (80.0-105.0); MEAN CORPUSCULAR HEMOGLOBIN 32.1 pg (25.0-35.0); MEAN CORPUSCULAR HGB CONC 33.7 g/dl (31.0-37.0); MEAN PLATELET VOLUME 8.4 fl (7.0-11.0); MONO # 0.6 (0.1-0.6); MONO % 16.9 % (1.0-6.0); RBC 2.74 10^6/uL (3.5-6.1); RED CELL DISTRIBUTION WIDTH 20.2 % (11.5-14.5); WHITE BLOOD COUNT 3.7 10^3/ul (4.5-11.0)
[2018-08-11] MEDS: Sodium Chloride 0.9% 1,000 ML IV SCH ×2 (01:47→20:56)
[2018-08-11] MEDS ORDERED: Iohexol 350 MG/100 ML VIAL ONE (06:32)
[2018-08-11 06:40] LABS: BASO # 0.02 K/mm3 (0.0-2.0); BASO % 0.5 % (0.0-3.0); EOS % 0.8 % (1.5-5.0); GRAN # 2.06 (1.4-6.5); GRAN % 55.6 % (50.0-68.0); HEMOGLOBIN 9.6 g/dL (12.0-16.0); LYMPH # 1.1 (1.2-3.4); LYMPH % 28.3 % (22.0-35.0); MEAN CORPUSCULAR HEMOGLOBIN 32.4 pg (25.0-35.0); MEAN CORPUSCULAR HGB CONC 33.4 g/dl (31.0-37.0); MONO # 0.6 (0.1-0.6); MONO % 14.8 % (1.0-6.0); RBC 2.96 10^6/uL (3.5-6.1); WHITE BLOOD COUNT 3.7 10^3/ul (4.5-11.0)
[2018-08-11 07:11] LABS: ALBUMIN 2.9 g/dL (3.0-4.8); ALT/SGPT 111 U/L (7-56); AST/SGOT 414 U/L (14-36); BLOOD UREA NITROGEN 7 mg/dL (7-21); CALCIUM 7.5 mg/dL (8.4-10.5); GFR NON-AFRICAN AMERICAN > 60
[2018-08-11] MEDS ORDERED: Multivitamin Vitamin B Complex (Nephro-Vite) Tab PO SCH (08:00)
[2018-08-11] MEDS: Pantoprazole 40 mg EC Tab PO SCH (09:35)
[2018-08-11] MEDS: Cholecalciferol 400 Intl Units Tab PO SCH (09:38)
--- NOTE | 2018-08-11 09:51 | CT ---
Date of service: 08/11/2018 PROCEDURE: CT Chest with contrast (Pulmonary Angiogram) HISTORY: r/o pe COMPARISON: None available. TECHNIQUE: Axial computed tomography images were obtained of the chest in the pulmonary arterial phase of enhancement. Coronal and sagittal reformatted images were created and reviewed. Intravenous contrast dose: 100 cc of Omni 350 Radiation dose: Total exam DLP = 303 mGy-cm. This CT exam was performed using one or more of the following dose reduction techniques: Automated exposure control, adjustment of the mA and/or kV according to patient size, and/or use of iterative reconstruction technique. FINDINGS: PULMONARY ARTERIES: Unremarkable. No pulmonary embolism. AORTA: No acute findings. No thoracic aortic aneurysm. LUNGS: There is some linear scarring or atelectasis at the right lung base. There is a small effusion PLEURAL SPACES: Unremarkable. No effusion or pneumothorax. HEART: Unremarkable. No cardiomegaly. No significant pericardial effusion. LYMPH NODES: No lymphadenopathy. BONES, CHEST WALL: Diffuse bony metastatic disease described previously OTHER FINDINGS: Unremarkable. IMPRESSION: Unremarkable CT pulmonary angiogram. No pulmonary embolus.
--- NOTE | 2018-08-11 10:07 | CP.PCM.PN ---
Subjective - Date & Time of Evaluation Date of Evaluation: 08/11/18 Time of Evaluation: 10:05 - Subjective Subjective: GI Progress Note for Dr. Cooley's Service- Earl, PGY2 Patient seen and assessed at bedside. No acute events overnight noted. Patient otherwise currently denies any fevers, chills, chest pain, SOB, abdominal pain, N/V/D/C, changes in urine output or any skin changes. Objective - Vital Signs/Intake and Output Vital Signs (last 24 hours): Temp Pulse Resp BP Pulse Ox 99 F 91 H 18 110/64 98 08/11/18 06:00 08/11/18 06:00 08/11/18 06:00 08/11/18 06:00 08/11/18 06:00 Intake and Output: 08/11/18 08/11/18 06:59 18:59 Intake Total 2225 180 Balance 2225 180 - Medications Medications: Current Medications Calcium Carbonate (Oscal) 500 mg PO DAILY [facility] Last Admin: 08/11/18 09:36 Dose: 500 mg Heparin Sodium (Porcine) (Heparin) 5,000 units SC Q8 [facility] PRN Reason: Protocol Last Admin: 08/11/18 06:08 Dose: 5,000 units Sodium Chloride (Sodium Chloride 0.9%) 1,000 mls @ 100 mls/hr IV .Q10H [facility] Last Admin: 08/11/18 01:47 Dose: 100 mls/hr Letrozole (Femara) 2.5 mg PO DAILY [facility] Last Admin: 08/11/18 09:35 Dose: 2.5 mg Morphine Sulfate (Morphine) 2 mg IVP Q4H PRN PRN Reason: Pain, moderate (4-7) Last Admin: 08/10/18 04:19 Dose: 2 mg Non-Formulary Medication (Palbociclib [Ibrance]) 125 mg PO DAILY [facility] Ondansetron HCl (Zofran Inj) 4 mg IVP Q4H PRN PRN Reason: Nausea/Vomiting Pantoprazole Sodium (Protonix Ec Tab) 40 mg PO ACB [facility] Last Admin: 08/11/18 09:35 Dose: 40 mg Vitamin D (Vitamin D 400 Intl Units Tab) 400 intlu PO DAILY [facility] Last Admin: 08/11/18 09:38 Dose: 400 intlu - Labs Labs: 08/11/18 06:25 09/14/18 06:25 PT 17.3 SECONDS (9.4-12.5) H 08/09/18 22:30 INR 1.50 08/09/18 22:30 APTT 29.5 Seconds (25.1-36.5) 08/09/18 22:30 Assessment and Plan - Assessment and Plan (Free Text) Assessment: 48 year old female with a past medical history significant for Stage IV Invasive Ductal Carcinoma (HER2 negative) with hepatic and osseous metastasis who presents with epigastric abdominal pain that began one week ago while patient was visiting [facility]. Plan: -Abdominal US showed hepatic metastatic disease, completely contracted GB ( limits evaluation) without any cholelithiasis or cholecystitis evident, unremarkable CBD at 2mm, and trace ascites -CT Abdomen/Pelvis showed diffuse metastatic disease and hepatomegaly, portal vein patency, hepatic veins and IVC compression by adjacent metastases, diffuse bony metastatic disease and moderate ascites in the pelvis -Continue pain control and IVF -Continue Zofran PRN for N/V -Regular Diet -Continue PPI daily -S/P transfusion of two units pRBC's with appropriate response in H/H -H/H currently 9.6/28.7; Will continue to monitor with serial CBC's GI Disposition: Will need EGD to rule out upper GI bleed. Will discuss with patients primary, her oncologist Dr. Mak, prior to taking for endoscopy. Patient seen and case discussed with attending, Dr. Cooley.
--- NOTE | 2018-08-11 15:21 | US ---
Date of service: 08/11/2018 PROCEDURE: Ultrasound Doppler evaluation of the liver. HISTORY: Hepatic art./portal vein/ r/o budd chiari/obstruct COMPARISON: Comparison is made to the previous CT of the abdomen and pelvis with contrast dated 08/10/2018. TECHNIQUE: Ultrasound Doppler evaluation of the liver was performed. FINDINGS: The portal vein is patent demonstrate normal direction of blood flow. The splenic vein is patent. That hepatic veins are patent. IMPRESSION: The portal vein and the hepatic veins are patent.
[2018-08-11] MEDS ORDERED: Propofol 10 mg/ml Inj (20 ML) ONE (16:23)
[2018-08-11] MEDS ORDERED: Lactated Ringer's 1,000 ML IV SCH (16:45)
--- NOTE | 2018-08-11 20:21 | CP.PCM.PN ---
<Landen Zapata - Last Filed: 08/11/18 20:18> Subjective - Date & Time of Evaluation Date of Evaluation: 08/11/18 Time of Evaluation: 07:00 - Subjective Subjective: Landen Zapata PGY1 Medicine Progress Note for Dr. Carvajal Patient was seen and examined at bedside this morning. She said her abdominal pain improved. It feels more like abdominal discomfort. Patient also has mild shortness of breath likely due to hepatomegaly pushing up against diaphragm. Otherwise, denies cp, bowel/bladder changes, n/v/d. No overnight changes. A full 12 point ROS was conducted and unremarkable except as stated above. Objective - Vital Signs/Intake and Output Vital Signs (last 24 hours): Temp Pulse Resp BP Pulse Ox 97.8 F 86 18 107/65 100 08/11/18 17:38 08/11/18 17:38 08/11/18 17:38 08/11/18 17:38 08/11/18 17:38 Intake and Output: 08/11/18 08/12/18 18:59 06:59 Intake Total 180 600 Balance 180 600 - Medications Medications: Current Medications Calcium Carbonate (Oscal) 500 mg PO DAILY [facility] Last Admin: 08/11/18 09:36 Dose: 500 mg Heparin Sodium (Porcine) (Heparin) 5,000 units SC Q8 [facility] PRN Reason: Protocol Last Admin: 08/11/18 13:45 Dose: Not Given Sodium Chloride (Sodium Chloride 0.9%) 1,000 mls @ 100 mls/hr IV .Q10H [facility] Last Admin: 08/11/18 01:47 Dose: 100 mls/hr Letrozole (Femara) 2.5 mg PO DAILY [facility] Last Admin: 08/11/18 09:35 Dose: 2.5 mg Morphine Sulfate (Morphine) 2 mg IVP Q4H PRN PRN Reason: Pain, moderate (4-7) Last Admin: 08/10/18 04:19 Dose: 2 mg Non-Formulary Medication (Palbociclib [Ibrance]) 125 mg PO DAILY [facility] Ondansetron HCl (Zofran Inj) 4 mg IVP Q4H PRN PRN Reason: Nausea/Vomiting Pantoprazole Sodium (Protonix Ec Tab) 40 mg PO ACB [facility] Last Admin: 08/11/18 09:35 Dose: 40 mg Vitamin D (Vitamin D 400 Intl Units Tab) 400 intlu PO DAILY [facility] Last Admin: 08/11/18 09:38 Dose: 400 intlu - Labs Labs: 08/11/18 06:25 08/11/18 06:25 PT 17.3 SECONDS (9.4-12.5) H 08/09/18 22:30 INR 1.50 08/09/18 22:30 APTT 29.5 Seconds (25.1-36.5) 08/09/18 22:30 - Constitutional Appears: Well, No Acute Distress - Eye Exam Eye Exam: EOMI, Normal appearance, PERRL Pupil Exam: NORMAL ACCOMODATION, PERRL - ENT Exam ENT Exam: Mucous Membranes Moist, Normal Exam - Neck Exam Neck Exam: Full ROM, Normal Inspection. absent: Lymphadenopathy - Respiratory Exam Respiratory Exam: Clear to Ausculation Bilateral, NORMAL BREATHING PATTERN. absent: Rales, Rhonchi, Wheezes - Cardiovascular Exam Cardiovascular Exam: REGULAR RHYTHM, +S1, +S2. absent: Murmur - GI/Abdominal Exam GI & Abdominal Exam: Distended, Tenderness, Normal Bowel Sounds, Organomegaly - Extremities Exam Extremities Exam: Full ROM, Normal Capillary Refill, Normal Inspection. absent : Joint Swelling, Pedal Edema - Neurological Exam Neurological Exam: Alert, Awake, Oriented x3 Neuro motor strength exam: Left Upper Extremity: 5, Right Upper Extremity: 5, Left Lower Extremity: 5, Right Lower Extremity: 5 - Skin Skin Exam: Dry, Intact, Normal Color, Warm Assessment and Plan - Assessment and Plan (Free Text) Assessment: This is a 48 year old female with PMH of stage 4 breast cancer with mets to the bone, liver who presented to the ED with complaints of worsening RUQ abdominal pain with distension and SOB for the past week, with leg swelling over the past 3 days. Patient is admitted for Abdominal Pain and Distention 2/2 Liver Metastasis. Plan: Abdominal Pain 2/2 Stage IV Breast Cancer with Metastasis to Liver - f/u RUQ ultrasound abdomen - GI consulted, recs appreciated. Want to do endoscopy to r/o bleed. - Palliative care consulted, recs appreciated. - Heme/onc consulted, f/u recs. - Abdominal US shows enlarged liver with diffuse hepatic lesions consistent with metastasis. Nonspecific gallbladder wall edema and thickening without stones or biliary obstruction. (see full report) - Abdominal CT with IV contrast shows: 1. Enlarged liver with extensive metastatic disease. 2. Mild narrowing of the main portal vein which is patent. Multiple upper abdominal and left retroperitoneal collateral vessels. --Findings suggest underlying portal hypertension. 3. Mild-moderate abdominal and pelvic free fluid, increased since prior study. 4. Diffuse osseous metastatic disease. 5. Subtle hypodense areas within the spleen. Possible metastasis cannot be excluded. - c/w zofran for nausea - c/w Morphine 2 mg IVP Q4H prn for pain control Transaminitis 2/2 liver metastasis - AST/ALT/ALP of 414/111/448 (uptrending) - avoid hepatotaxic medications Anemia; likely due to chronic disease, medication side effect - Hgb is 9.6 after x2 pRBC transfusion yesterday - stable - peripheral blood smear: no atypical cells Rule out Pulmonary Embolism - CT Angio: Negative for PE - High risk due to malignancy, sob, and hypercoaguable state GI ppx: ptx DVT ppx: heparin Dispo: Monitor patient on the floor. Poor prognosis. Case was discussed and reviewed with Attending Physician, Dr. Carvajal. <Amy Carvajal R - Last Filed: 08/12/18 18:33> Objective - Vital Signs/Intake and Output Vital Signs (last 24 hours): Temp Pulse Resp BP Pulse Ox 98.3 F 91 H 20 112/69 99 08/12/18 14:00 08/12/18 14:00 08/12/18 14:00 08/12/18 15:08 08/12/18 14:00 Intake and Output: 08/12/18 08/12/18 06:59 18:59 Intake Total 1800 600 Balance 1800 600 - Medications Medications: Current Medications Calcium Carbonate (Oscal) 500 mg PO DAILY [facility] Last Admin: 08/12/18 10:43 Dose: 500 mg Furosemide (Lasix) 20 mg IVP DAILY [facility] Last Admin: 08/12/18 15:08 Dose: 20 mg Heparin Sodium (Porcine) (Heparin) 5,000 units SC Q8 [facility] PRN Reason: Protocol Last Admin: 08/12/18 15:03 Dose: 5,000 units Letrozole (Femara) 2.5 mg PO DAILY [facility] Last Admin: 08/12/18 11:10 Dose: 2.5 mg Morphine Sulfate (Morphine) 2 mg IVP Q4H PRN PRN Reason: Pain, moderate (4-7) Last Admin: 08/12/18 10:45 Dose: 2 mg Non-Formulary Medication (Palbociclib [Ibrance]) 125 mg PO DAILY [facility] Last Admin: 08/12/18 15:01 Dose: Not Given Ondansetron HCl (Zofran Inj) 4 mg IVP Q4H PRN PRN Reason: Nausea/Vomiting Pantoprazole Sodium (Protonix Ec Tab) 40 mg PO ACB [facility] Last Admin: 08/12/18 08:00 Dose: 40 mg Vitamin D (Vitamin D 400 Intl Units Tab) 400 intlu PO DAILY [facility] Last Admin: 08/12/18 10:44 Dose: 400 intlu - Labs Labs: 08/12/18 07:00 08/12/18 07:00 PT 17.3 SECONDS (9.4-12.5) H 08/09/18 22:30 INR 1.50 08/09/18 22:30 APTT 29.5 Seconds (25.1-36.5) 08/09/18 22:30 Attending/Attestation - Attestation I have personally seen and examined this patient.: Yes I have fully participated in the care of the patient.: Yes I have reviewed all pertinent clinical information, including history, physical exam and plan: Yes Notes (Text): Patient seen and examined by me at 12:15PM with resident 08/11/18. Case including HPI, physical exam, and assessment and plan discussed with resident. Agree with above with following additions/corrections. Patient is a 48-year-old female with past medical history significant for metastatic stage IV breast cancer with metastases to the liver and bone that presented to emergency room with worsening right upper quadrant pain with distention and leg swelling. Patient states that she is feeling about the same. She states that she is feeling short of breath. Her abdomen does not hurt but feels like there is pressure there. She states that she has had anemia in the past secondary to her immunotherapy and has had to have blood transfusions in the past. She denies any chest pain or palpitations. No nausea or vomiting. No fevers or chills. No dysuria. No diarrhea. Physical exam: General: Awake and alert sitting up in bed in no acute distress HEENT: Normocephalic, atraumatic. Pupils equal reactive. No scleral icterus. Oropharynx is pink. Positive dry mucous membranes. Poor dentition. Neck is supple. Cardiovascular: Normal rhythm. Normal S1, S2. No murmurs, rubs or gallops appreciated Pulmonary: Normal respiratory effort. No rhonchi, rales or wheezing appreciated. Gastrointestinal: Soft, distended. Tender with palpation. Positive bowel sounds all 4 quadrants, no guarding. Positive hepatomegaly Musculoskeletal: Moves all extremities, no calf tenderness. Positive bilateral lower extremity pitting edema Central nervous system: AAOx3. CN2-12 grossly intact. Dermatologic: Skin warm and dry. Positive pallor Assessment and plan: Patient is a 48-year-old female with past medical history significant for metastatic stage IV breast cancer with metastases to the liver and bone that presented to emergency room with worsening right upper quadrant pain with distention and leg swelling. 1. Abdominal distention. Shortness of breath. Likely secondary to ascites. CT abdomen and pelvis per radiologist shows diffuse metastatic disease and hepatomegaly; the liver measures 28 cm in height and 24 cm wide; the portal vein is patent; hepatic veins and IVC are compressed by adjacent metastases; diffuse bony metastatic disease; moderate ascites in the pelvis. Abdominal ultrasound per radiology shows testes cc again suggested throughout the liver without gross intrahepatic biliary dilatation evident, hepatomegaly reiterated, completely contracted gallbladder limits interpretation as well, no cholelithiasis or pericholecystic fluid collection evident, CBD caliber normal, trace hepatic ascites. GI following, recommendations appreciated. Patient for EGD. Abdominal doppler ultrasound ordered. 2. Acute on chronic anemia. May be secondary to medication side effect. Transfuse 2 units packed red blood cells. Follow up repeat CBC 4 hours post last blood transfusion. 3. Transaminitis. Secondary to liver metastases. Continue to monitor. 4. Stage IV metastatic breast cancer with metastases to bone and liver. Hematology/oncology Dr. Mak consulted, follow-up recommendations. Palliative care consulted. Continue home Ibrance and Femara. 5. Bilateral lower extremity edema. Bilateral lower extremity venous Dopplers negative for DVT. Check CTA chest as patient is short of breath and recently traveled to rule out pulmonary embolism. 6. GI/DVT prophylaxis. Protonix and SCDs with early ambulation. Case was discussed in detail with the patient regarding current diagnosis and treatment plan.
--- NOTE | 2018-08-11 21:09 | CP.PCM.CON ---
History of Present Illness - History of Present Illness History of Present Illness: 47 year old female with a history of stage IV breast cancer (ER/AZ positive, HER2 negative), with bone, liver, lung metastasis on systemic therapy (ovarian ablation, Ibrance and endocrine therapy) presenting with fatigue, abdominal pain , found to be anemic and have progressive visceral metastasis. The patient recently returned from [place] and notes to progressive abdominal bloating and RUQ pain. She feels this is exacerbated by large meals and meats. Imaging in concerning for progressive disease in the liver and bone. She is s/p PRBC transfusion and underwent endoscopy by GI with no active signs of upper GI bleeding. Past medical history: stage IV breast cancer (ER/AZ positive, HER2 negative) Past surgical history: None Family history: Denies hematologic and oncologic problems Social history: Denies tobacco, alcohol, and illicit drug use. Allergies: NKA Review of systems: All remaining review of systems including HEENT, cardiovascular, respiratory, gastrointestinal, genitourinary, musculoskeletal, dermatologic, neurologic, and psychiatric are negative unless mentioned in the HPI. Past Patient History - Infectious Disease Hx of Infectious Diseases: None - Past Medical History & Family History Past Medical History?: Yes - Past Social History Smoking Status: Never Smoked - CARDIAC Hx Cardiac Disorders: No - PULMONARY Hx Respiratory Disorders: No - NEUROLOGICAL Hx Neurological Disorder: No - HEENT Hx HEENT Problems: No - ENDOCRINE/METABOLIC Hx Endocrine Disorders: No - HEMATOLOGICAL/ONCOLOGICAL Hx Blood Disorders: Yes Hx Cancer: Yes (LEFT BREAST CANCER with mets) Other/Comment: Left breast CA stage 4. Metastatic CA to Bone, Lung and Liver. - INTEGUMENTARY Hx Dermatological Problems: Yes Other/Comment: RASH FROM BIOPSY ON LEFT BREAST - MUSCULOSKELETAL/RHEUMATOLOGICAL Hx Falls: No - GASTROINTESTINAL Hx Gastrointestinal Disorders: No - GENITOURINARY/GYNECOLOGICAL Other/Comment: induced menopause 2016 r/t chemo therapy - PSYCHIATRIC Hx Psychophysiologic Disorder: No Hx Substance Use: No - SURGICAL HISTORY Hx Surgeries: Yes - ANESTHESIA Hx Anesthesia Reactions: No Hx Malignant Hyperthermia: No Meds Allergies/Adverse Reactions: Allergies Allergy/AdvReac Type Severity Reaction Status Date / Time No Known Allergies Allergy Verified 06/22/18 14:20 - Medications Medications: Current Medications Calcium Carbonate (Oscal) 500 mg PO DAILY [facility] Last Admin: 08/11/18 09:36 Dose: 500 mg Heparin Sodium (Porcine) (Heparin) 5,000 units SC Q8 [facility] PRN Reason: Protocol Last Admin: 08/11/18 13:45 Dose: Not Given Sodium Chloride (Sodium Chloride 0.9%) 1,000 mls @ 100 mls/hr IV .Q10H [facility] Last Admin: 08/11/18 01:47 Dose: 100 mls/hr Letrozole (Femara) 2.5 mg PO DAILY [facility] Last Admin: 08/11/18 09:35 Dose: 2.5 mg Morphine Sulfate (Morphine) 2 mg IVP Q4H PRN PRN Reason: Pain, moderate (4-7) Last Admin: 08/10/18 04:19 Dose: 2 mg Non-Formulary Medication (Palbociclib [Ibrance]) 125 mg PO DAILY [facility] Ondansetron HCl (Zofran Inj) 4 mg IVP Q4H PRN PRN Reason: Nausea/Vomiting Pantoprazole Sodium (Protonix Ec Tab) 40 mg PO ACB [facility] Last Admin: 08/11/18 09:35 Dose: 40 mg Vitamin D (Vitamin D 400 Intl Units Tab) 400 intlu PO DAILY [facility] Last Admin: 08/11/18 09:38 Dose: 400 intlu Physical Exam - Head Exam Head Exam: ATRAUMATIC - Eye Exam Eye Exam: Normal appearance - ENT Exam ENT Exam: Mucous Membranes Dry - Respiratory Exam Respiratory Exam: NORMAL BREATHING PATTERN - Cardiovascular Exam Cardiovascular Exam: +S1, +S2 - GI/Abdominal Exam GI & Abdominal Exam: Normal Bowel Sounds - Extremities Exam Extremities exam: Positive for: normal inspection - Neurological Exam Neurological exam: Oriented x3 - Psychiatric Exam Psychiatric exam: Normal Affect, Normal Mood - Skin Skin Exam: Warm Results - Vital Signs Recent Vital Signs: Last Vital Signs Temp 97.8 F 08/11/18 17:38 Pulse 86 08/11/18 17:38 Resp 18 08/11/18 17:38 BP 107/65 08/11/18 17:38 Pulse Ox 100 08/11/18 17:38 - Labs Result Diagrams: 08/11/18 06:25 08/11/18 06:25 Labs: Laboratory Results - last 24 hr 08/10/18 08/11/18 08/11/18 22:15 06:25 06:25 WBC 3.7 L 3.7 L RBC 2.74 L 2.96 L Hgb 8.8 L D 9.6 L Hct 26.1 L 28.7 L MCV 95.3 D 97.0 MCH 32.1 32.4 MCHC 33.7 33.4 RDW 20.2 H 21.0 H Plt Count 158 162 MPV 8.4 9.0 Gran % 52.3 55.6 Lymph % (Auto) 29.8 28.3 Rolette % (Auto) 16.9 H 14.8 H Eos % (Auto) 0.5 L 0.8 L Baso % (Auto) 0.5 0.5 Gran # 1.94 2.06 Lymph # (Auto) 1.1 L 1.1 L Rolette # (Auto) 0.6 0.6 Eos # (Auto) 0.0 0.0 Baso # (Auto) 0.02 0.02 Sodium 136 Potassium 3.8 Chloride 106 Carbon Dioxide 22 Anion Gap 12 BUN 7 Creatinine 0.5 L Est GFR ( Amer) > 60 Est GFR (Non-Af Amer) > 60 Random Glucose 84 Calcium 7.5 L Total Bilirubin 3.4 H AST 414 H D ALT 111 H Alkaline Phosphatase 448 H Total Protein 5.8 Albumin 2.9 L Globulin 2.9 Albumin/Globulin Ratio 1.0 L Assessment & Plan (1) Anemia Assessment and Plan: retic, b12, folate, ferritin to further characterize secondary to bone marrow metastasis and chronic disease from progressive malignancy transfusion support PRN Status: Acute (2) Leukopenia Assessment and Plan: no neutropenia Status: Acute (3) Breast cancer Assessment and Plan: stage IV LFT derangements secondary to progressive metastasis to liver would benefit from outpatient chemotherapy to decrease tumor burden; to be treated once discharged Thank you for this interesting consult. Status: Acute
[2018-08-12 07:52] LABS: HEMOGLOBIN 9.5 g/dL (12.0-16.0); MEAN CELL VOLUME 97.3 fl (80.0-105.0); MEAN CORPUSCULAR HEMOGLOBIN 32.4 pg (25.0-35.0); MEAN CORPUSCULAR HGB CONC 33.3 g/dl (31.0-37.0); MEAN PLATELET VOLUME 8.7 fl (7.0-11.0); RBC 2.93 10^6/uL (3.5-6.1); RED CELL DISTRIBUTION WIDTH 20.9 % (11.5-14.5); WHITE BLOOD COUNT 4.2 10^3/ul (4.5-11.0)
[2018-08-12] MEDS: Pantoprazole 40 mg EC Tab PO SCH (08:00)
[2018-08-12 08:13] LABS: ALBUMIN 2.8 g/dL (3.0-4.8); ALT/SGPT 113 U/L (7-56); AST/SGOT 468 U/L (14-36); BLOOD UREA NITROGEN 6 mg/dL (7-21); CALCIUM 7.1 mg/dL (8.4-10.5); GFR NON-AFRICAN AMERICAN > 60
[2018-08-12 08:46] VITALS: RESP 20
[2018-08-12] MEDS: Cholecalciferol 400 Intl Units Tab PO SCH (10:44)
[2018-08-12] MEDS: Morphine 2 mg/ml ISec IVP PRN (10:45)
--- NOTE | 2018-08-12 11:47 | CP.PCM.PN ---
<Kingston Rosas - Last Filed: 08/12/18 12:13> Subjective - Date & Time of Evaluation Date of Evaluation: 08/12/18 Time of Evaluation: 11:45 - Subjective Subjective: GI Fellow PGY4. Patient tolerated diet. No nausea or vomiting. She complains of abdomen distension, early satiety. Denies abdominal pain. 5pt ROS completed and neg except for above. Objective - Vital Signs/Intake and Output Vital Signs (last 24 hours): Temp Pulse Resp BP Pulse Ox 98.0 F 92 H 20 105/64 97 08/12/18 06:00 08/12/18 06:00 08/12/18 06:00 08/12/18 06:00 08/12/18 06:00 Intake and Output: 08/12/18 08/12/18 06:59 18:59 Intake Total 1800 Balance 1800 - Medications Medications: Current Medications Calcium Carbonate (Oscal) 500 mg PO DAILY [facility] Last Admin: 08/12/18 10:43 Dose: 500 mg Heparin Sodium (Porcine) (Heparin) 5,000 units SC Q8 [facility] PRN Reason: Protocol Last Admin: 08/12/18 06:23 Dose: 5,000 units Calcium Gluconate 1,000 mg/ (Sodium Chloride) 110 mls @ 110 mls/hr IVPB ONCE ONE Stop: 08/12/18 12:14 Letrozole (Femara) 2.5 mg PO DAILY [facility] Last Admin: 08/12/18 11:10 Dose: 2.5 mg Morphine Sulfate (Morphine) 2 mg IVP Q4H PRN PRN Reason: Pain, moderate (4-7) Last Admin: 08/12/18 10:45 Dose: 2 mg Non-Formulary Medication (Palbociclib [Ibrance]) 125 mg PO DAILY [facility] Ondansetron HCl (Zofran Inj) 4 mg IVP Q4H PRN PRN Reason: Nausea/Vomiting Pantoprazole Sodium (Protonix Ec Tab) 40 mg PO ACB [facility] Last Admin: 08/12/18 08:00 Dose: 40 mg Vitamin D (Vitamin D 400 Intl Units Tab) 400 intlu PO DAILY [facility] Last Admin: 08/12/18 10:44 Dose: 400 intlu - Labs Labs: 08/12/18 07:00 08/12/18 07:00 PT 17.3 SECONDS (9.4-12.5) H 08/09/18 22:30 INR 1.50 08/09/18 22:30 APTT 29.5 Seconds (25.1-36.5) 08/09/18 22:30 - Constitutional Appears: Non-toxic, No Acute Distress - Head Exam Head Exam: NORMAL INSPECTION - Eye Exam Eye Exam: Normal appearance - ENT Exam ENT Exam: Mucous Membranes Moist - Neck Exam Neck Exam: Normal Inspection - Respiratory Exam Respiratory Exam: Clear to Ausculation Bilateral, NORMAL BREATHING PATTERN - Cardiovascular Exam Cardiovascular Exam: REGULAR RHYTHM, +S1, +S2 - GI/Abdominal Exam GI & Abdominal Exam: Distended, Normal Bowel Sounds, Organomegaly. 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 #Esophagitis #Ascites Plan: -Abdominal US showed hepatic metastatic disease, completely contracted GB ( limits evaluation) without any cholelithiasis or cholecystitis evident, unremarkable CBD at 2mm, and trace ascites -CT Abdomen/Pelvis showed diffuse metastatic disease and hepatomegaly, portal vein patency, hepatic veins and IVC compression by adjacent metastases, diffuse bony metastatic disease and moderate ascites in the pelvis -Continue pain control -Continue Zofran PRN for N/V -Recommend small meals, frequent, puree diet. -Continue PPI daily indefinitely -Recommend follow up for ascites. Discussed with primary team, may benefit from combination of diuretics lasix and spironolactone as etiology is likely from hepatic mets. She would need follow up for these medications. Discussed possibility of paracentis for therapeutic purposes. This likely will not be done until Tuesday, and patient requesting to go home now. -Encourage follow up with oncologist <Bay Cooley V - Last Filed: 08/12/18 21:37> Objective - Vital Signs/Intake and Output Vital Signs (last 24 hours): Temp Pulse Resp BP Pulse Ox 98.3 F 91 H 20 112/69 99 08/12/18 14:00 08/12/18 14:00 08/12/18 14:00 08/12/18 15:08 08/12/18 14:00 Intake and Output: 08/12/18 08/13/18 18:59 06:59 Intake Total 600 Balance 600 - Medications Medications: Current Medications Calcium Carbonate (Oscal) 500 mg PO DAILY [facility] Last Admin: 08/12/18 10:43 Dose: 500 mg Furosemide (Lasix) 20 mg IVP DAILY [facility] Last Admin: 08/12/18 15:08 Dose: 20 mg Heparin Sodium (Porcine) (Heparin) 5,000 units SC Q8 [facility] PRN Reason: Protocol Last Admin: 08/12/18 15:03 Dose: 5,000 units Letrozole (Femara) 2.5 mg PO DAILY [facility] Last Admin: 08/12/18 11:10 Dose: 2.5 mg Morphine Sulfate (Morphine) 2 mg IVP Q4H PRN PRN Reason: Pain, moderate (4-7) Last Admin: 08/12/18 10:45 Dose: 2 mg Non-Formulary Medication (Palbociclib [Ibrance]) 125 mg PO DAILY [facility] Last Admin: 08/12/18 15:01 Dose: Not Given Ondansetron HCl (Zofran Inj) 4 mg IVP Q4H PRN PRN Reason: Nausea/Vomiting Pantoprazole Sodium (Protonix Ec Tab) 40 mg PO ACB [facility] Last Admin: 08/12/18 08:00 Dose: 40 mg Vitamin D (Vitamin D 400 Intl Units Tab) 400 intlu PO DAILY [facility] Last Admin: 08/12/18 10:44 Dose: 400 intlu - Labs Labs: 08/12/18 07:00 08/12/18 07:00 PT 17.3 SECONDS (9.4-12.5) H 08/09/18 22:30 INR 1.50 08/09/18 22:30 APTT 29.5 Seconds (25.1-36.5) 08/09/18 22:30 Attending/Attestation - Attestation I have personally seen and examined this patient.: Yes I have fully participated in the care of the patient.: Yes I have reviewed all pertinent clinical information, including history, physical exam and plan: Yes Notes (Text): This is an addendum to GI progress report dictated by the GI Fellow.The patient was seen and examined earlier. Medical records, lab studies, imagings were reviewed. Last 24 hours events reviewed. Agreed with the above treatment plan as outlined in GI Fellow 's notes with the addition of the following Patient is complain of abdominal distension and nausea on examination abdomen distended large hepatomegly Ascitis can be due to maliginancy Patient does have grade B esophagitis needs to be on PPI Gastroperosis on puree diet 08/12/18 21:35
--- NOTE | 2018-08-12 14:57 | CP.PCM.PN ---
<Ehsan White - Last Filed: 08/12/18 14:58> Subjective - Date & Time of Evaluation Date of Evaluation: 08/12/18 Time of Evaluation: 14:56 - Subjective Subjective: Ehsan White, PGY2 Medicine Progress Note for Dr. Amy Carvajal Patient was seen and examined at bedside this morning. She said her abdominal pain is present. It feels more like abdominal discomfort. Patient also has mild shortness of breath likely due to hepatomegaly pushing up against diaphragm. Otherwise, denies cp, bowel/bladder changes, n/v/d. No overnight changes. Objective - Vital Signs/Intake and Output Vital Signs (last 24 hours): Temp Pulse Resp BP Pulse Ox 98.0 F 92 H 20 105/64 97 08/12/18 06:00 08/12/18 06:00 08/12/18 06:00 08/12/18 06:00 08/12/18 06:00 Intake and Output: 08/12/18 08/12/18 06:59 18:59 Intake Total 1800 Balance 1800 - Medications Medications: Current Medications Calcium Carbonate (Oscal) 500 mg PO DAILY [facility] Last Admin: 08/12/18 10:43 Dose: 500 mg Furosemide (Lasix) 20 mg IVP DAILY [facility] Heparin Sodium (Porcine) (Heparin) 5,000 units SC Q8 URSZULA PRN Reason: Protocol Last Admin: 08/12/18 06:23 Dose: 5,000 units Letrozole (Femara) 2.5 mg PO DAILY [facility] Last Admin: 08/12/18 11:10 Dose: 2.5 mg Morphine Sulfate (Morphine) 2 mg IVP Q4H PRN PRN Reason: Pain, moderate (4-7) Last Admin: 08/12/18 10:45 Dose: 2 mg Non-Formulary Medication (Palbociclib [Ibrance]) 125 mg PO DAILY [facility] Ondansetron HCl (Zofran Inj) 4 mg IVP Q4H PRN PRN Reason: Nausea/Vomiting Pantoprazole Sodium (Protonix Ec Tab) 40 mg PO ACB [facility] Last Admin: 08/12/18 08:00 Dose: 40 mg Vitamin D (Vitamin D 400 Intl Units Tab) 400 intlu PO DAILY [facility] Last Admin: 08/12/18 10:44 Dose: 400 intlu - Labs Labs: 08/12/18 07:00 08/12/18 07:00 PT 17.3 SECONDS (9.4-12.5) H 08/09/18 22:30 INR 1.50 08/09/18 22:30 APTT 29.5 Seconds (25.1-36.5) 08/09/18 22:30 - Constitutional Appears: Non-toxic - Head Exam Head Exam: ATRAUMATIC, NORMOCEPHALIC - Eye Exam Eye Exam: EOMI, Normal appearance - ENT Exam ENT Exam: Mucous Membranes Moist - Neck Exam Neck Exam: Normal Inspection - Respiratory Exam Respiratory Exam: Clear to Ausculation Bilateral, NORMAL BREATHING PATTERN. absent: Accessory Muscle Use - Cardiovascular Exam Cardiovascular Exam: RRR, +S1, +S2 - GI/Abdominal Exam GI & Abdominal Exam: Distended, Normal Bowel Sounds, Organomegaly. absent: Rebound - Extremities Exam Extremities Exam: Normal Inspection. absent: Calf Tenderness - Neurological Exam Neurological Exam: Alert, Awake, Oriented x3 - Psychiatric Exam Psychiatric exam: Normal Affect, Normal Mood - Skin Skin Exam: Dry, Intact, Normal Color, Warm Assessment and Plan - Assessment and Plan (Free Text) Assessment: This is a 48 year old female with PMH of stage 4 breast cancer with mets to the bone, liver who presented to the ED with complaints of worsening RUQ abdominal pain with distension and SOB for the past week, with leg swelling over the past 3 days. Patient is admitted for Abdominal Pain and Distention 2/2 Liver Metastasis. Plan: Breast cancer - Continue with Ibrance and Letrozole - Heme/Onc consulted recommend outpatient chemotherapy Abdominal Pain 2/2 Stage IV Breast Cancer with Metastasis to Liver - f/u RUQ ultrasound abdomen - GI consulted, recs appreciated. Want to do endoscopy to r/o bleed. - Palliative care consulted, recs appreciated. - Heme/onc consulted, f/u recs. - Abdominal US shows enlarged liver with diffuse hepatic lesions consistent with metastasis. Nonspecific gallbladder wall edema and thickening without stones or biliary obstruction. (see full report) - Abdominal CT with IV contrast shows: 1. Enlarged liver with extensive metastatic disease. 2. Mild narrowing of the main portal vein which is patent. Multiple upper abdominal and left retroperitoneal collateral vessels. --Findings suggest underlying portal hypertension. 3. Mild-moderate abdominal and pelvic free fluid, increased since prior study. 4. Diffuse osseous metastatic disease. 5. Subtle hypodense areas within the spleen. Possible metastasis cannot be excluded. - c/w zofran for nausea - c/w Morphine 2 mg IVP Q4H prn for pain control Transaminitis 2/2 liver metastasis - avoid hepatotaxic medications Anemia; likely due to chronic disease, medication side effect - Hgb is 9.5 after x2 pRBC transfusion yesterday - stable - peripheral blood smear: no atypical cells - GI consulted and performed endoscopy that showed esophagitis and recommend PPI indefinitely Rule out Pulmonary Embolism - CT Angio: Negative for PE - High risk due to malignancy, sob, and hypercoaguable state GI ppx: ptx DVT ppx: heparin Dispo: Monitor patient on the floor. Poor prognosis. Case was discussed and reviewed with Attending Physician, Dr. Amy Carvajal. <Amy Carvajal R - Last Filed: 08/12/18 18:39> Objective - Vital Signs/Intake and Output Vital Signs (last 24 hours): Temp Pulse Resp BP Pulse Ox 98.3 F 91 H 20 112/69 99 08/12/18 14:00 08/12/18 14:00 08/12/18 14:00 08/12/18 15:08 08/12/18 14:00 Intake and Output: 08/12/18 08/12/18 06:59 18:59 Intake Total 1800 600 Balance 1800 600 - Medications Medications: Current Medications Calcium Carbonate (Oscal) 500 mg PO DAILY [facility] Last Admin: 08/12/18 10:43 Dose: 500 mg Furosemide (Lasix) 20 mg IVP DAILY [facility] Last Admin: 08/12/18 15:08 Dose: 20 mg Heparin Sodium (Porcine) (Heparin) 5,000 units SC Q8 URSZULA PRN Reason: Protocol Last Admin: 08/12/18 15:03 Dose: 5,000 units Letrozole (Femara) 2.5 mg PO DAILY [facility] Last Admin: 08/12/18 11:10 Dose: 2.5 mg Morphine Sulfate (Morphine) 2 mg IVP Q4H PRN PRN Reason: Pain, moderate (4-7) Last Admin: 08/12/18 10:45 Dose: 2 mg Non-Formulary Medication (Palbociclib [Ibrance]) 125 mg PO DAILY [facility] Last Admin: 08/12/18 15:01 Dose: Not Given Ondansetron HCl (Zofran Inj) 4 mg IVP Q4H PRN PRN Reason: Nausea/Vomiting Pantoprazole Sodium (Protonix Ec Tab) 40 mg PO ACB [facility] Last Admin: 08/12/18 08:00 Dose: 40 mg Vitamin D (Vitamin D 400 Intl Units Tab) 400 intlu PO DAILY [facility] Last Admin: 08/12/18 10:44 Dose: 400 intlu - Labs Labs: 08/12/18 07:00 08/12/18 07:00 PT 17.3 SECONDS (9.4-12.5) H 08/09/18 22:30 INR 1.50 08/09/18 22:30 APTT 29.5 Seconds (25.1-36.5) 08/09/18 22:30 Attending/Attestation - Attestation I have personally seen and examined this patient.: Yes I have fully participated in the care of the patient.: Yes I have reviewed all pertinent clinical information, including history, physical exam and plan: Yes Notes (Text): Patient seen and examined by me at 11:30AM with resident. Case including HPI, physical exam, and assessment and plan discussed with resident. Agree with above with following additions/corrections. Patient is a 48-year-old female with past medical history significant for metastatic stage IV breast cancer with metastases to the liver and bone that presented to emergency room with worsening right upper quadrant pain with distention and leg swelling. Patient states that she is feeling ok. Still has shortness of breath. Patient states she feels pressure in her abdomen. She denies any chest pain or palpitations. No nausea or vomiting. No fevers or chills. No dysuria. No diarrhea. Physical exam: General: Awake and alert sitting up in bed in no acute distress HEENT: Normocephalic atraumatic. Pupils equal reactive. No scleral icterus. Oropharynx is pink. Positive dry mucous membranes. Poor dentition. Neck is supple. Cardiovascular: Normal rhythm. Normal S1, S2. No murmurs, rubs or gallops appreciated Pulmonary: Normal respiratory effort. No rhonchi, rales or wheezing appreciated. Gastrointestinal: Soft, distended. Tender with palpation. Positive bowel sounds all 4 quadrants, no guarding. Positive hepatomegaly Musculoskeletal: Moves all extremities, no calf tenderness. Positive bilateral lower extremity pitting edema Central nervous system: AAOx3. CN2-12 grossly intact. Dermatologic: Skin warm and dry. Positive pallor Assessment and plan: Patient is a 48-year-old female with past medical history significant for metastatic stage IV breast cancer with metastases to the liver and bone that presented to emergency room with worsening right upper quadrant pain with distention and leg swelling. 1. Abdominal distention. Shortness of breath. Likely secondary to ascites. We' ll start on low dose of Lasix. Since blood pressure on the lower side. Will increase if blood pressure tolerates. We'll consult IR for possible paracentesis on 08/14/2018. CT abdomen and pelvis per radiologist shows diffuse metastatic disease and hepatomegaly; the liver measures 28 cm in height and 24 cm wide; the portal vein is patent; hepatic veins and IVC are compressed by adjacent metastases; diffuse bony metastatic disease; moderate ascites in the pelvis. Abdominal ultrasound per radiology shows testes cc again suggested throughout the liver without gross intrahepatic biliary dilatation evident, hepatomegaly reiterated, completely contracted gallbladder limits interpretation as well, no cholelithiasis or pericholecystic fluid collection evident, CBD caliber normal, trace hepatic ascites. GI following, recommendations appreciated. EGD per front desk host showed reflux esophagitis, small amount of food, retained food in the duodenum (please see official read for full details). Abdominal doppler ultrasound per radiologist showed the portal vein and hepatic veins are patent. 2. Acute on chronic anemia. May be secondary to medication side effect. Status post 2 units packed red blood cells. H&H improved. Continue to monitor. 3. Transaminitis. Secondary to liver metastases. Continue to monitor. 4. Stage IV metastatic breast cancer with metastases to bone and liver. Hematology/oncology Dr. Mak following, recommendations appreciated. Palliative care consulted. Continue home Ibrance and Femara. 5. Bilateral lower extremity edema. Bilateral lower extremity venous Dopplers negative for DVT. CTA chest per radiologist shows unremarkable CT pulmonary angiogram, no pulmonary embolus. 6. GI/DVT prophylaxis. Protonix and SCDs with early ambulation. Case was discussed in detail with the patient regarding current diagnosis and treatment plan.
[2018-08-12] MEDS: PALBOCICLIB 125 MG PO SCH (15:01)
[2018-08-13 06:39] LABS: HEMOGLOBIN 8.9 g/dL (12.0-16.0); MEAN CELL VOLUME 98.2 fl (80.0-105.0); MEAN CORPUSCULAR HGB CONC 32.6 g/dl (31.0-37.0); MEAN PLATELET VOLUME 8.8 fl (7.0-11.0); RBC 2.78 10^6/uL (3.5-6.1); WHITE BLOOD COUNT 4.3 10^3/ul (4.5-11.0)
[2018-08-13] MEDS: Pantoprazole 40 mg EC Tab PO SCH (06:53)
[2018-08-13 07:22] LABS: ALB/GLOB RATIO 0.9 (1.1-1.8); ALBUMIN 2.5 g/dL (3.0-4.8); ALT/SGPT 110 U/L (7-56); AST/SGOT 443 U/L (14-36); BLOOD UREA NITROGEN 6 mg/dL (7-21); CALCIUM 6.5 mg/dL (8.4-10.5); GFR NON-AFRICAN AMERICAN > 60
[2018-08-13] MEDS ORDERED: WATER IV STA (07:36)
[2018-08-13] MEDS ORDERED: DEXTROSE 5% IV STA (07:36)
[2018-08-13] MEDS ORDERED: CALCIUM CHLORIDE IV STA (07:36)
[2018-08-13 08:14] VITALS: BP 111/71; PULSE 100; TEMP 97.8; O2SAT 99
--- NOTE | 2018-08-13 09:57 | CP.PCM.PN ---
Subjective - Date & Time of Evaluation Date of Evaluation: 08/13/18 Time of Evaluation: 10:40 - Subjective Subjective: Ehsan White, PGY2 Medicine Progress Note for Dr. Amy Carvajal Patient was seen and examined at bedside this morning. She reports that her abdominal pain and shortness occurs with standing or walking. She requests Motrin for her abdominal pain. We discussed with the patient the possibility of her undergoing a paracentesis tomorrow for symptomatic relief. She also reports needing an increase in her protein given she is on Ibrance. We consulted standards analyst and started Prostat three time a day. Otherwise, nurse reports no adverse events overnight. Objective - Vital Signs/Intake and Output Vital Signs (last 24 hours): Temp Pulse Resp BP Pulse Ox 97.8 F 100 H 20 111/71 99 08/13/18 06:00 08/13/18 06:00 08/13/18 06:00 08/13/18 06:00 08/13/18 06:00 Intake and Output: 08/13/18 08/13/18 06:59 18:59 Intake Total 1200 Balance 1200 - Medications Medications: Current Medications Calcium Carbonate (Oscal) 500 mg PO DAILY [facility] Last Admin: 08/12/18 10:43 Dose: 500 mg Furosemide (Lasix) 20 mg IVP DAILY [facility] Last Admin: 08/12/18 15:08 Dose: 20 mg Heparin Sodium (Porcine) (Heparin) 5,000 units SC Q8 URSZULA PRN Reason: Protocol Last Admin: 08/13/18 06:53 Dose: 5,000 units Letrozole (Femara) 2.5 mg PO DAILY [facility] Last Admin: 08/12/18 11:10 Dose: 2.5 mg Morphine Sulfate (Morphine) 2 mg IVP Q4H PRN PRN Reason: Pain, moderate (4-7) Last Admin: 08/12/18 10:45 Dose: 2 mg Non-Formulary Medication (Palbociclib [Ibrance]) 125 mg PO DAILY [facility] Last Admin: 08/12/18 15:01 Dose: Not Given Ondansetron HCl (Zofran Inj) 4 mg IVP Q4H PRN PRN Reason: Nausea/Vomiting Pantoprazole Sodium (Protonix Ec Tab) 40 mg PO ACB [facility] Last Admin: 08/13/18 06:53 Dose: 40 mg Vitamin D (Vitamin D 400 Intl Units Tab) 400 intlu PO DAILY [facility] Last Admin: 08/12/18 10:44 Dose: 400 intlu - Labs Labs: 08/13/18 06:00 08/13/18 06:00 PT 17.3 SECONDS (9.4-12.5) H 08/09/18 22:30 INR 1.50 08/09/18 22:30 APTT 29.5 Seconds (25.1-36.5) 08/09/18 22:30 - Constitutional Appears: Other (uncomfortable) - Head Exam Head Exam: ATRAUMATIC, NORMOCEPHALIC - Eye Exam Eye Exam: EOMI, Normal appearance - ENT Exam ENT Exam: Mucous Membranes Moist - Neck Exam Neck Exam: Normal Inspection - Respiratory Exam Respiratory Exam: Clear to Ausculation Bilateral, NORMAL BREATHING PATTERN. absent: Accessory Muscle Use - Cardiovascular Exam Cardiovascular Exam: RRR, +S1, +S2 - GI/Abdominal Exam GI & Abdominal Exam: Distended, Tenderness (right upper quandrant), Organomegaly (hepatomegaly). absent: Guarding, Rebound - Extremities Exam Extremities Exam: Pedal Edema. absent: Calf Tenderness - Neurological Exam Neurological Exam: Alert, Awake, Oriented x3 - Psychiatric Exam Psychiatric exam: Normal Affect, Normal Mood - Skin Skin Exam: Dry, Intact, Normal Color, Warm Assessment and Plan - Assessment and Plan (Free Text) Assessment: This is a 48 year old female with PMH of stage 4 breast cancer with mets to the bone, liver who presented to the ED with complaints of worsening RUQ abdominal pain with distension and SOB for the past week, with leg swelling over the past 3 days. Patient is admitted for Abdominal Pain and Distention 2/2 Liver Metastasis. Plan: Breast cancer - Continue with Ibrance and Letrozole - Heme/Onc consulted recommend outpatient chemotherapy Abdominal Pain 2/2 Stage IV Breast Cancer with Metastasis to Liver - IR consulted to see if patient is a candidate for symptomatic paracentesis - Oncology recommends chemotherapy possibly to reduce tumor burden, as an outpatient - GI performed upper endoscopy that showed esophagitis and recommended 40 mg PO Protonix daily as well as Lasix 20 mg IVP for excess fluid/ascites - Abdominal US shows enlarged liver with diffuse hepatic lesions consistent with metastasis. Nonspecific gallbladder wall edema and thickening without stones or biliary obstruction. (see full report) - Abdominal CT with IV contrast shows: 1. Enlarged liver with extensive metastatic disease. 2. Mild narrowing of the main portal vein which is patent. Multiple upper abdominal and left retroperitoneal collateral vessels. --Findings suggest underlying portal hypertension. 3. Mild-moderate abdominal and pelvic free fluid, increased since prior study. 4. Diffuse osseous metastatic disease. 5. Subtle hypodense areas within the spleen. Possible metastasis cannot be excluded. - c/w zofran for nausea - c/w Morphine 2 mg IVP Q4H prn for pain control Transaminitis 2/2 liver metastasis - avoid hepatotaxic medications Anemia; likely due to chronic disease, medication side effect - Hgb is 8.9 today - peripheral blood smear: no atypical cells - GI consulted and performed endoscopy that showed esophagitis and recommend PPI indefinitely Hypocalcemia with corrected Ca of 7.9 - one gram of calcium gluconate given - continue with home Oscal Malnourished - Prostat - standards analyst consulted Rule out Pulmonary Embolism - CT Angio: Negative for PE - High risk due to malignancy, sob, and hypercoaguable state GI ppx: ptx DVT ppx: heparin Dispo: Monitor patient on the floor. Poor prognosis. Case was discussed and reviewed with Attending Physician, Dr. Amy Carvajal.
[2018-08-13] MEDS ORDERED: PALBOCICLIB 125 MG PO SCH (10:00)
[2018-08-13] MEDS: Cholecalciferol 400 Intl Units Tab PO SCH (10:51)
[2018-08-13] MEDS: PALBOCICLIB 125 MG PO SCH (10:53)
--- NOTE | 2018-08-13 11:42 | CP.PCM.DIS ---
Provider - Provider Date of Admission: 08/10/18 01:06 Attending physician: Jay Wooten MD Primary care physician: shanae Consults: Dr. Obdulio Marte Time Spent in preparation of Discharge (in minutes): 35 Hospital Course - Lab Results Lab Results: Most Recent Lab Values WBC 4.3 10^3/ul (4.5-11.0) L 08/13/18 06:00 RBC 2.78 10^6/uL (3.5-6.1) L 08/13/18 06:00 Hgb 8.9 g/dL (12.0-16.0) L 08/13/18 06:00 Hct 27.3 % (36.0-48.0) L 08/13/18 06:00 MCV 98.2 fl (80.0-105.0) 08/13/18 06:00 MCH 32.0 pg (25.0-35.0) 08/13/18 06:00 MCHC 32.6 g/dl (31.0-37.0) 08/13/18 06:00 RDW 21.0 % (11.5-14.5) H 08/13/18 06:00 Plt Count 142 10^3/uL (120.0-450.0) 08/13/18 06:00 MPV 8.8 fl (7.0-11.0) 08/13/18 06:00 Gran % 55.6 % (50.0-68.0) 08/11/18 06:25 Lymph % (Auto) 28.3 % (22.0-35.0) 08/11/18 06:25 [place] % (Auto) 14.8 % (1.0-6.0) H 08/11/18 06:25 Eos % (Auto) 0.8 % (1.5-5.0) L 08/11/18 06:25 Baso % (Auto) 0.5 % (0.0-3.0) 08/11/18 06:25 Gran # 2.06 (1.4-6.5) 08/11/18 06:25 Lymph # (Auto) 1.1 (1.2-3.4) L 08/11/18 06:25 [place] # (Auto) 0.6 (0.1-0.6) 08/11/18 06:25 Eos # (Auto) 0.0 (0.0-0.7) 08/11/18 06:25 Baso # (Auto) 0.02 K/mm3 (0.0-2.0) 08/11/18 06:25 Differential Comment Cancelled 08/10/18 06:15 PT 17.3 SECONDS (9.4-12.5) H 08/09/18 22:30 INR 1.50 08/09/18 22:30 APTT 29.5 Seconds (25.1-36.5) 08/09/18 22:30 Sodium 136 mmol/L (132-148) 08/13/18 06:00 Potassium 3.7 mmol/L (3.6-5.0) 08/13/18 06:00 Chloride 107 mmol/L (98-107) 08/13/18 06:00 Carbon Dioxide 22 mmol/L (21-33) 08/13/18 06:00 Anion Gap 11 (10-20) 08/13/18 06:00 BUN 6 mg/dL (7-21) L 08/13/18 06:00 Creatinine 0.4 mg/dl (0.7-1.2) L 08/13/18 06:00 Est GFR ( Amer) > 60 08/13/18 06:00 Est GFR (Non-Af Amer) > 60 08/13/18 06:00 Random Glucose 95 mg/dL (70-110) 08/13/18 06:00 Calcium 6.5 mg/dL (8.4-10.5) L* 08/13/18 06:00 Phosphorus 2.2 mg/dL (2.5-4.5) L 08/10/18 06:15 Magnesium 2.1 mg/dL (1.7-2.2) 08/13/18 06:30 Iron 118 ug/dL (45-180) 08/10/18 06:15 TIBC 209 ug/dL (265-497) L 08/10/18 06:15 % Saturation 56 % (20-55) H 08/10/18 06:15 Ferritin 4360.0 ng/mL 08/10/18 06:15 Total Bilirubin 3.5 mg/dL (0.2-1.3) H 08/13/18 06:00 Direct Bilirubin 1.0 mg/dL (0.0-0.4) H 08/10/18 06:15 AST 443 U/L (14-36) H 08/13/18 06:00 ALT 110 U/L (7-56) H 08/13/18 06:00 Alkaline Phosphatase 423 U/L (38-126) H 08/13/18 06:00 Ammonia 17 umol/L (9-33) 08/09/18 23:18 Total Protein 5.3 g/dL (5.8-8.3) L 08/13/18 06:00 Albumin 2.5 g/dL (3.0-4.8) L 08/13/18 06:00 Globulin 2.7 gm/dL 08/13/18 06:00 Albumin/Globulin Ratio 0.9 (1.1-1.8) L 08/13/18 06:00 Lipase 75 U/L (23-300) 08/09/18 22:30 Urine Color Yellow (YELLOW) 08/10/18 00:04 Urine Appearance Clear (CLEAR) 08/10/18 00:04 Urine pH 6.5 (4.7-8.0) 08/10/18 00:04 Ur Specific [place] <= 1.005 (1.005-1.035) 08/10/18 00:04 Urine Protein Negative mg/dL (<30 mg/dL) 08/10/18 00:04 Urine Glucose (UA) Negative mg/dL (NEGATIVE) 08/10/18 00:04 Urine Ketones Negative mg/dL (NEGATIVE) 08/10/18 00:04 Urine Blood Negative (NEGATIVE) 08/10/18 00:04 Urine Nitrate Negative (NEGATIVE) 08/10/18 00:04 Urine Bilirubin Negative (NEGATIVE) 08/10/18 00:04 Urine Urobilinogen 0.2 E.U./dL (<1 E.U./dL) 08/10/18 00:04 Ur Leukocyte Esterase Trace [place]/uL (NEGATIVE) H 08/10/18 00:04 Urine RBC 0 - 2 /hpf (0-2) 08/10/18 00:04 Urine WBC 1 - 3 /hpf (0-6) 08/10/18 00:04 Ur Epithelial Cells 0 - 2 /hpf (0-5) 08/10/18 00:04 Urine Bacteria Rare (NEG) 08/10/18 00:04 Hepatitis A IgM Ab Negative (NEGATIVE) 08/10/18 06:15 Hep Bs Antigen Negative (NEGATIVE) 08/10/18 06:15 Hep B Core IgM Ab Negative (NEGATIVE) 08/10/18 06:15 Hepatitis C Antibody Negative (NEGATIVE) 08/10/18 06:15 Blood Type O NEGATIVE 08/09/18 23:43 Antibody Screen Negative 08/09/18 23:43 Crossmatch See Detail 08/09/18 23:43 BBK History Checked Patient has bt 08/09/18 23:43 - Hospital Course Hospital Course: 48 year old female with stage IV ER/FL postive/ [id number] negative invasive ductal carcinoma breast cancer with known metastatic disease who presented with one week of RUQ abdominal pain, dyspnea on exertion, decreased appetite and was found to have a hemoglobin of 6.6 (likely secondary to Ibrance) along with CT findings showing diffuse metastatic disease, hepatomegaly with the liver measuring 28 cm in height and 24 cm wide, the portal vein patent, the hepatic veins and IVC are compressed by adjacent metastases, diffuse bony metastatic disease and moderate ascites in the pelvis. She underwent transfusion of 2 units of PRBCS with appropriate response and GI was consulted who performed an upper endoscopy that showed grade B esophagitis, no stigmatic of bleeding or varices, and recommended the patient be on Protonix 40 mg PO indefinitely and PO Lasix for her ascites. Furthermore, GI thought the pateint was not a candidate for paracentesis. Dr. Mak, the patient's primary oncologist, recommended outpatient chemotherapy for reduction of her tumor burden. The patient's symptoms improved during her hospital stay. She was informed to follow up with her oncologist as an outpatient and was discharged with the below written instructions and recommendations. - Date & Time of H&P Date of H&P: 08/13/18 Time of H&P: 11:35 Discharge Exam - Head Exam Head Exam: ATRAUMATIC, NORMOCEPHALIC - Eye Exam Eye Exam: EOMI, Normal appearance - ENT Exam ENT Exam: Mucous Membranes Moist - Respiratory Exam Respiratory Exam: Clear to PA & Lateral, NORMAL BREATHING PATTERN - Cardiovascular Exam Cardiovascular Exam: RRR, +S1, +S2 - GI/Abdominal Exam GI & Abdominal Exam: Distended, Normal Bowel Sounds. absent: Guarding, Soft - Extremities Exam Extremities exam: pedal edema - Neurological Exam Neurological exam: Alert, CN II-XII Intact, Oriented x3 - Psychiatric Exam Psychiatric exam: Normal Affect, Normal Mood - Skin Skin Exam: Dry, Intact, Normal Color, Warm Discharge Plan - Discharge Medications Prescriptions: Furosemide [Lasix] 20 mg PO DAILY #3 tab Pantoprazole [Protonix EC Tab] 40 mg PO ACB #30 ect - Follow Up Plan Condition: FAIR Disposition: HOME/ ROUTINE Instructions: Acute Abdominal Pain (DC), Acute Abdominal Pain (GEN) Additional Instructions: 1) Please continue taking your home medications as directed. 2) You are to take Pantoprazole 40 mg by mouth 30 minutes before your first meal each day with at least 8 ounces of water. 3) Please follow up with your Oncologist, Dr. Mak within 3-5 days of discharge. 4) Please follow up with your Primary Medical Doctor at [facility] to check your electrolytes within 3-5 days of discharge. Please return to the Emergency room if symptoms return. Referrals: Franklyn Mak MD [Staff Provider] -
--- NOTE | 2018-08-13 12:36 | CP.PCM.PN ---
<Kingston Rosas - Last Filed: 08/13/18 12:32> Subjective - Date & Time of Evaluation Date of Evaluation: 08/13/18 Time of Evaluation: 12:32 - Subjective Subjective: GI Fellow PGY4, Clinically same. Likely d/c today with close follow up with oncologist. Discussed case with primary team, no paracentesis recommended for pelvic ascites. Objective - Vital Signs/Intake and Output Vital Signs (last 24 hours): Temp Pulse Resp BP Pulse Ox 97.8 F 100 H 20 111/71 99 08/13/18 06:00 08/13/18 06:00 08/13/18 06:00 08/13/18 10:52 08/13/18 06:00 Intake and Output: 08/13/18 08/13/18 06:59 18:59 Intake Total 1200 Balance 1200 - Medications Medications: Current Medications Calcium Carbonate (Oscal) 500 mg PO DAILY [facility] Last Admin: 08/13/18 10:51 Dose: 500 mg Furosemide (Lasix) 20 mg IVP DAILY [facility] Last Admin: 08/13/18 10:52 Dose: 20 mg Heparin Sodium (Porcine) (Heparin) 5,000 units SC Q8 URSZULA PRN Reason: Protocol Last Admin: 08/13/18 06:53 Dose: 5,000 units Letrozole (Femara) 2.5 mg PO DAILY [facility] Last Admin: 08/13/18 10:54 Dose: 2.5 mg Morphine Sulfate (Morphine) 2 mg IVP Q4H PRN PRN Reason: Pain, moderate (4-7) Last Admin: 08/12/18 10:45 Dose: 2 mg Non-Formulary Medication (Palbociclib [Ibrance]) 125 mg PO DAILY [facility] Last Admin: 08/13/18 10:53 Dose: Not Given Ondansetron HCl (Zofran Inj) 4 mg IVP Q4H PRN PRN Reason: Nausea/Vomiting Pantoprazole Sodium (Protonix Ec Tab) 40 mg PO ACB [facility] Last Admin: 08/13/18 06:53 Dose: 40 mg Vitamin D (Vitamin D 400 Intl Units Tab) 400 intlu PO DAILY [facility] Last Admin: 08/13/18 10:51 Dose: 400 intlu - Labs Labs: 08/13/18 06:00 08/13/18 06:00 PT 17.3 SECONDS (9.4-12.5) H 08/09/18 22:30 INR 1.50 08/09/18 22:30 APTT 29.5 Seconds (25.1-36.5) 08/09/18 22:30 - Constitutional Appears: No Acute Distress, Chronically Ill - Head Exam Head Exam: NORMAL INSPECTION - Eye Exam Eye Exam: Normal appearance - ENT Exam ENT Exam: Mucous Membranes Moist - Respiratory Exam Respiratory Exam: Clear to Ausculation Bilateral, NORMAL BREATHING PATTERN - Cardiovascular Exam Cardiovascular Exam: REGULAR RHYTHM - GI/Abdominal Exam GI & Abdominal Exam: Distended, Soft, Normal Bowel Sounds. 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 #Esophagitis #Ascites Plan: -Abdominal US showed hepatic metastatic disease, completely contracted GB ( limits evaluation) without any cholelithiasis or cholecystitis evident, unremarkable CBD at 2mm, and trace ascites -CT Abdomen/Pelvis showed diffuse metastatic disease and hepatomegaly, portal vein patency, hepatic veins and IVC compression by adjacent metastases, diffuse bony metastatic disease and moderate ascites in the pelvis -Abd U/S with doppler shows patent PV, hepatic vein, splenic vein. -Continue pain control -Continue Zofran PRN for N/V -Recommend small meals, frequent, puree diet. -Continue PPI daily indefinitely -Recommend follow up for pelvic ascites. Discussed with primary team, may benefit from combination of diuretics lasix and spironolactone as etiology is likely from hepatic mets. She would need follow up for these medications. -Recommend against paracentesis as there is no good access. Most ascites is in pelvis. Abdomen is mostly displaced by hepatic/tumor tissue. -Encourage follow up with oncologist shortly after discharge. <Bay Cooley V - Last Filed: 08/14/18 00:37> Objective - Vital Signs/Intake and Output Vital Signs (last 24 hours): Temp Pulse Resp BP Pulse Ox 97.8 F 100 H 20 111/71 99 09/16/18 06:00 08/13/18 06:00 08/13/18 06:00 08/13/18 10:52 08/13/18 06:00 Intake and Output: 08/13/18 08/14/18 18:59 06:59 Intake Total 720 Balance 720 - Labs Labs: 08/13/18 06:00 08/13/18 06:00 PT 17.3 SECONDS (9.4-12.5) H 08/09/18 22:30 INR 1.50 08/09/18 22:30 APTT 29.5 Seconds (25.1-36.5) 08/09/18 22:30 Attending/Attestation - Attestation I have personally seen and examined this patient.: Yes I have fully participated in the care of the patient.: Yes I have reviewed all pertinent clinical information, including history, physical exam and plan: Yes Notes (Text): This is an addendum to GI progress report dictated by the GI Fellow.The patient was seen and examined earlier. Medical records, lab studies, imagings were reviewed. Last 24 hours events reviewed. Agreed with the above treatment plan as outlined in GI Fellow 's notes with the addition of the following CT scan was reviewed which showed minimal abdominal ascitis and moderate pelvis ascitis She would not therapeutic paracentesis Will also review with vascular radiologist regarding hepatic vein and hepatic compression by mets lesion Advised to follow up with Dr Mak oncologist 08/14/18 00:32
--- NOTE | 2018-08-13 19:50 | CP.PCM.PN ---
Subjective - Date & Time of Evaluation Date of Evaluation: 08/12/18 Time of Evaluation: 12:00 - Subjective Subjective: Feels bloated. Objective - Vital Signs/Intake and Output Vital Signs (last 24 hours): Temp Pulse Resp BP Pulse Ox 97.8 F 100 H 20 111/71 99 08/13/18 06:00 08/13/18 06:00 08/13/18 06:00 08/13/18 10:52 08/13/18 06:00 Intake and Output: 08/13/18 08/14/18 18:59 06:59 Intake Total 720 Balance 720 - Labs Labs: 08/13/18 06:00 08/13/18 06:00 PT 17.3 SECONDS (9.4-12.5) H 08/09/18 22:30 INR 1.50 08/09/18 22:30 APTT 29.5 Seconds (25.1-36.5) 08/09/18 22:30 - Head Exam Head Exam: ATRAUMATIC - Eye Exam Eye Exam: Normal appearance - ENT Exam ENT Exam: Mucous Membranes Dry - Respiratory Exam Respiratory Exam: NORMAL BREATHING PATTERN - Cardiovascular Exam Cardiovascular Exam: +S1, +S2 - GI/Abdominal Exam GI & Abdominal Exam: Normal Bowel Sounds Assessment and Plan (1) Anemia Assessment & Plan: retic, b12, folate, ferritin to further characterize secondary to bone marrow metastasis and chronic disease from progressive malignancy transfusion support PRN Status: Acute (2) Leukopenia Assessment & Plan: no neutropenia Status: Acute (3) Breast cancer Assessment & Plan: stage IV LFT derangements secondary to progressive metastasis to liver would benefit from outpatient chemotherapy to decrease tumor burden; to be treated once discharged Status: Acute
--- NOTE | 2018-08-13 19:51 | CP.PCM.PN ---
Subjective - Date & Time of Evaluation Date of Evaluation: 08/13/18 Time of Evaluation: 11:00 - Subjective Subjective: Feels bloated. Objective - Vital Signs/Intake and Output Vital Signs (last 24 hours): Temp Pulse Resp BP Pulse Ox 97.8 F 100 H 20 111/71 99 08/13/18 06:00 08/13/18 06:00 08/13/18 06:00 08/13/18 10:52 08/13/18 06:00 Intake and Output: 08/13/18 08/14/18 18:59 06:59 Intake Total 720 Balance 720 - Labs Labs: 08/13/18 06:00 08/13/18 06:00 PT 17.3 SECONDS (9.4-12.5) H 08/09/18 22:30 INR 1.50 08/09/18 22:30 APTT 29.5 Seconds (25.1-36.5) 08/09/18 22:30 - Head Exam Head Exam: ATRAUMATIC - Eye Exam Eye Exam: Normal appearance - ENT Exam ENT Exam: Mucous Membranes Dry - Respiratory Exam Respiratory Exam: NORMAL BREATHING PATTERN - Cardiovascular Exam Cardiovascular Exam: +S1, +S2 - GI/Abdominal Exam GI & Abdominal Exam: Normal Bowel Sounds Assessment and Plan (1) Anemia Assessment & Plan: secondary to bone marrow metastasis and chronic disease from progressive malignancy transfusion support PRN Status: Acute (2) Leukopenia Assessment & Plan: no neutropenia Status: Acute (3) Breast cancer Assessment & Plan: stage IV LFT derangements secondary to progressive metastasis to liver would benefit from outpatient chemotherapy to decrease tumor burden; to be treated once discharged Status: Acute
== END 2018-08-13 16:23 | disposition home or self-care (01) | DRG 203 ==
LOC: ED 21:48 → ERH 08-10 01:06 → 5RSO 08-10 03:18
PROVIDERS: ADMIT Internal Medicine; ATTEND Internal Medicine
PROC: 0DJ08ZZ Inspection of Upper Intestinal Tract, Via Natural or Artificial Opening Endoscopic (ICD-10-PCS; principal; 2018-08-11 15:15)
DX: C78.7 Secondary malignant neoplasm of liver and intrahepatic bile duct (principal); R18.8 Other ascites; C79.51 Secondary malignant neoplasm of bone; C78.00 Secondary malignant neoplasm of unspecified lung; C50.912 Malignant neoplasm of unspecified site of left female breast; K21.0 Gastro-esophageal reflux disease with esophagitis; D72.819 Decreased white blood cell count, unspecified; D50.9 Iron deficiency anemia, unspecified